=== PATIENT | female | born 1960 | race Caucasian/White ===

== ENCOUNTER → 2016-07-14 | Outpatient (CLI) | payer MEDICARE, MEDICAID ==
[~2016-07-14] MED LIST: ABILIFY20 MG PO; ACTOS30 MG PO; AEROCHAMBER1 DEV IH; ALBUTEROL-200 PUFFS/ IH; ANUSOL HC 25MG25 MG PR; ASPIRIN ADULT L81 MG PO; ASPIRIN CHILDRE81 MG PO; ASPIRIN325 MG PO; AUGMENTIN XR 101 TER PO; AZITHROMYCIN250 M1 PO; CIPRO 500MG TA500 MG PO; CLARITIN 10MG T10 MG PO; CRESTOR20 MG PO; CRESTOR40 MG PO; DIAZEPAM10 MG PO; DILAUDID2 MG PO; DOXYCYCLINE HY100 M4 PO; EFFIENT10 M1 PO; ESTRACE 2MG. TAB2 MG PO; ESTRADIOL1 MG PO; ESTRADIOL2 MG PO; Estrace 1MG Tabl1 MG PO; FENTANYL 225 MCG/EAC; FLOMAX 0.4MG C0.4 MG PO; GEMFIBROZIL600 M1 OR; HYDROCODONE 7.51 TAB PO; HYDROCODONE-APA1 TA1 PO; IMDUR30 MG PO; IPRATROPIUM BROM3 M1 IH; KEFLEX 500MG.500 MG PO; LASIX20 MG PO; LOVAZA1 GM PO; LYRICA50 MG PO; MEDROL 4MG. DOSE4 MG PO; METOPROLOL25 MG PO; MOMETASONE FUROA0.11 TP; MOTRIN800 MG PO; NAPROXEN SODIU500 MG PO; NASONEX0.05 MG/AC NS; NITROQUICK0.4 MG SL; NORCO 325 MG-51 TAB PO; OMEGA-31000 MG PO; OMEPRAZOLE20 MG PO; OMEPRAZOLE40 MG PO; PERCOCET1 TA1 PO; PLAVIX75 MG PO; POTASSIUM CHLO10 ME3 PO; PREDNISONE20 MG PO; PROMETHAZINE HC25 M1 PO; PROMETHAZINE25 M1 PO; PROSED D/S1 TAB PO; RANEXA1000 M2 PO; RANEXA500 M1 PO; SLEEP MED PO; SYNTHROID 0.0.125 MG PO; SYNTHROID 0.10.15 MG PO; SYNTHROID0.1 MG PO; TESSALON PERLE100 MG PO; TRAMADOL 50MG T50 MG PO; TRAZODONE HCL50 MG PO; TRAZODONE100 MG PO; TRILIPIX45 M1 PO; TUSSIGON 1.5 MG1 TAB PO; VALIUM10 MG PO; VALIUM5 MG PO; VITAMIN D1000 IU PO; ZITHROMAX Z PA250 MG PO; ZOFRAN ODT4 MG PO; ZOLOFT100 MG PO
--- NOTE | 2016-07-15 07:48 | RADIOLOGY REPORT PS360 ---
KUB (SINGLE VIEW) ORDERING PHYSICIAN : Rex Delgado MD PATIENT AGE: 56 years GENDER: Female INDICATION: LEFT KIDNEY STONE F/U left urinary tract obstruction follow-up TECHNIQUE: Supine abdomen radiograph-KUB COMPARISON: Previous KUB 07/04/[address] abdomen 06/29/2016 FINDINGS Left kidney 3 or 4 tiny faint calculi identified within the calyces of left kidney from upper to lower pole. These each appear to measure less than 2.5-3 mm mm size on plain film. Faintly seen but they do seem to match the calculi seen on recent CT June 29, 2016. The patient also had a calculus at the proximal left ureter on that image which I initially question may be projected over the tip of left transverse process of L3, but is similar appearance was seen on a previous plain film from October 2014 and thus this may be the patient's baseline appearance here as I would've expected the calculus didn't migrated further distally The small density projected over the left sacrum just medial to the inferior SI joint is also a stable finding since 2014 and related to either vascular or osseous calcification Right kidney. The small less than 2.5 mm calculi at right kidney on recent CT, at lower pole and mid right kidney is not as readily apparent on plain film. Only questionably evident at right kidney. No calcifications along right ureter. Th Right ureter. Bowel Anastomosis evident at the right pelvis numerous phleboliths otherwise at the pelvic basin are similar to 2015 KUB is well Normal bowel gas pattern IMPRESSION 1. Left kidney. Again note 3 or 4 small punctate less than 3 mm calculi throughout calyces left kidney. 2. The calculus seen at the proximal left ureter is only question is seen.- Possibly could reflect a faint density just off the tip of L3 transverse process (however I would note a similar appearance was seen on 2014 study and this may may reflect the patient's anatomy here) 3. The small punctate calculi at the right kidney are not readily apparent on plain film. Only question is seen
== END ==
LOC: RAD 17:11
DX: N20.1 Calculus of ureter (principal)

== ENCOUNTER → 2016-08-01 | Outpatient (CLI) | payer MEDICARE, MEDICAID ==
--- NOTE | 2016-08-03 09:20 | RADIOLOGY REPORT PS360 ---
CT ABD PELVIS W/O CONTRAST ORDERING PHYSICIAN : Rex Delgado MD PATIENT AGE: 56 years GENDER: Female INDICATION: NEPHROLITHIASIS HISTORY of kidney stones. TECHNIQUE: Helical CT scans abdomen pelvis with no oral nor IV contrast. COMPARISON: June 29, 2016 FINDINGS Lower thorax. Lung bases are clear with no acute findings. Heart upper normal in size with coronary calcification and stents. Abdomen./Pelvis. Lack of oral and IV contrast decreases sensitivity Liver: unremarkable. gallbladder surgically removed. No ductal dilatation Spleen: unremarkable. Normal size. Granulomatous calcifications. Pancreas. No significant findings. Stable minimal calcification mid pancreas possibly from old pancreatitis has been present since 2013. Adrenals unremarkable Previous subtotal colectomy with ileocolic anastomosis rectosigmoid region.. Anastomosis intact with Generous stool through this region.. Small bowel, areas of upper normal wall thickness but no dilatation nor obstruction. Pelvis. Hysterectomy. No adnexal masses. Urinary bladder partially decompressed. No free fluid at pelvis. Kidneys. No current urinary tract obstruction or hydronephrosis Scattered small punctate nonobstructive renal calculi in bilaterally. LEFT KIDNEY.: The largest calculus measuring less than 3.5 mm at the mid left kidney. A scattered few Other small less than 3 mm calculi elsewhere throughout left kidney. Recent left obstructive uropathy noted on June 2014 CT has resolved. No calculi or findings along left ureter. No left ureteral dilatation. No residual hydronephrosis on the left.. RIGHT KIDNEY: tiny less than 2.5 mm calculi lower pole and midportion right kidney Incidental note extensive atherosclerotic calcification of the aorta with what appears to be greater than 70% % cross section stenosis at the distal abdominal aorta. The lumen narrows to 4.4 mm. Warrants cardiovascular consult. Does patient have claudication? . IMPRESSION: 1. The recent left obstructive uropathy June 2016 CT study, has fully resolved. No hydronephrosis. No residual ureteral calculi on left. 2. Scattered small punctate nonobstructive calculi bilaterally noted both kidneys, as detailed in text 3. Incidentally note a fairly high-grade atherosclerotic stenosis distal abdominal aorta, just above bifurcation. Although fairly long-standing warrants vascular/cardiovascular consult.
== END ==
LOC: RAD 07-30 13:45
DX: N20.0 Calculus of kidney (principal)

== ENCOUNTER 2017-05-03 20:01 | Emergency (ER) | payer MEDICARE, MEDICAID ==
[~2017-05-03] VITALS: Ht 160 cm; Wt 79.4 kg
[2017-05-03 20:19] LABS: HEMOGLOBIN 14.7 g/dL (12.2-16.2); LYMPH # 3.5 K/mm3 (0.7-4.5); LYMPH % 33.9 % (10-50.0)
--- NOTE | 2017-05-03 20:24 | Emergency Room Report ---
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 N Clinical Suspician of Infection? N Mental Status: 1 - Regular (Normal Baseline) Sepsis Risk:Low Sepsis Risk Have you (or family members/close friends) recently traveled outside the [place]? N If Yes, where/when: Have you had exposure to infectious disease within the past month? N TB? Other? Specify: Source patient, RN notes reviewed, family, old records Exam Limitations no limitations Comment pt with chest pain which started tonight with rad to back - similiar to prev pain Cardiac Chest Pain Chest pain indicative of cardiac No Timing/Duration this evening Severity moderate ALLERGIES Coded Allergies: aspartame (From [employer] ASPARTAME) (05/01/16) fluconazole (05/01/16) lincomycin (05/01/16) Home Medications Active Scripts TAMSULOSIN HCL (Flomax 0.4MG) 0.4 MG PO QHS #14 CAP Prov: 06/29/16 Ondansetron (Zofran 4MG Odt) 4 MG PO Q8HP PRN NAUSEA AND VOMITING #10 ODT Prov: 06/29/16 Diazepam (Valium) 10 MG PO QID #60 TAB Prov: 05/15/16 Reported Medications Ranolazine (Ranexa) 1,000 MG PO BID Aspirin (Aspirin EC) 81 MG PO DAILY SERTRALINE HYDROCHLORIDE (Zoloft 100MG) 200 MG PO DAILY ALBUTEROL-IPRATROPIUM (Iprat-Albut 0.5-3(2.5) MG/3 Ml) 3 ML IH QIDP Nitroglycerin (Nitroquick) 0.4 MG SL PRN Omeprazole (Omeprazole 40MG) 40 MG PO DAILY #30 ECC Rosuvastatin Calcium (Crestor) 40 MG PO DAILY Levothyroxine Sodium (Synthroid 0.125MG) 0.125 MG PO DAILY Mometasone Furoate 15 GM TP QHS #60 History Medical History General CAD? Yes Angina: Yes GA: Yes Hypertension? Yes Hyperlipidemia? Yes CHF? Yes DVT? No PE? No COPD? Yes Asthma? No Anemia? No GERD? No Gastric ulcers? No GI Bleed? No Hernia? Yes Thyroid Problems? No Hypothyroidism? No CVA? No Seizures? No Diabetes? Yes Insulin Dependent: No Insulin Pump: No Home FSBS? Yes Renal Insuffiency? No End Stage Renal Disease? No UTI? Yes Stones? No BPH? No GB Disease: Yes Nephritic Syndrome? No Asplenia? No Hepatitis? No Sickle Cell Disease? No Arthritis? No Migraines? No Cataracts? No Glaucoma? No MRSA? No HIV? No TB? No Anxiety? Yes Depression? No Cancer? No More? No Immunization Hx DT/Tetanus Unknown Flu 2015-FSN Pneumonia Received In Past Surgical Hx Previous Surgery?Y Tubal Ligation T&A,BLADDER X 6 EXP SURGERY/TOENAILS HEMMORRHOID/HEART STENTX8 APPY/RT ELBOW HYSTERECTOMY ERCP COLON SURGERY GB,RIGHT SHOULDER UMBILICAL HERNIA X 5 THYROID LYMPH NODE IN LEFT NECK GOITER/OPEN HEART PART. RIGHT LYMPH NODE CABG X 2,LAST 08/03/07 DIGITAL [employer]OR Hx LMP N/A Family History Family Hx Diabetes Yes CAD Yes Hypertension No Hyperlipidemia Yes Cancer Yes TB No Social History Smoking Hx Smoker: Current Every Day Smoker Tobacco: Yes Type N/A Packs/day < 1 Pack Are you/the child exposed to second-hand smoke: Yes Alcohol Alcohol: No Drugs none Review of Systems All Other Systems Reviewed and Negative Constitutional denies fever Eyes denies drainage ENT denies: ear pain, epistaxis, throat pain. Respiratory denies cough, denies shortness of breath Cardiovascular chest pain, denies palpitations, denies syncope Gastrointestinal denies abdominal pain, denies vomiting Genitourinary denies: dysuria, frequency, hesitancy, hematuria. Musculoskeletal denies back pain, denies joint pain, denies joint swelling, denies neck pain Skin denies rash Psychiatric/Neurological denies headache, denies seizure Physical Exam Vital Signs Vital Signs Date Time Temp Pulse Resp B/P Pulse O2 O2 Flow FiO2 Ox Delivery Rate 05/032 61 18 132/73 93 05/03 2125 20 05/03 2125 67 18 125/64 93 05/03 2040 101 18 144/84 96 05/03 2004 98.2 66 18 139/71 100 - WBC >12,000 or <4,000 or 10% bands? 2 or more SIRS Criteria Met? B/P:132/73 MAP:93 Creatinine >2.0? UA output<0.5ml/kg/hr for 2 hrs? Platelet count >100,000? Lactate >2.0mmol/1? INR >1.2 or PTT > than 60 sec? Evidence of Organ Dysfunction? Provider documented clinical suspician of infection? N Sepsis Criteria Count: 0 Sepsis Risk: Low Sepsis Risk General Appearance no apparent distress Eye Exam - bilateral eye PERRL, bilateral eye EOMI Ear, Nose, Throat normal ENT inspection Neck supple Respiratory Status No: respiratory distress. Lung Sounds bilateral: lungs clear. Cardiovascular regular rate/rhythm Peripheral Pulses Pulses normal Yes Gastrointestinal soft Extremities normal inspection Strength 4 Upper Ext (L), 4 Upper Ext (R), 4 Lower Ext (L), 4 Lower Ext (R) Neurologic alert, cashier general II-XII nml as tested, no motor/sensory deficits Reflexes Reflexes normal No Mental status normal mood/affect Skin intact Medical Decision Making LABS/Meds/Orders Pt receiving controlled substance in ED? No Results/Orders Laboratory Tests 05/03/174: Troponin I < 0.02 05/03/172004: Sodium 143, Potassium 3.7, Chloride 105, Carbon Dioxide 25, BUN 14, Creatinine 0.9, Estimated Creat Clear 86, Estimated GFR (MDRD) 65, Glucose 178 H, Calcium 9.4, Total Bilirubin 0.3, AST 18, ALT 29, Alkaline Phosphatase 177 H, Creatine Kinase 48, CK-MB (CK-2) Rel Index 2.5, CK and CKMB Interp 1.2, Troponin I < 0.02 , Total Protein 8.2, Albumin 4.0, Globulin 4.2 H, Albumin/Globulin Ratio 1.0 L , WBC 10.3, RBC 4.99, Hgb 14.7, Hct 44.7, MCV 89.7, RDW 13.9, Plt Count 204, MPV 8.0, Gran % 60.2, Gran # 6.2, Lymphocytes % 33.9, Monocytes % 3.3, Eosinophils % 1.7, Basophils % 0.9, Lymphocytes # 3.5, Monocytes # 0.3, Eosinophils # 0.2, Basophils # 0.1, PUBS MCHC 32.8, MCH 29.4 Current Medication Orders Sig/Lesley Start time Last Medication Dose Route Stop Time Status Admin Diphenhydramine HCl 25 MG ONCE ONE 05/03 2130 DC 05/03 IV 05/03 Hydromorphone HCl 1 MG ONCE ONE 05/03 2130 DC 05/03 IV 05/03 Diphenhydramine HCl 0 .STK-MED ONE 05/03 2122 DC .ROUTE Hydromorphone HCl 0 .STK-MED ONE 05/03 2121 DC .ROUTE Famotidine 0 .STK-MED ONE 05/03 2036 DC IV Metoclopramide HCl 0 .STK-MED ONE 05/03 2035 DC .ROUTE Famotidine 20 MG ONCE ONE 05/03 2030 DC 05/03 IV 05/03 Metoclopramide HCl 10 MG ONCE ONE 05/03 2030 DC 05/03 IVP 05/03 Sodium Chloride 8 ML ONCE ONE 05/03 2030 DC 05/03 IV 05/03 Sodium Chloride 10 ML PRN PRN 05/03 2015 AC IV 05/04 2009 Orders Procedure Date/time Status TROPONIN I 05/03 2148 Complete ELECTROCARDIOGRAM REQUEST 05/03 2009 Active CHEST-PORTABLE 05/03 2009 Active IV SALINE LOCK 05/03 2009 Active CBC WITH AUTO DIFF 05/03 2009 Complete CARDIAC ENZYMES 05/03 2009 Complete CHEM 12 PROFILE 05/03 2009 Complete 12 LEAD EKG-ADRIEL (INITIAL) 05/03 UNK Active CM/EKG CM/coronary care unit nurse Rhythm Normal Sinus Rhythm EKG compared w/(date of old), non-spec. ST/Twave chgs XRAY/CT/US XRAY/CT/US XRAY chest XR interpretation by reviewed by me Xray Results normal/NAD Departure Departure Time of Disposition 2234 Disposition DC Home or Self Care(routine) Clinical Impression Primary Impression: Chest pain Qualifiers: Chest pain type: precordial pain Qualified Code: R07.2 - Precordial pain Condition STABLE Referrals Emani Kasper MD (Family) Patient Instructions DI for Chest Pain Additional Instructions call pcp and card in am for follow up Discharge Counseling Counseled pt/family regarding diagnosis, test results, medications/RX, follow up needs ED Critical Care Critical Care No at [id number]
[2017-05-03 20:40] LABS: BUN 14 mg/dL (7-18)
[2017-05-03 20:42] LABS: GFR (ESTIMATED) 65 ML/MIN (59-)
--- OUTSIDE RECORDS SUMMARY | 2017-05-03 20:48 | External Medical Summary Rpt | CCD ---
Author Author , MARY Organization MARY Address Unknown Phone Care Team Providers Care Moss Bleacher Name Role Phone WAYNE DE, WAYNE Unavailable Unavailable DE WAYNE, LUCIE D, Unavailable Unavailable WAYNE, LUCIE D [facility], Unavailable Unavailable [facility] Unavailable Unavailable [facility], [facility] Unavailable Unavailable ASSOCIATES, PSC, [facility], Unavailable Unavailable [facility] BESSON, MICHELLE A, Unavailable Unavailable BESSON, MICHELLE A JUNI GUADALUPE, JUNI GUADALUPE Unavailable Unavailable ALVIN ANT, ALVIN ANT Unavailable Unavailable [facility] Unavailable Unavailable SERVICE, [facility] Unavailable Unavailable SERVICE, [facility], Unavailable Unavailable [facility], Unavailable Unavailable [facility], Un[facility], Unavailable Unavailable [facility] Unavailable Unavailable HEALTH, [facility] LEOPOLDO Joaquin, LEOPOLDO Joaquin Unavailable Unavailable LEOPOLDO Benton, LEOPOLDO Joaquin Unavailable Unavailable G Emani MINA COOPER, Unavailable Unavailable Emani Benton CROSSFIELD, DANNITA, Unavailable Unavailable CROSSFIELD, DANNITA XOCH[facility]L CINDY, Unavailable Unavailable XOCHITL CINDY PHU LEUNG, Unavailable Unavailable [facility], PHU [facility], Unavailable Unavailable [facility] SHIREEN BLACK Unavailable Unavailable [facility], Unavailable Unavailable [facility] ESAU ARRIOLA T, Unavailable Unavailable ESAU ARRIOLA T [facility] Unavailable Unavailable [facility], [facility] Unavailable Unavailable [facility]OCIATES, [facility] STACY DOMINGUEZ Unavailable Unavailable CARLOS HICKMAN, Unavailable Unavailable CARLOS HICKMAN S [facility] [facility], [facility] Unavailable Unavailable PAIN CAPONE JAMI, CAPONE Unavailable Unavailable JAMI HARRIES LORETO HARRIES Unavailable Unavailable LORETO [facility] Unavailable Unavailable INC, [facility] Unavailable Unavailable HOSPITAL P, [facility] P RAY, JESUS A, Unavailable Unavailable RAY, JESUS A [facility], Unavailable Unavailable [facility] Cathy Mcelroy EQUIPMENT INSTALLATION PROFESSIONAL, Unavailable Unavailable Cathy Mcelroy EQUIPMENT INSTALLATION PROFESSIONAL KEEDY LORETO, KEEDY LORETO Unavailable Unavailable [facility] Unavailable [facility], [facility] & Unavailable Unavailable HAND [facility], [facility] Unavailable Unavailable [facility], [facility] RODRIGUEZ EHSAN, RODRIGUEZ Unavailable Unavailable EHSAN ADRIEL JR DWI, ADRIEL Unavailable Unavailable JR DWI ADRIEL, JOELLEN E, Unavailable Unavailable ADRIEL, JOELLEN E [facility] Unavailable Unavailable LABORATORY, [facility] Unavailable Unavailable [facility], [facility] Unavailable Unavailable SERVICES, [facility] ALEXANDREA DUNHAM IGGY, Unavailable Unavailable ALEXANDREA DUNHAM IGGY [facility]IC [facility], MUSIC SIL[facility]IA Unavailable [facility]available [facility] Unavailable Unavailable [facility], [facility] Unavailable Unavailable [facility], [facility] KASSY DOBBINS, Unavailable Unavailable KASSY DOBBINS, Unavailable Unavailable Viry BARRETT, Unavailable Unavailable Viry BERRY [facility] & Unavailable Unavailable HOME [facility], [facility], Unavailable Unavailable [facility] Unavailable Unavailable LAB, [facility] Unavailable Unavailable LAB, PATHOLOGY & CYTOLOGY LAB HER, LITO, HER, Unavailable Unavailable [facility] & Unavailable Unavailable ANKLE SPECI, [facility] Unavailable Unavailable [facility]OC [facility], [facility] STARLA, SAMSON, STARLA, Unavailable Unavailable SAMSON RECHTIN ASSOCIATE DRAFTER, RECHTIN Unavailable Unavailable ASSOCIATE DRAFTER PAULO, JIMENEZ S, PAULO, Unavailable Unavailable JIMENEZ S VIC PURVIS Unavailable Unavailable Emani HO, Unavailable Unavailable Emani HO JAMES L, Unavailable Unavailable SYED TAFOYA SCHUMER Unavailable Unavailable BAR BANDAR WARREN, BANDAR Unavailable Unavailable BRIANA SOKAN, ANAYELI O, Unavailable Unavailable SOKAN, ANAYELI O [facility] Unavailable Unavailable EQUIPME, [facility] Unavailable Unavailable PHYSICIANS EKG, [facility] EKG [facility], Unavailable Unavailable [facility], Unavailable Unavailable [facility] MARGARET STEVENS, Unavailable Unavailable MARGARET STEVENS [facility], Unavailable [facility] Unavailable Unavailable [id number], [id number] NAYE PARKINSON, Unavailable Unavailable ESAU BALDWIN III, CHINO, Unavailable Unavailable TACOS CURRIE Unavailable Unavailable MICHELL MUNIZ, Unavailable Unavailable MICHELL FONG Purpose Continuity of Care Document - 07-05-2007 through 2016 Problems Code Diagnosis DOS Provider Status J449 CHRONIC 03-04-2017 [facility]IVE [facility] HOME PULMONARY HEALTH DISEASE UNS R159 FULL 03-04-2017 [facility] INCONTINENC H HOME E OF FECES HEALTH R32 UNSPECIFIED 03-04-2017 [facility] URINARY H HOME INCONTINENC HEALTH E E119 TYPE 2 02-22-2017 [facility] DIABETES HOME MELLITUS MEDICAL WITHOUT EQUIPME COMPLICATIO NS [id number] OTH 02-22-2017 [facility] FRACTURE HOME UNS LOWER MEDICAL LEG INIT EQUIPME ENC CLOS FX R072 PRECORDIAL 12-25-2016 NEW PAIN [facility] PSC R5381 OTHER 12-25-2016 NEW MALAISE [facility] PSC I10 ESSENTIAL 12-09-2016 [facility] P N B48585 ATHEROSCLER 12-09-2016 [place] OSIS CABG [facility] P ANGINA PECTORIS R079 CHEST PAIN 12-09-2016 [facility]PEC[facility] N200 CALCULUS OF 08-01-2016 [facility] N201 CALCULUS OF 07-29-2016 [place] URETER [facility] P Z09 ENC F/U 07-29-2016 [place] [facility] CMPL TX [facility] P THAN MALIG NEOPLSM V86329 PERSONAL 07-29-2016 [place] [facility] P CALCULI I2510 ASHD [place] 06-29-2016 [place] CORONARY [facility] ARTERY W/O INC ANGINA PECTORIS N132 HYDRONEPHRO 06-29-2016 [place] SIS W/RENAL MEDICAL & URETRL IMAGING ASS CALCULOUS OBST R1032 LEFT LOWER 06-29-2016 [place] QUADRANT [facility]ICAL PAIN IMAGING ASS Z720 TOBACCO USE 06-29-2016 [facility] INC J309 ALLERGIC 06-05-2016 [facility] RHINITIS PHYSICIANS UNSPECIFIED GROUP R05 COUGH 06-05-2016 [facility] J189 PNEUMONIA 05-12-2016 [facility] P R0602 SHORTNESS 05-12-2016 [facility] IM[facility]ING ASS R0989 OTH SPEC SX 05-12-2016 [place] & SIGNS MEDICAL INVLV THE IMAGING ASS CIRC & RESP SYS I509 HEART 05-01-2016 [facility] FAILURE [facility] UNSPECIFIED INC I08592 UNSPECIFIED 05-01-2016 [place] ASTHMA [facility] WITH ACUTE INC EXACERBATIO N J80 ACUTE 05-01-2016 [facility] RESPIRATORY AMBULANCE DISTRESS SERVICE SYNDROME R000 TACHYCARDIA 05-01-2016 [facility] UNSPECIFIED SERVICE R7989 OTHER SPEC 05-01-2016 [facility] ABNORMAL MEDICAL FINDINGS IMAGING ASS BLOOD CHEMISTRY J441 CHRONIC 04-24-2016 [place] OBSTRUCTIVE [facility] HOS[facility] PULMONARY INC DZ W/EXACERBAT ION J42 UNSPECIFIED 02-27-2016 [place] CHRONIC [facility] BRONCHITIS INC R911 SOLITARY 02-27-2016 [place] PULMONARY MEDICAL NODULE IMAGING ASS E785 HYPERLIPIDE 01-31-2016 [facility] U[facility]PEC[facility]IED [facility]INIC PSC 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 01-17-2016 [facility] UNS BHV PHYSICIANS ENDOCRN GROUP GLAND & OTH PART NS E039 HYPOTHYROID 01-17-2016 [facility] ISM PHYSICIANS UNSPECIFIED GROUP H9110 PRESBYCUSIS 01-17-2016 [facility] PHYSICIANS UNSPECIFIED GROUP EAR H905 UNSPECIFIED 12-06-2015 [facility] PHYSICIANS SENSORINEUR GROUP AL HEARING LOSS N3020 OTHER 09-18-2015 [facility] CYSTITIS [facility] P WITHOUT HEMATURIA R350 FREQUENCY 09-18-2015 [facility] MICTURITION [facility] P R351 NOCTURIA 09-18-2015 [facility] P R102 PELVIC AND 08-14-2015 [place] PERINEAL [facility] P 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 R001 BRADYCARDIA 08-03-2015 NEW [facility] UNSPECIFIED CLINIC PSC R300 DYSURIA 08-03-2015 [facility] R9431 ABNORMAL 08-03-2015 NEW ELECTROCARD [facility] IOGRAM CLINIC PSC [id number] FOREIGN 08-03-2015 [facility] TRACT INITIAL ENC [id number] EROSION 08-03-2015 [facility] OTHER HOSPITAL IMPLANTED MESH ORGN/TISS INITIAL G4733 OBSTRUCTIVE 07-06-2015 [facility] SLEEP HOME APNEA ADULT MEDICAL PEDIATRIC EQUIPME N210 CALCULUS IN 04-20-2015 NEW BLADDER [facility]INIC PSC N211 CALCULUS IN 04-20-2015 [facility] PSC N9989 OTH 04-20-2015 [facility] POSTPROC HOSPITAL COMP DISORDERS GENITOURINA RY SYSTEM R319 HEMATURIA 04-20-2015 [facility] UNSPECIFIED HOSPITAL L029VFF FOREIGN 04-20-2015 NEW BODY IN [facility] BLADDER CLINIC PSC INITIAL ENCOUNTER [id number] OTH MECH 04-20-2015 [facility] COMP OTH ASSOCIATES URINARY PSC DEVICES IMPL INIT ENC N34061U EXPOSURE OF 04-20-2015 [facility] IMPL HOSPITAL MESH INTO ORGN/TISS INITIAL Z7982 CUSTODIAL 04-20-2015 [facility] CURRENT USE [facility] P31146 OTHER LONG 04-20-2015 [facility] CURRENT DRUG THERAPY G4736 SLEEP REL 04-07-2015 [facility] HYPOV[facility] NEUROSCIENC TION ES CENT CONDITIONS CLASS ELSW G4730 SLEEP APNEA 04-04-2015 [facility] UNSPECIFIED INC R1030 LOWER 04-04-2015 [facility] ABDOMINAL MEDICAL PAIN IMAGING ASS UNSPECIFIED 59174 OBSTRUCTIVE 03-06-2015 [facility] SLEEP HOME APNEA MEDICAL EQUIPME 14346 HYPOXEMIA 02-15-2015 [facility] NEUROSCIENC ES CENT 7802 SYNCOPE AND 02-05-2015 NURSES COLLAPSE REGISTRY & HOME HE 26731 UNSPECIFIED 02-05-2015 NURSES URINARY REGISTRY & [place] [address] DIAB W/O 01-01-2015 [facility] COMP TYPE MEDICAL II/UNS NOT STATED UNCNTRL 496 CHRONIC 12-20-2014 [facility] AIRWAY HOME OBSTRUCTION MEDICAL NEC EQUIPME 8248 UNSPECIFIED 12-20-2014 [facility] CLOSED HOME FRACTURE OF MEDICAL ANKLE EQUIPME 5920 CALCULUS OF 10-23-2014 [facility] 23240 ABDOMINAL 10-23-2014 [place] PAIN, MEDICAL UNSPECIFIED IMAGING ASS SITE 28540 CHEST PAIN 10-16-2014 UNSPECIFIED [facility] EKG 486 PNEUMONIA, 08-22-2014 [facility] INC 515 POSTINFLAMM 08-22-2014 [facility] ATORY MEDICAL PULMONARY IMAGING ASS FIBROSIS 15024 OTHER 08-22-2014 [place] DISEASES OF MEDICAL LUNG NOT IMAGING ASS ELSEWHERE CLASSIFIED 7821 RASH AND 08-22-2014 [facility] OTHER MEM [facility] NONSPECIFIC INC SKIN ERUPTION 7862 COUGH 08-22-2014 [facility] 7993 UNSPECIFIED 07-14-2014 NEW DEBILITY [facility] PSC 25555 ABDOMINAL 07-12-2014 [facility] PAIN, MEM HOSP EPIGASTRIC INC 4739 UNSPECIFIED 07-05-2014 [facility] SINUSITIS MEM HOS[facility] INC 8300 CLOSED 07-05-2014 [place] DISLOCATION MEDICAL OF JAW IMAGING ASS 2459 UNSPECIFIED 04-18-2014 [facility] THYROIDITIS INC 48538 DYSPHAGIA 04-18-2014 [facility] UNSPECIFIED MEM HOSP INC 4149 UNSPECIFIED 12-15-2013 [facility] CHRONIC ISCHEMIC HEART DISEASE 28746 SWELLING OF 12-15-2013 [facility] [place] [facility] 96534 OTHER CHEST 12-15-2013 [place] GIN PAIN 19064 GEN 05-30-2013 [facility] OSTEOARTHRO L REHAB SIS ASSOC PSC INVOLVING MULTIPLE SITES 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 03777 CORONARY 05-24-2013 SARTINI J ATHEROSCLER OSIS [place] CORONARY ARTERY 7242 LUMBAGO 04-20-2013 [place] [facility] INC 81851 REFLUX 03-30-2013 [facility] ANT ESOPHAGITIS 5952 OTHER 03-08-2013 WAYNE DE CHRONIC CYSTITIS 59885 OTHER 03-04-2013 X[facility] DISEASES OF CINDY SPLEEN 4400 ATHEROSCLER 03-04-2013 [facility] OSIS OF CINDY AORTA 5718 OTHER 03-04-2013 [facility] CHRONIC CINDY NONALCOHOLI C LIVER DISEASE 5929 UNSPECIFIED 03-04-2013 [facility] URINARY MEM HOSP CALCULUS INC 17255 ABDOMINAL 03-04-2013 [facility] PAIN, LEFT MEM HOSP UPPER INC QUADRANT 4439 UNSPECIFIED 01-06-2013 FINE ALEXEI PERIPHERAL VASCULAR DISEASE 27015 OTHER 01-04-2013 JUNI GUADALUPE SPECIFIED CARDIAC DYSRHYTHMIA S 48087 ATHEROSLERO 01-04-2013 JUNI GUADALUPE NATV ART EXTREM W/INTERMIT CLAUDICAT 5303 STRICTURE 01-04-2013 CAPONE JAMI AND STENOSIS OF ESOPHAGUS 2724 OTHER AND 01-03-2013 ADRIEL DUNHAM UNSPECIFIED DWI HYPERLIPIDE MARGARET 4019 UNSPECIFIED 01-03-2013 ADRIEL DUNHAM ESSENTIAL DWI HYPERTENSIO N 4111 INTERMEDIAT 01-03-2013 [facility] Lara CORONARY EMERGENCY SYNDROME SERVICES 412 OLD 01-03-2013 ADRIEL DUNHAM MYOCARDIAL DWI INFARCTION 4139 OTHER AND 01-03-2013 ADRIEL UNSPECIFIED DWI ANGINA PECTORIS 4293 CARDIOMEGAL 01-03-2013 X[facility]CH[facility] Y CINDY 00807 NONSPECIFIC 01-03-2013 JUNI GUADALUPE ABNORMAL ELECTROCARD IOGRAM V4581 POSTSURGICA 01-03-2013 XOCHITL L CINDY AORTOCORONA RY BYPASS STATUS 2449 UNSPECIFIED 11-29-2012 RODRIGUEZ EHSAN HYPOTHYROID ISM 05246 ACUT ID 09-21-2012 VIC Joaquin SUBENDOCARD IAL INFARCT EPIS CARE UNS 05627 ACUT ID 09-19-2012 MARITA DANGELO SUBENDOCARD IAL INFARCT INIT EPIS CARE 73400 OTHER 09-18-2012 ADRIEL DUNHAM CONVULSIONS DWI 6929 CONTACT 09-16-2012 MUSIC SILVIA DERMATITIS& OTHER ECZEMA DUE UNSPEC CAUSE 6953 ROSACEA 09-16-2012 MUSIC SILVIA 2448 OTHER 08-24-2012 [facility] SPECIFIED HOSPITAL ACQUIRED HYPOTHYROID ISM 21791 INCI HERNIA 08-24-2012 [facility] WITHOUT HOSPITAL MENTION OBSTRUCTION /GANGRENE V5866 LONG-TERM 08-24-2012 [facility] USE OF [facility]ITAL [facility] V5869 LONG-TERM 08-24-2012 [facility] (CURRENT) HOSPITAL USE OF OTHER MEDICATIONS 5989 UNSPECIFIED 07-13-2012 [facility] P 4659 ACUTE URIS 05-13-2012 ALEXANDREA DUNHAM OF [facility] UNSPECIFIED SITE 485 BRONCHOPNEU 04-07-2012 BANDAR DYSON ORGANISM UNSPECIFIED 77928 COR 03-19-2012 [facility] TYPE VESSEL [place]/LOVELY T 5969 UNSPECIFIED 03-19-2012 VIC Joaquin DISORDER OF BLADDER 68684 OSTEOARTHRO 03-19-2012 [facility] HOSPITAL WHETHER GEN/LOC UNSPEC SITE 08409 MIXED 03-19-2012 [facility] HOSPITAL E URGE AND STRESS 49749 URINARY 03-19-2012 [facility] HOSPITAL 6259 UNSPEC 03-16-2012 WAYNE DE SYMPTOM ASSOC W/FEMALE GENITAL ORGANS 06842 INCOMPLETE 03-16-2012 WAYNE DE BLADDER EMPTYING 13383 DISPLCMT 03-09-2012 [place] LUMBAR MEDICAL INTERVERT IMAGING ASS DISC W/O MYELOPATHY 96293 ABDOMINAL 03-09-2012 [facility] PAIN RIGHT [facility] LOWER INC QUADRANT 88521 MIGRAINE 03-08-2012 JAMAL R UNS H W/INTRACTAB L W/O STATUS MIGRAINOSUS 73320 URETHRAL 03-02-2012 WAYNE DE SYNDROME NOS 7231 CERVICALGIA 12-21-2011 [facility] 61595 OTHER 12-21-2011 WEHRMAN III MALAISE AND IGGY FATIGUE 7840 HEADACHE 12-21-2011 WEHRMAN III IGGY E8889 UNSPECIFIED 12-21-2011 [facility] 3384 CHRONIC 12-11-2011 LEOPOLDO Benton PAIN SYNDROME 4280 CONGESTIVE 12-11-2011 LEOPOLDO Benton HEART FAILURE UNSPECIFIED 84851 MICROSCOPIC 12-11-2011 LEOPOLDO Benton HEMATURIA 68942 ABDOMINAL 12-11-2011 LEOPOLDO Benton PAIN, GENERALIZED 2768 HYPOPOTASSE 11-12-2011 LEOPOLDO Benton MARGARET 4292 UNSPECIFIED 11-12-2011 LEOPOLDO Benton CARDIOVASCU LAR DISEASE 61419 NAUSEA 10-31-2011 [facility] [place] [facility] 18671 ABDOMINAL 10-31-2011 [facility] PAIN RIGHT EMERGENCY UPPER SERVICES QUADRANT 7934 NONSPECIFIC 10-31-2011 SHIREEN STEFAN ABN FINDING RAD & OTH EXAM GI TRACT 41554 OTHER 10-31-2011 [facility] ILL-DEFINED EMERGENCY CONDITIONS SERVICES 64270 UNSPECIFIED 10-30-2011 RECHTIN ASSOCIATE DRAFTER PYELONEPHRI TIS 5921 CALCULUS OF 09-25-2011 NEW URETER [facility] PSC 2689 UNSPECIFIED 09-23-2011 WAYNE DE VITAMIN D DEFICIENCY 7880 RENAL COLIC 09-21-2011 [facility] 591 HYDRONEPHRO 09-20-2011 [facility] MEDICAL IMAGING ASS 20585 OTHER 09-20-2011 [place] SPECIFIED MEDICAL DISORDER OF IMAGING ASS KIDNEY AND URETER 83404 ABDOMINAL 09-20-2011 LEOPOLDO Joaquin PAIN OTHER SPECIFIED SITE 7291 UNSPECIFIED 08-22-2011 [place] MYALGIA PAIN AND MYOSITIS 78901 UNSPECIFIED 08-15-2011 [place] TE[facility] FILM VISION INSUFFICIEN CY 5180 PULMONARY 08-09-2011 [place] COLLAPSE [facility]ICAL [facility]ING ASS 5183 PULMONARY 08-09-2011 [place] EOSINOPHILI MEDICAL A IMAGING ASS 45811 PAINFUL 08-09-2011 WEHRMAN III RESPIRATION IGGY 55660 PAIN IN 08-01-2011 [facility] DI[facility] PELVIC REGION AND THIGH 83005 MUSCLE 08-01-2011 [facility] WEAKNESS DIABETIC (GENERALIZE D) 26007 OTH COMPS 06-27-2011 NEW DUE OTH [facility]IN[facility] PSC ORTHOPED DEVICE IMPL&GFT 92076 OTH COMPS 06-27-2011 [facility] PSC PROSTH DEVICE IMPL&GFT 70979 OTHER 06-27-2011 ANESTHESIA SPECIFIED ASSOC PSC COMPLICATIO NS NEC V7281 PRE-OPERATI 06-27-2011 NEW VE [facility] CARDIOVASCU CLINIC PSC LAR EXAMINATION 86420 NONUNION OF 06-24-2011 PODIATRIC FRACTURE FOOT & ANKLE SPECI 460 ACUTE 06-11-2011 LEOPOLDO J NASOPHARYNG ITIS 4720 CHRONIC 03-27-2011 [place] RHINITIS [facility] ASS 4660 ACUTE 02-06-2011 [facility] BRONCHITIS ASSOCIATES 7904 NONSPEC 12-13-2010 [place] ELEVATION MEDICAL OF LEVELS IMAGING ASS OF TRANSAMINAS E/LDH 7871 HEARTBURN 10-21-2010 [facility] 6823 CELLULITIS 10-03-2010 [facility] AND ABSCESS EMERGENCY OF UPPER SERVICES ARM AND FOREARM 3569 UNSPEC 09-10-2010 [facility] OPATHIC PERIPHERAL NEUROPATHY 3560 HEREDITARY 09-03-2010 ELENITA LORETO PERIPHERAL NEUROPATHY 18576 PAIN IN 08-07-2010 [place] JOINT, ORTHOPEDIC SHOULDER & HAND S REGION 13395 UNSPEC 07-30-2010 [facility] DISORDERS L REHAB BURSAE&TEND ASSOC [facility] ONS SHOULDER REGION 7265 ENTHESOPATH 07-30-2010 PROFESSIONA Y OF HIP L REHAB REGION ASSOC PSC 8409 SPRAIN&STRA 07-30-2010 PROFESSIONA IN UNSPEC L REHAB SITE ASSOC PSC SHOULDER&UP PER ARM V0260 UNSPECIFIED 07-16-2010 [facility] VIRAL [facility] HEPATITIS INC CARRIER 4610 ACUTE 06-27-2010 RODRIGUEZ EHSAN MAXILLARY SINUSITIS 4779 ALLERGIC 06-27-2010 RODRIGUEZ EHSAN RHINITIS CAUSE UNSPECIFIED 2662 OTHER 03-13-2010 [facility] B-COMPLEX ASSOCIATES DEFICIENCIE S 6278 OTHER SPEC 02-20-2010 [place] MENOPAUSAL& MEDICAL POSTMENOPAU IMAGING ASS ALEC DISORDER V7612 OTHER 02-20-2010 [place] SCREENING MEDICAL MAMMOGRAM IMAGING ASS V762 SCREENING 02-13-2010 PATHOLOGY & FOR CYTOLOGY MALIGNANT LAB NEOPLASM OF THE CERVIX 50881 SHORTNESS 01-30-2010 [facility] P V4509 OTHER 01-30-2010 [facility] SPECIFIED MEM HOSP CARDIAC INC DEVICE IN SITU 7245 UNSPECIFIED 11-21-2009 [facility] BACKACHE [facility] 59797 ESOPHAGEAL 10-01-2009 [place] [facility] REFLUX SERV FOUNDAT[facility] 89772 ATROPHIC 10-01-2009 PATHOLOGY & GASTRITIS CYTOLOGY WITHOUT LAB MENTION OF HEMORRHAGE 50210 OTHER SPEC 10-01-2009 [place] [facility] GASTRITIS SERV WITHOUT FOUNDATIO MENTION HEMORRHAGE V5863 LONG-TERM 10-01-2009 [facility] USE OF MEM HOSP ANTIPLATELE INC T/ANTITHROM BOTIC 7873 FLATULENCE 09-17-2009 [place] ERUCTATION MEDICAL AND GAS IMAGING PAIN ASSOCIATES 5990 URINARY 08-07-2009 [facility] TRACT [facility] INFECTION SITE NOT SPECIFIED 19635 LATERAL 08-07-2009 [facility] EPICONDYLIT ASSOCIATES IS OF [place]BOW 4553 EXTERNAL 06-25-2009 [facility] HEMORRHOIDS EMERGENCY WITHOUT SERVICES MENTION ASSOCIATES COMP 4555 EXTERNAL 06-25-2009 [facility] HEMORRHOIDS MEM HOS[facility] WITH OTHER INC COMPLICATIO N 490 BRONCHITIS 06-11-2009 [facility] NOT ASSOCIATES SPECIFIED ACUTE OR CHRONIC 75295 UNSPECIFIED 05-03-2009 [facility] VIRAL ASSOCIATES INFECTION IN CCE & UNS SITE 57423 CONJUNCTIVA 03-01-2009 [facility] L ASSOCIATES HEMORRHAGE 55425 BLEPHARITIS 02-05-2009 [facility] , ASSOCIATES UNSPECIFIED 53586 [facility] 02-02-2009 NEW COMPLICATIO [facility] N DUE CLINIC PSC CORONARY BYPASS GRAFT 53801 OTHER 01-10-2009 [facility] SPECIFIED ASSOCIATES CIRCULATORY SYSTEM DISORDERS 21718 VOMITING 01-10-2009 [facility] 2440 POSTSURGICA 01-04-2009 [facility] HYPOTHYROID LABORATORY ISM 62731 GLUCOCORTIC 01-02-2009 [facility] DEFICIENCY SERVICE 37416 OTHER ACUTE 01-02-2009 [facility] 7804 DIZZINESS 12-23-2008 [facility] PROF SERV 7919 OTHER 12-23-2008 PSYCHIATRIC EXAMINATION PROF SERV OF URINE 91840 UNSPEC 11-13-2008 [facility] MENTION OBST/GANGRE N V4589 OTHER 10-27-2008 [facility] L STATUS PSC OTHER 60572 MIGRAINE 10-23-2008 [facility] UNSP W/O DENOMINATIONAL INTRACT W/O HOSP STATUS MIGRAINOSUS V443 COLOSTOMY 10-23-2008 [facility] STATUS DENOMINATIONAL HOSP 15220 OTH VENTRAL 10-16-2008 [facility] AIDA W/O [facility] MENTION INC OBSTRUCTION /GANGREN 5789 UNSPECIFIED 10-12-2008 [facility] GASTROINTES TINAL TRACT 51027 ENTHESOPATH 09-13-2008 [facility] UNSPECIFIED SITE 7295 PAIN IN 09-06-2008 [facility] TISSUES OF LIMB 7212 THORACIC 07-25-2008 [facility], SPONDYLOSIS PHU WITHOUT MYELOPATHY 05932 OTH 07-24-2008 [facility] SPECIFIED [facility]OS[facility] INFLAMMATOR INC Y POLYARTHROP ATHIES OTH 22066 SINOATRIAL 06-18-2008 [facility] AMBULANCE DYSFUNCTION SERVICE 97119 PRECORDIAL 06-17-2008 Digital Performance 5950 ACUTE 04-11-2008 [facility] CYSTITIS H UROLOGY PSC 6256 FEMALE 03-21-2008 [facility] STRESS H UROLOGY INCONTINENC PSC E 7262 OTHER 02-29-2008 [facility] NEC V4582 POSTSURG 02-11-2008 [facility] TRANSLUMINA L COR ANGPLSTY STS 09218 DIAB 01-31-2008 Rickey RAY/OPHTH JESUS A MANIFESTS TYPE II/UNS TYPE UNCNTRL 19762 BORDERLINE 01-31-2008 R[facility] RAY OPEN JESUS A ANGLE BL FINDINGS LOW RSK 4785 OTHER 01-27-2008 PATHOLOGY & DISEASES OF CYTOLOGY VOCAL LAB CORDS 71411 DIAB 01-24-2008 [facility] W/NEURO DENOMINATIONAL MANIFESTS HOSP TYPE II/UNS NOT UNCNTRL 3572 POLYNEUROPA 01-24-2008 [facility] THY IN DENOMINATIONAL DIABETES HOSP V4579 OTHER 01-24-2008 [facility] ACQUIRED DENOMINATIONAL ABSENCE OF HOSP ORGAN 2761 HYPOSMOLALI 12-14-2007 [facility] A PROF SERV 62103 OBST 12-14-2007 [facility] BRONCHITIS [facility] W/ACUTE PROF SERV BRONCHITIS 24587 OTHER ACUTE 12-03-2007 [facility] [place] ANESTHESIA POSTOPERATI VE PAIN 98027 NONTRAUMATI 12-03-2007 [place] [facility] C RUPTURE AND HAND OF TENDONS SURGEONS OF [place] PSC 413 ANGINA 11-22-2007 [place] [facility] 52275 UNSPECIFIED 11-02-2007 [facility] RETENTION H UROLOGY OF URINE PSC 7820 DISTURBANCE 10-29-2007 [facility], OF SKIN ESAU SENSATION 42332 THYROTOX 10-06-2007 [facility] W/O [facility]OS[facility] GOITER/OTH INC CAUSE W/O CRISIS 2859 UNSPECIFIED 08-26-2007 [facility] 4011 ESSENTIAL 08-23-2007 [facility] 4259 UNSPECIFIED 08-03-2007 [facility], CARDIOMYOPA PSC THY 4264 RIGHT 08-03-2007 NEW BUNDLE [facility] PSC BLOCK 5119 UNSPECIFIED 08-03-2007 [facility] [place] PLEURAL RADIOLOGY EFFUSION V148 PERSONAL 07-06-2007 [facility] ALLERGY OTH SPEC MEDICINAL AGTS V462 DEPENDENCE 07-06-2007 [facility] ON [facility] [id number] GEN CONVUL 07-05-2007 STARLA, EPILEPSY SAMSON W/O MENTION INTRACT EPILEPSY 780.57 Sleep apnea [facility] [id number] Chronic [facility] R07.9 CHEST PAIN, UNSPECIFIED Allergies, Adverse Reactions, Alerts Type Drug Allergy Propensity to adverse reactions to substance Adverse Reaction to Substance Substance Reaction Severity Lincomycin I-HIVES Intermediate Fluconazole I-RASH Intermediate 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;VOMITING Unknown Clinical Alert Notifications Alert Diabetes: no eye exam in the last 365 days Diabetes: no lipid panel in the last 365 days Diabetes: no urine protein screening in the last 365 days Medications Na ND Rx Da Fi Fi Am Da Di Ph RX Ph St me C No te ll ll ou ys ag ar # ys at rm s nt no ma ic us Or Da si cy ia de te s n re d 00 10 11 30 30 00 CL Ac PI 90 -1 -0 .0 00 IN ti RI 42 0- 3- 00 00 IC ve N 01 20 20 44 EC 36 17 17 51 PH 0 25 AR 32 MA 5 CY MG TA BL ET 00 09 10 30 30 00 CL Ac PI 90 -1 -0 .0 00 IN ti RI 42 3- 6- 00 00 IC ve N 01 20 20 41 EC 36 17 17 83 PH 0 49 AR 32 MA 5 CY MG TA BL ET 00 08 09 30 30 00 CL Ac PI 90 -1 -1 .0 00 IN ti RI 42 7- 5- 00 00 IC ve N 01 20 20 41 EC 36 17 17 83 PH 0 49 AR 32 MA 5 CY MG TA BL ET 00 07 08 30 30 00 CL Ac PI 90 -2 -1 .0 00 IN ti RI 42 0- 8- 00 00 IC ve N 01 20 20 41 EC 36 17 17 83 PH 0 49 AR 32 MA 5 CY MG TA BL ET 00 06 07 30 30 00 CL Ac PI 90 -2 -2 .0 00 IN ti RI 42 2- 1- 00 00 IC ve N 01 20 20 41 EC 36 17 17 83 PH 0 49 AR 32 MA 5 CY MG TA BL ET HY 43 06 06 [address] 38 -0 -3 .0 00 IN ti OC 60 1- 0- 00 00 IC ve OD 11 20 20 43 -H 80 17 17 26 PH OM 1 19 AR AT MA RO CY P 5- 1. 5 MG TA B 00 03 06 30 30 00 CL Ac PI 90 -2 -3 .0 00 IN ti RI 42 8- 0- 00 00 IC ve N 01 20 20 41 EC 36 17 17 83 PH 0 49 AR 32 MA 5 CY MG TA BL ET 00 01 03 30 30 00 CL Ac PI 90 -2 -0 .0 00 IN ti RI 42 6- 3- 00 00 IC ve N 01 20 20 41 EC 36 17 17 83 PH 0 49 AR 32 MA 5 CY MG TA BL ET 00 12 02 30 30 00 CL Ac PI 90 -2 -0 .0 00 IN ti RI 42 9- 3- 00 00 IC ve N 01 20 20 39 EC 36 16 17 01 PH 0 45 AR 32 MA 5 CY MG TA BL ET 00 12 01 30 30 00 CL Ac PI 90 -0 -0 .0 00 IN ti RI 42 1- 9- 00 00 IC ve N 01 20 20 39 EC 36 16 17 01 PH 0 45 AR 32 MA 5 CY MG TA BL ET IP 00 12 0 No RA 48 -2 T- 70 2- Lo AL 20 20 ng BU 10 13 er T 1 0. Ac 5- ti 3( ve 2. 5) MG /3 ML SO 00 12 0 No WOJCIECH 00 -2 -M 90 2- Lo ED 04 20 ng RO 72 13 er L 2 12 Ac 5 ti MG ve AL CE 00 12 0 No FT 78 -2 RI 19 2- Lo AX 32 20 ng ON 89 13 er E 5 1 Ac GM ti ve AL Sa 63 07 0 No li 80 -2 ne 70 2- Lo 10 20 ng Fl 07 13 er us 5 h Ac 10 ti ML ve Sy ri ng e NI 59 07 0 No TR 63 -2 OG 00 2- Lo LY 30 20 ng CE 06 13 er RI 5 N Ac 0. ti 4M ve G/ DO SE SP RA Y GI 12 07 0 No 32 -2 CO 22 2- Lo CK 22 20 ng TA 22 13 er IL 2 Ac 60 ti ML ve UD C Mo 00 07 0 No rp 40 -2 hi 91 2- Lo ne 25 20 ng 83 13 er 4M 0 G/ Ac Ml ti ve Sy ri ng e Mo 00 07 0 No rp 40 -2 hi 91 2- Lo ne 25 20 ng 83 13 er 4M 0 G/ Ac Ml ti ve Sy ri ng e NT 00 07 0 No G 40 -2 0. 91 2- Lo 2 48 20 ng MG 20 13 er /M 2 L Ac IN ti ve D5 W Mo 00 04 0 No rp 40 -0 hi 91 7- Lo ne 76 20 ng 23 13 er 2M 0 G/ Ac Ml ti ve Sy ri ng e IN 00 04 1 No TE 08 -0 GR 51 6- Lo IL 17 20 ng IN 70 13 er 2 20 Ac 0 ti MG ve /1 00 ML AL NT 00 04 1 No G 40 -0 0. 91 6- Lo 2 48 20 ng MG 20 13 er /M 2 L Ac IN ti ve D5 W As 51 04 0 No pi 07 -0 ri 90 6- Lo n 00 20 ng 32 52 13 er 5M 0 G Ac Ta ti bl ve et Sa 63 04 1 No li 80 -0 ne 70 6- Lo 10 20 ng Fl 07 13 er us 5 h Ac 10 ti ML ve Sy ri ng e GI 12 04 0 No 32 -0 CO 22 6- Lo CK 22 20 ng TA 22 13 er IL 2 Ac 60 ti ML ve UD C Mo 00 04 0 No rp 40 -0 hi 91 6- Lo ne 25 20 ng 83 13 er 4M 0 G/ Ac Ml ti ve Sy ri ng e ON 00 04 0 No DA 64 -0 NS 16 6- Lo ET 08 20 ng RO 02 13 er N 5 HC Ac L ti 4 ve MG /[address] 63 04 0 No AV 65 -0 IX 31 6- Lo 33 20 ng 30 20 13 er 0 2 MG Ac ti TA ve BL ET Ep 00 04 0 No ti 08 -0 fi 51 6- Lo ba 17 20 ng ti 70 13 er de 2A Ac 2M ti G/ ve ML BJORN WOJCIECH S DO SE DI 00 08 10 2 90 30 CL 24 ID Ac AZ 59 -0 -0 .0 IN 30 LL ti EP 15 1- 7- 00 IC 35 ER ve AM 62 20 20 01 11 11 PH CA 10 0 AR RO MA L MG CY J TA LL BL C ET DI 00 08 09 2 90 30 CL 24 ID Ac AZ 59 -0 -0 .0 IN 30 LL ti EP 15 1- 6- 00 IC 35 ER ve AM 62 20 20 01 11 11 PH CA 10 0 AR RO MA L MG CY J TA LL BL C ET AL 51 08 08 0 10 10 CL 24 NO Ac LE 66 -2 -2 .0 IN 45 RF ti RG 00 5- 6- 00 IC 04 LE ve Y 72 20 20 ET RE 46 11 11 PH R LI 9 AR EF MA HE -N CY NR Y AL LL C DE CO NG TB 43 08 08 0 15 4 CL 24 NO Ac 38 -2 -2 .0 IN 44 RF ti 60 5- 5- 00 IC 82 LE ve 35 20 20 ET 00 11 11 PH R 1 AR MA HE CY NR Y LL C 43 08 08 0 15 5 CL 24 NO Ac 38 -0 -0 .0 IN 34 RF ti 60 9- 9- 00 IC 88 LE ve 35 20 20 ET 00 11 11 PH R 1 AR MA HE CY NR Y LL C 50 02 08 3 9. 28 CL 23 NELSON Ac T 11 -2 -0 00 IN 35 RR ti D2 10 5- 1- 0 IC 40 IE ve 99 20 20 S 1. 00 11 11 PH DA 25 1 AR MA D MG CY P (5 LL 0, C 00 0 UN IT ) DI 00 03 08 2 90 30 CL 23 ID Ac AZ 59 -1 -0 .0 IN 46 LL ti EP 15 4- 1- 00 IC 35 ER ve AM 62 20 20 01 11 11 PH CA 10 0 AR RO MA L MG CY J TA LL BL C ET 50 02 05 3 9. 28 CL 23 NELSON Ac T 11 -2 -0 00 IN 35 RR ti D2 10 5- 9- 0 IC 40 IE ve 99 20 20 S 1. 00 11 11 PH DA 25 1 AR MA D MG CY P (5 LL 0, C 00 0 UN IT ) DI 00 03 05 2 90 30 CL 23 ID Ac AZ 59 -1 -0 .0 IN 46 LL ti EP 15 4- 9- 00 IC 35 ER ve AM 62 20 20 01 11 11 PH CA 10 0 AR RO MA L MG CY J TA LL BL C ET 50 02 04 3 9. 28 CL 23 NELSON Ac T 11 -2 -1 00 IN 35 RR ti D2 10 5- 2- 0 IC 40 IE ve 99 20 20 S 1. 00 11 11 PH DA 25 1 AR MA D MG CY P (5 LL 0, C 00 0 UN IT ) DI 00 03 04 2 90 30 CL 23 ID Ac AZ 59 -1 -1 .0 IN 46 LL ti EP 15 4- 2- 00 IC 35 ER ve AM 62 20 20 01 11 11 PH CA 10 0 AR RO MA L MG CY J TA LL BL C ET DI 00 01 03 2 90 30 CL 22 ID Ac AZ 59 -0 -0 .0 IN 98 LL ti EP 15 4- 3- 00 IC 90 ER ve AM 62 20 20 01 11 11 PH CA 10 0 AR RO MA L MG CY J TA LL BL C ET 50 02 02 3 9. 28 CL 23 NELSON Ac T 11 -2 -2 00 IN 35 RR ti D2 10 5- 5- 0 IC 40 IE ve 99 20 20 S 1. 00 11 11 PH DA 25 1 AR MA D MG CY P (5 LL 0, C 00 0 UN IT ) DI 00 01 02 2 90 30 CL 22 ID Ac AZ 59 -0 -0 .0 IN 98 LL ti EP 15 4- 3- 00 IC 90 ER ve AM 62 20 20 01 11 11 PH CA 10 0 AR RO MA L MG CY J TA LL BL C ET DI 00 01 01 2 90 30 CL 22 ID Ac AZ 59 -0 -0 .0 IN 98 LL ti EP 15 4- 4- 00 IC 90 ER ve AM 62 20 20 01 11 11 PH CA 10 0 AR RO MA L MG CY J TA LL BL C ET MU 63 07 07 0 40 10 CL 21 CO Ac CI 82 -0 -0 .0 IN 94 OP ti NE 40 8- 8- 00 IC 09 ER ve X 05 20 20 DM 63 10 10 PH ISABELLA 2 AR HN ER MA G CY 60 0- LL 30 C MG TA BL ET MU 63 04 04 0 40 10 CL 21 CO Ac CI 82 -1 -1 .0 IN 45 OP ti NE 40 4- 4- 00 IC 60 ER ve X 05 20 20 DM 63 10 10 PH ISABELLA 2 AR HN ER MA G CY 60 0- LL 30 C MG TA BL ET MU 63 01 02 01 40 10 CL 20 CO Ac CI 82 -0 -2 .0 IN 81 OP ti NE 40 6- 6- 00 IC 76 ER ve X 05 20 20 DM 63 10 10 PH ISABELLA 2 AR HN ER MA G CY 60 0- 30 MG TA BL ET MU 63 01 01 00 40 10 CL 20 CO Ac CI 82 -0 -1 .0 IN 81 OP ti NE 40 6- 4- 00 IC 76 ER ve X 05 20 20 DM 63 10 10 PH ISABELLA 2 AR HN ER MA G CY 60 0- 30 MG TA BL ET 63 12 12 00 40 10 WA 88 CO Ac 82 -2 -3 .0 L- 15 OP ti 40 1- 1- 00 MA 21 ER ve 05 20 20 RT 7 64 09 09 ISABELLA 0 PH HN AR G MA CY #5 91 50 12 12 00 20 6 WA 70 WE Ac 11 -2 -3 .0 L- 51 HR ti 10 4- 1- 00 MA 69 MA ve 85 20 20 RT 6 N 10 09 09 II 1 PH I AR WI MA LL CY IA M #5 E 91 63 11 12 00 40 10 WA 88 CO Ac 82 -3 -1 .0 L- 15 OP ti 40 0- 7- 00 MA 10 ER ve 05 20 20 RT 3 64 09 09 ISABELLA 0 PH HN AR G MA CY #5 91 63 11 12 00 40 10 MT 88 CO Ac 82 -1 -0 .0 L- 15 OP ti 40 7- 3- 00 MA 04 ER ve 05 20 20 RT 2 64 09 09 ISABELLA 0 PH HN AR G MA CY #5 91 63 10 11 00 40 10 MT 88 CO Ac 82 -1 -0 .0 L- 14 OP ti 40 9- 5- 00 MA 87 ER ve 05 20 20 RT 7 64 09 09 ISABELLA 0 PH HN AR G MA CY #5 91 CE 00 08 10 01 30 30 WA 88 CO Ac TI 37 -1 -0 .0 L- 14 OP ti RI 83 7- 8- 00 MA 50 ER ve ZI 63 20 20 RT 6 NE 70 09 09 ISABELLA 1 PH HN HC AR G L MA 10 CY MG #5 91 TA BL ET 63 09 10 01 40 10 WA 88 CO Ac 82 -1 -0 .0 L- 14 OP ti 40 8- 8- 00 MA 70 ER ve 05 20 20 RT 6 64 09 09 ISABELLA 0 PH HN AR G MA CY #5 91 63 09 09 00 40 10 MT 88 CO Ac 82 -1 -2 .0 L- 14 OP ti 40 8- 4- 00 MA 70 ER ve 05 20 20 RT 6 64 09 09 ISABELLA 0 PH HN AR G MA CY #5 91 AL 37 09 09 00 28 28 WA 88 CO Ac IG 00 -0 -1 .0 L- 14 OP ti N 00 3- 0- 00 MA 60 ER ve 4 14 20 20 RT 1 MG 34 09 09 ISABELLA 3 PH HN CA AR G PS MA UL CY E #5 91 CE 00 08 08 00 30 30 WA 88 CO Ac TI 37 -1 -2 .0 L- 14 OP ti RI 83 7- 7- 00 MA 50 ER ve ZI 63 20 20 RT 6 NE 70 09 09 ISABELLA 1 PH HN HC AR G L MA 10 CY MG #5 91 TA BL ET 63 03 04 00 10 5 WA 88 CO Ac 82 -2 -0 .0 L- 13 OP ti 40 6- 9- 00 MA 77 ER ve 05 20 20 RT 2 64 09 09 ISABELLA 0 PH HN AR G MA CY #5 91 63 09 09 00 40 10 WA 88 CO Ac 82 -1 -2 .0 L- 12 OP ti 40 8- 6- 00 MA 83 ER ve 00 20 20 RT 0 84 08 08 ISABELLA 0 PH HN AR G MA CY #5 91 Vital Signs 06-05-2013 11:46 Name Value Interpretat Reference Comment ion Range Body 97.7 [degF] Temperature BP 65 mm[Hg] Diastolic BP Systolic 124 mm[Hg] Heart 66 /min Rate/Pulse O2% 97 % Respiratory 20 /min Rate 06-05-2013 11:29 Name Value Interpretat Reference Comment ion Range BP 76 mm[Hg] Diastolic BP Systolic 123 mm[Hg] Heart 69 /min Rate/Pulse Respiratory 20 /min Rate 06-05-2013 10:46 Name Value Interpretat Reference Comment ion Range O2% 98 % 01-03-2013 20:28 Name Value Interpretat Reference Comment ion Range Body 97.9 [degF] Temperature BP 73 mm[Hg] Diastolic BP Systolic 143 mm[Hg] Heart 64 /min Rate/Pulse O2% 98 % Respiratory 17 /min Rate 01-03-2013 20:26 Name Value Interpretat Reference Comment ion Range Body 97.9 [degF] Temperature 01-03-2013 16:49 Name Value Interpretat Reference Comment ion Range BP 61 mm[Hg] Diastolic BP Systolic 138 mm[Hg] Heart 73 /min Rate/Pulse O2% 98 % Respiratory 18 /min Rate 09-19-2012 00:11 Name Value Interpretat Reference Comment ion Range BP 79 mm[Hg] Diastolic BP Systolic 154 mm[Hg] Heart 56 /min Rate/Pulse O2% 97 % Respiratory 20 /min Rate 09-18-2012 22:19 Name Value Interpretat Reference Comment ion Range BP 82 mm[Hg] Diastolic BP Systolic 153 mm[Hg] Heart 61 /min Rate/Pulse Respiratory 20 /min Rate 09-18-2012 21:54 Name Value Interpretat Reference Comment ion Range O2% 97 % Results Labs Lab Lab Date Result Refere Interp Status Commen Order Detail nces retati t Range on COMPREHENSIVE METABOLIC PANEL (01-03-2013 16:45) Glucose 01-03- 124 74-106 complet 013 mg/dL ed Bld-mCn 16:45 c BUN 01-03-2 15 7-18 complet Bld-mCn 013 mg/dL ed c 16:45 Creat 01-03-2 0.8 0.6-1.0 complet SerPl-m 013 mg/dL ed Cnc 16:45 GFR 75 59- complet (ESTIMA 013 ML/MIN ed RAYA) 16:45 Sodium 2 142 136-145 complet SerPl-s 013 mmoL/L ed Cnc 16:45 Potassi 2 3.7 3.5-5.1 complet um 013 mmoL/L ed SerPl-s 16:45 Cnc Chlorid 107 98-107 complet e 013 mmoL/L ed SerPl-s 16:45 Cnc CO2 01-03-2 24 21.0-32 complet SerPl-s 013 mmoL/L .0 ed Cnc 16:45 Calcium 01-03-2 8.8 8.5-10. complet 013 mg/dL 1 ed SerPl-m 16:45 Cnc Prot 01-03-2 7.4 6.4-8.2 complet SerPl-m 013 gm/dL ed Cnc 16:45 Albumin 01-03-2 3.7 3.4-5.0 complet 013 gm/dL ed SerPl-m 16:45 Cnc Globuli 01-03-2 3.7 1.3-3.2 complet n 013 gm/dL ed Ser-mCn 16:45 c Albumin 01-03-2 1.0 UNK 1.1-1.8 complet /Glob 013 ed SerPl-m 16:45 Rto Bilirub 07-22-2 0.3 0.2-1.0 complet 013 mg/dL ed SerPl-m 16:45 Cnc AST 22-2 13 U/L 15-37 complet SerPl-c 013 ed Cnc 16:45 ALT 22-2 40 U/L 30-65 complet SerPl-c 013 ed Cnc 16:45 ALP 22-2 127 U/L 50-136 complet SerPl-c 013 ed Cnc 16:45 CBC with AUTO DIFF (01-03-2013 16:45) WBC # 07-22-2 7.5 4.8-10. complet Bld 013 K/MM3 8 ed Auto 16:45 RBC # 22-2 4.50 4.2-5.4 complet Bld 013 M/mm3 ed Auto 16:45 Hgb -22-2 13.1 12.2-16 complet Bld-mCn 013 g/dL .2 ed c 16:45 Hct Fr 01-03-2 39.6 % 37.0-47 complet Bld 013 .0 ed 16:45 MCV RBC 01-03-2 87.9 fl 82.2-97 complet 013 .8 ed 16:45 MCH RBC 22-2 29.2 pg 27-31.2 complet Qn 013 ed Auto 16:45 MEAN 22-2 33.2 31.8-35 complet CORPUSC 013 g/dl .4 ed ULAR 16:45 HGB CONC RDW RBC 22-2 14.0 % 11.5-17 complet Auto 013 .5 ed 16:45 Platele -22-2 220 142-424 complet t Bld 013 K/mm3 ed Ql 16:45 Manual MEAN 22-2 7.9 fl 7.4-10. complet PLATELE 013 4 ed T 16:45 VOLUME Granulo -22-2 58.9 % 37.0-80 complet cytes 013 .0 ed Fr Bld 16:45 Auto LYMPH % -22-2 33.9 % 10-50.0 complet 013 ed 16:45 Monocyt 07-22-2 4.4 % 1.7-9.3 complet es Fr 013 ed Bld 16:45 Auto Eosinop -22-2 2.2 % 0.1-12. complet hil Fr 013 0 ed Bld 16:45 Auto Basophi 07-22-2 0.6 % 0.1-2.0 complet ls Fr 013 ed Bld 16:45 Auto Granulo 22-2 4.4 1.8-7.8 complet cytes # 013 K/mm3 ed Bld 16:45 Auto Lymphoc 22-2 2.6 0.7-4.5 complet ytes Fr 013 K/mm3 ed Bld 16:45 Auto Monocyt -22-2 0.3 0.1-1.0 complet es # 013 K/mm3 ed Bld 16:45 Auto Eosinop -22-2 0.2 0.0-0.4 complet hil # 013 K/mm3 ed Bld 16:45 Auto Basophi 22-2 0.1 0-0.2 complet ls # 013 K/MM3 ed Bld 16:45 Auto COMPREHENSIVE METABOLIC PANEL (09-18-2012 21:50) Glucose 09-18- 104 74-106 complet 013 mg/dL ed Bld-mCn 21:50 c BUN 09-18-2 14 7-18 complet Bld-mCn 013 mg/dL ed c 21:50 Creat 09-18-2 0.7 0.6-1.0 complet SerPl-m 013 mg/dL ed Cnc 21:50 GFR 09-18-2 88 59- complet (ESTIMA 013 ML/MIN ed RAYA) 21:50 Sodium 09-18-2 140 136-145 complet SerPl-s 013 mmoL/L ed Cnc 21:50 Potassi 09-18-2 4.0 3.5-5.1 complet um 013 mmoL/L ed SerPl-s 21:50 Cnc Chlorid 09-18-2 102 98-107 complet e 013 mmoL/L ed SerPl-s 21:50 Cnc CO2 09-18-2 24 21.0-32 complet SerPl-s 013 mmoL/L .0 ed Cnc 21:50 Calcium 06-2 9.2 8.5-10. complet 013 mg/dL 1 ed SerPl-m 21:50 Cnc Prot 06-2 8.1 6.4-8.2 complet SerPl-m 013 gm/dL ed Cnc 21:50 Albumin 09-18-2 4.0 3.4-5.0 complet 013 gm/dL ed SerPl-m 21:50 Cnc Globuli 04-06-2 4.1 1.3-3.2 complet n 013 gm/dL ed Ser-mCn 21:50 c Albumin -06-2 1.0 UNK 1.1-1.8 complet /Glob 013 ed SerPl-m 21:50 Rto Bilirub 06-2 0.4 0.2-1.0 complet 013 mg/dL ed SerPl-m 21:50 Cnc AST 06-2 33 U/L 15-37 complet SerPl-c 013 ed Cnc 21:50 ALT -06-2 45 U/L 30-65 complet SerPl-c 013 ed Cnc 21:50 ALP -06-2 172 U/L 50-136 complet SerPl-c 013 ed Cnc 21:50 CBC with AUTO DIFF (09-18-2012 21:50) WBC # 04-06-2 9.2 4.8-10. complet Bld 013 K/MM3 8 ed Auto 21:50 RBC # 04-06-2 5.13 4.2-5.4 complet Bld 013 M/mm3 ed Auto 21:50 Hgb 04-06-2 15.3 12.2-16 complet Bld-mCn 013 g/dL .2 ed c 21:50 Hct Fr -06-2 45.6 % 37.0-47 complet Bld 013 .0 ed 21:50 MCV RBC 04-06-2 89.0 fl 82.2-97 complet 013 .8 ed 21:50 MCH RBC 04-06-2 29.8 pg 27-31.2 complet Qn 013 ed Auto 21:50 MEAN 04-06-2 33.5 31.8-35 complet CORPUSC 013 g/dl .4 ed ULAR 21:50 HGB CONC RDW RBC 04-06-2 14.5 % 11.5-17 complet Auto 013 .5 ed 21:50 Platele 04-06-2 227 142-424 complet t Bld 013 K/mm3 ed Ql 21:50 Manual MEAN 04-06-2 7.9 fl 7.4-10. complet PLATELE 013 4 ed T 21:50 VOLUME Granulo 04-06-2 43.5 % 37.0-80 complet cytes 013 .0 ed Fr Bld 21:50 Auto LYMPH % 04-06-2 47.4 % 10-50.0 complet 013 ed 21:50 Monocyt 04-06-2 5.4 % 1.7-9.3 complet es Fr 013 ed Bld 21:50 Auto Eosinop 04-06-2 2.9 % 0.1-12. complet hil Fr 013 0 ed Bld 21:50 Auto Basophi 04-06-2 0.8 % 0.1-2.0 complet ls Fr 013 ed Bld 21:50 Auto Granulo 04-06-2 4.0 1.8-7.8 complet cytes # 013 K/mm3 ed Bld 21:50 Auto Lymphoc 04-06-2 4.4 0.7-4.5 complet ytes Fr 013 K/mm3 ed Bld 21:50 Auto Monocyt 04-06-2 0.5 0.1-1.0 complet es # 013 K/mm3 ed Bld 21:50 Auto Eosinop 04-06-2 0.3 0.0-0.4 complet hil # 013 K/mm3 ed Bld 21:50 Auto Basophi 04-06-2 0.1 0-0.2 complet ls # 013 K/MM3 ed Bld 21:50 Auto Encounters Encounter Start End Date Code Location Performer Type Date [facility]PATIENT [facility]ALTH [facility] 7 7 [facility], 7 7 [facility]ALTH [facility], 7 7 [facility] HOME INPATIENT HEALTH HOME [facility] 7 7 [facility]ALTH [facility] INPATIENT [facility]ALTH [facility] 7 [facility] HOME INPATIENT HEALTH HOME [facility] 7 7 [facility] INPATIENT [facility] - [address] [facility] [address] [facility] 7 7 [facility], 7 7 [facility] - 7 7 [facility] 6 6 [facility] HOME INPATIENT [facility] - 6 6 [facility]IENT [facility] - 6 6 [facility] 6 6 [facility]EN [facility], 6 6 [facility], 6 6 [facility] HOME INPATIENT [facility] - 6 6 [facility], 6 6 [facility] INPATIENT [facility]ALTH HOME [facility], 6 6 [facility], 6 6 [facility]PATIENT [facility] HOME [facility], 6 6 [facility] INPATIENT [facility] HOME [facility], 6 6 [facility]PATIENT [facility] HOME [facility], 6 6 [facility]PATIENT [facility] HOME [facility], 6 6 [facility] - 6 6 [facility] 5 5 [facility] - 5 5 [facility] NURSES HEALTH, 5 5 REGISTRY INPATIENT & HOME HOME NURSES HEALTH, 5 5 REGISTRY INPATIENT & HOME HOME NURSES HEALTH, 5 5 REGISTRY INPATIENT & HOME [facility] - 5 5 [facility] HOME NURSES HEALTH, 5 5 REGISTRY INPATIENT & HOME HE HOME NURSES HEALTH, 5 5 REGISTRY INPATIENT & HOME [facility] - 5 5 [facility] - 5 5 [facility] - 5 5 [facility] HOME NURSES HEALTH, 5 5 [facility]IENT [facility], 4 4 REGISTRY INPATIENT & HOME HOSPITAL [facility] - 4 4 [facility] HOME NURSES HEALTH, 4 4 REGISTRY INPATIENT HOME [facility] NURSES HEALTH, 4 4 REGISTRY INPATIENT HOME [facility]URSES HE[facility], 4 4 REGISTRY INPATIENT HOME [facility]SES [facility], 4 4 REGISTRY INPATIENT HOME [facility]SES HEALTH, 4 4 REGISTRY INPATIENT HOME [facility] NURSES HEALTH, 4 4 REGISTRY INPATIENT & HOME HE HOME NURSES HEALTH, 4 4 REGISTRY INPATIENT & HOME HE HOME NURSES HEALTH, 4 4 REGISTRY INPATIENT & HOME HE Emergency AMMY Avilez MD (ER) 3 10:49 3 11:51 [facility] HOME NURSES HEALTH, 3 3 REGISTRY INPATIENT & HOME HE HOME NURSES HEALTH, 3 3 REGISTRY INPATIENT & HOME [facility]PITAL [facility] - 3 3 [facility] HOME NURSES HEALTH, 3 3 REGISTRY INPATIENT & HOME [facility]OSPITAL [facility] - 3 3 [facility] HOME NURSES HEALTH, 3 3 REGISTRY OUTPATIEN & HOME HE T HOME NURSES HEALTH, 3 3 REGISTRY OUTPATIEN & HOME HE T Emergency AMMY Hickman MD (ER) 3 16:40 3 21:04 [facility] NURSES HEALTH, 3 3 REGISTRY OUTPATIEN & HOME HE T HOME NURSES HEALTH, 3 3 REGISTRY OUTPATIEN & HOME HE T Emergency AMMY Hickman MD (ER) 3 21:47 3 00:32 [facility] - 3 3 [facility] - 3 [facility] N[facility], 2 2 REGISTRY OUTPATIEN & HOME [facility] - 2 2 [facility] NURSES HEALTH, 2 2 REGISTRY OUTPATIEN & HOME HE [facility] NURSES HEALTH, 2 2 REGISTRY OUTPATIEN & HOME HE [facility] A[facility]N - 2 2 [facility]PAT[facility]EN INC [facility] - 2 2 [facility] OUTPATIEN INC [facility] - 2 2 [facility] INC HOME NURSES HEALTH, 2 2 REGISTRY OUTPATIEN & HOME HE T [facility]SES [facility], 2 2 REGISTRY OUTPATIEN & HOME HE [facility] - 1 1 [facility] OUTPATIEN INC T [facility] NURSES HEALTH, 1 1 REGISTRY OUTPATIEN & HOME HE T HOME NURSES HE[facility], 1 1 REGISTRY OUTPATIEN & HOME HE T [facility] - 1 1 [facility] OUTPATIEN INC T [facility] NURSES HEALTH, 1 1 REGISTRY OUTPATIEN & HOME HE T [facility] - 1 1 [facility] OUTPATIEN INC [facility] - 1 1 [facility]PATIEN INC T [facility] NURSES HEALTH, 1 1 REGISTRY OUTPATIEN & HOME HE T [facility] - 1 1 [facility] OUTPATIEN INC T HOME NURSES HEALTH, 0 0 REGISTRY OUTPATIEN & HOME HE T [place] NURSES [facility], 0 0 REGISTRY OUTPATIEN & HOME HE T [facility] - 0 0 [facility] OUTPATIEN INC T HOME NURSES HEALTH, 0 0 REGISTRY OUTPATIEN & HOME HE T HOME NURSES HEALTH, 0 0 REGISTRY OUTPATIEN & HOME HE T [facility] - 0 0 [facility] OUTPATIEN INC [facility] - 0 0 [facility] OUTPATIEN INC T HOME NURSES HEALTH, 0 0 REGISTRY OUTPATIEN & HOME HE T HOME NURSES HEALTH, 0 0 REGISTRY OUTPATIEN & HOME HE T HOME NURSES HEALTH, 0 0 REGISTRY OUTPATIEN & HOME HE T HOME NURSES HEALTH, 0 0 REGISTRY OUTPATIEN & HOME T [facility] - 0 0 MEM [facility] OUTPATIEN INC T HOME NURSES HEALTH, 0 0 REGISTRY OUTPATIEN & HOME T [facility] - 0 0 [facility] OUTPATIEN INC [facility] - 0 0 [facility] OUTPATIEN INC [facility] NURSES HEALTH[facility] 0 0 REGISTRY OUTPATIEN & HOME T [facility] NURSES HEALTH, 0 0 REGISTRY OUTPATIEN & HOME T [facility] - 0 0 MEM [facility] OUTPATIEN INC [facility] - 0 0 [facility] OUTPATIEN INC [facility] NURSES HEALTH, 0 0 REGISTRY OUTPATIEN & HOME [facility] - 9 9 MEM [facility] OUTPATIEN INC [facility] - 9 9 [facility] OUTPATIEN INC [facility] - 9 9 [facility] OUTPATIEN INC [facility] NURSES HEALTH[facility] 9 9 REGISTRY OUTPATIEN & HOME T [facility] NURSES HEALTH[facility] 9 9 REGISTRY OUTPATIEN & HOME T [facility] NURSES HEALTH, 9 9 REGISTRY OUTPATIEN & HOME T [facility] NURSES HEALTH, 9 9 REGISTRY OUTPATIEN & HOME [facility] - 9 9 [facility] OUTPATIEN INC [facility] - 9 9 [facility] OUTPATIEN INC [facility] - 9 9 [facility] OUTPATIEN INC HOME NURSES HEALTH, 9 9 REGISTRY OUTPATIEN & HOME T [facility] - 9 9 [facility] OUTPATIEN INC [facility] - 9 9 [facility] OUTPATIEN INC HOME NURSES HEALTH, 9 9 REGISTRY OUTPATIEN & HOME T [facility] NURSES HEALTH, 9 9 REGISTRY OUTPATIEN & HOME T [facility] ACCESS 9 9 [facility] - 9 9 DENOMINATIONAL OUTPATIEN [facility] - 9 9 [facility] OUTPATIEN INC HOME NURSES HEALTH, 9 9 REGISTRY OUTPATIEN & HOME T [facility] NURSES HEALTH, 9 9 REGISTRY OUTPATIEN & HOME T [facility] - 9 9 [facility] OUTPATIEN INC [facility] - [facility] 9 [facility] - 9 9 [facility] INC [facility] NURSES HEALTH[facility] 9 9 REGISTRY OUTPATIEN & HOME T [facility] - 9 9 [facility] INC [facility] - 9 9 [facility] INC [facility] - 8 8 [facility] OUTPAT[facility]EN INC [facility] NURSES HEALTH[facility] 8 8 REGISTRY OUTPATIEN & HOME T [facility] - 8 8 [facility] OUTPATIEN INC [facility] NURSES HEALTH[facility] 8 8 REGISTRY OUTPATIEN & HOME T [facility] NURSES HEALTH[facility] 8 8 REGISTRY OUTPATIEN & HOME T [facility] OUT[facility]EN INC [facility] NURSES HEALTH[facility] 8 8 REGISTRY OUTPATIEN & HOME T [facility] - 8 8 DENOMINATIONAL OUTPATIEN [facility] - 8 8 [facility] OUTPATIEN INC [facility] NURSES HEALTH[facility] 8 8 REGISTRY OUTPATIEN & HOME [facility] - 8 8 [facility]EN [facility] - 8 8 [facility] INPATIENT INC HOME NURSES HEALTH[facility] 8 8 REGISTRY OUTPATIEN & HOME [facility] - 8 8 [facility] OUTPATIEN INC [facility] NURSES HEALTH[facility] 8 8 REGISTRY OUTPATIEN & HOME [facility] NURSES HEALTH[facility] 8 8 REGISTRY OUTPATIEN & [facility] - 8 8 [facility]EN [facility] - 8 8 [facility] - 8 8 [facility] - 8 8 [facility]EN [facility] NURSES HEALTH[facility] 8 8 REGISTRY OUTPATIEN & [facility] 8 [facility]
--- OUTSIDE RECORDS SUMMARY | 2017-05-03 20:48 | External Medical Summary Rpt | CCD ---
Author Author , MARY Organization MARY Address Unknown Phone Care Team Providers Care Development Professional Name Role Phone WAYNE DE, WAYNE Unavailable [...] Unavailable ALVIN ANT, ALVIN ANT Unavailable Unavailable [facility] Unavailable Unavailable SERVICE, [facility] Unavailable Unavailable SERVICE, [facility], Unavailable Unavailable [facility], Unavailable Unavailable [facility], Unavailable [facility]available [facility] [place] [facility], Unavailable Unavailable [facility] [place] [facility] Unavailable Unavailable HEALTH, [facility] LEOPOLDO Joaquin, LEOPOLDO Joaquin Unavailable Unavailable [...] JAMI HARRIES LORETO HARRIES Unavailable Unavailable LORETO [facility] Unavailable Unavailable INC, [facility] Unavailable Unavailable HOSPITAL P, [facility] P RAY, JESUS A, Unavailable Unavailable RAY, JESUS A [facility], Unavailable Unavailable [facility] Cathy Mcelroy 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, Unavailable Unavailable Cathy Mcelroy 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 KEEDY LORETO, KEEDY LORETO Unavailable Unavailable [facility] Un[facility], [facility] Unavailable Unavailable HAND [facility], [facility] Unavailable Unavailable [facility], [facility] RODRIGUEZ EHSAN, RODRIGUEZ Unavailable Unavailable EHSAN ADRIEL JR DWI, ADRIEL Unavailable Unavailable JR DWI ADRIEL, JOELLEN E, Unavailable Unavailable ADRIEL, JOELLEN E [facility] Unavailable Unavailable LABORATORY, [facility] [place] Un[facility] Un[facility] CENT, [facility] Unavailable Unavailable SERVICES, [facility] ALEXANDREA DUNHAM IGGY, Unavailable Unavailable ALEXANDREA DUNHAM IGGY MUSIC SIL[facility], MUSIC SILVIA Unavailable Unavailable [facility] Unavailable Unavailable [facility] Unavailable Unavailable [facility], [facility] KASSY DOBBINS, Unavailable Unavailable KASSY DOBBINS, Unavailable [...] STARLA, SAMSON, STARLA, Unavailable Unavailable SAMSON RECHTIN CLIENT ACCOUNT SPECIALIST, RECHTIN Unavailable Unavailable CLIENT ACCOUNT SPECIALIST PAULO, JIMENEZ S, PAULO, Unavailable Unavailable JIMENEZ S VIC PURVIS Unavailable Unavailable Emani HO, Unavailable Unavailable Emani HO JAMES L, Unavailable Unavailable SYED TAFOYA SCHUMER Unavailable Unavailable BAR BANDAR WARREN, BANDAR Unavailable Unavailable BRIANA SOKAN, ANAYELI O, Unavailable Unavailable SOKAN, ANAYELI O [facility] Un[facility] Unavailable EQUIPME, [facility] Unavailable Unavailable PHYSICIANS EKG, [facility], Unavailable Unavailable [facility], Unavailable Unavailable [facility] MARGARET STEVENS, Unavailable Unavailable MARGARET STEVENS [facility], Unavailable [facility]available [facility] Unavailable Unavailable [id number], [facility] NAYE PARKINSON, Unavailable Unavailable SEAU BALDWIN III, CHINO, Unavailable Unavailable TACOS CURRIE [...] INCONTINENC HEALTH E E119 TYPE 2 02-22-2017 [facility] DIABETES HOME MELLITUS MEDICAL WITHOUT EQUIPME COMPLICATIO NS [id number] OTH 02-22-2017 [facility] FRACTURE HOME UNS LOWER MEDICAL LEG INIT EQUIPME ENC CLOS FX R072 PRECORDIAL 12-25-2016 NEW PAIN [facility] PSC R5381 OTHER 12-25-2016 NEW MALAISE [facility] PSC I10 ESSENTIAL 12-09-[address] [facility] P N [id number] ATHEROSCLER 12-09-2016 [facility] OSIS [facility] P ANGINA PECTORIS R079 CHEST PAIN 12-09-2016 [facility] N200 CALCULUS OF 08-01-2016 [facility] N201 CALCULUS OF 07-29-2016 [facility] URETER [facility] P Z09 ENC F/U 07-29-2016 [facility] EXAM AFTR [facility] CMPL [facility] P THAN MALIG NEOPLSM [id number] PERSONAL 07-29-2016 [facility] P CALCULI I2510 ASHD [place] 06-29-2016 [facility] CORONARY [facility] ARTERY W/O INC ANGINA PECTORIS N132 HYDRONEPHRO 06-29-2016 [facility] SIS W/RENAL MEDICAL & URETRL IMAGING ASS CALCULOUS OBST R1032 LEFT LOWER 06-29-2016 [facility] QUADRANT [facility] PAIN IMAGING ASS Z720 TOBACCO USE 06-29-2016 [facility] J309 ALLERGIC 06-05-2016 [facility] RHINITIS PHYSICIANS UNSPECIFIED GROUP R05 COUGH 06-05-2016 [facility] J189 PNEUMONIA 05-12-2016 [facility] P R0602 SHORTNESS 05-12-2016 [facility] OF BREATH MEDICAL IMAGING ASS R0989 OTH SPEC SX 05-12-2016 [facility] & SIGNS MEDICAL INVLV THE IMAGING ASS CIRC & RESP SYS I509 HEART 05-01-2016 [facility] FAILURE [facility] HOS[facility] UNSPECIFIED INC H60073 UNSPECIFIED 05-01-2016 [facility] ASTHMA [facility] WITH ACUTE INC EXACERBATIO N J80 ACUTE 05-01-2016 [facility] RESPIRATORY AMBULANCE DISTRESS SERVICE SYNDROME R000 TACHYCARDIA 05-01-2016 [facility] UNSPECIFIED SERVICE R7989 OTHER SPEC 05-01-2016 [facility] ABNORMAL MEDICAL FINDINGS IMAGING ASS BLOOD CHEMISTRY J441 CHRONIC 04-24-2016 [facility] OBSTRUCTIVE MEM HOSP PULMONARY INC DZ W/EXACERBAT ION J42 UNSPECIFIED 02-27-2016 [facility] CHRONIC [facility] BRONCHITIS INC R911 SOLITARY 02-27-2016 [facility] PULMONARY MEDICAL NODULE IMAGING ASS E785 HYPERLIPIDE 01-31-2016 [facility] UNSPECIFIED CLINIC PSC 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 01-17-2016 [facility] BHV PHYSICIANS ENDOCRN GROUP GLAND & OTH PART NS E039 HYPOTHYROID 01-17-2016 [facility] ISM PHYSICIANS UNSPECIFIED GROUP H9110 PRESBYCUSIS 01-17-2016 [facility] UNSPECIFIED GROUP EAR H905 UNSPECIFIED 12-06-2015 [facility] SENSORINEUR GROUP AL HEARING LOSS N3020 OTHER 09-18-2015 [facility] CYSTITIS [facility] P WITHOUT HEMATURIA R350 FREQUENCY 09-18-2015 [facility] MICTURITION [facility] P R351 NOCTURIA 09-18-2015 [facility] P R102 PELVIC AND 08-14-2015 [facility] PERINEAL [facility] P 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 R001 BRADYCARDIA 08-03-2015 NEW [place] UNSPECIFIED CLINIC PSC R300 DYSURIA 08-03-2015 [facility] R9431 ABNORMAL 08-03-2015 NEW ELECTROCARD [place] IOGRAM CLINIC PSC W511ITK FOREIGN 08-03-2015 NEW BODY IN [facility] PARTS CLINIC PSC TRACT INITIAL ENC [id number] EROSION 08-03-2015 [facility] OTHER HOSPITAL IMPLANTED MESH ORGN/TISS INITIAL G4733 OBSTRUCTIVE 07-06-2015 [facility] SLEEP [facility] APNEA ADULT MEDICAL PEDIATRIC EQUIPME N210 CALCULUS IN 04-20-2015 NEW BLADDER [facility]IC PSC N211 CALCULUS IN 04-20-2015 [facility] PSC N9989 OTH 04-20-2015 [facility] POSTPROC HOSPITAL COMP DISORDERS GENITOURINA RY SYSTEM R319 HEMATURIA 04-20-2015 [facility] UNSPECIFIED HOSPITAL B999VTI FOREIGN 04-20-2015 NEW BODY IN [place] BLADDER CLINIC PSC INITIAL ENCOUNTER [id number] OTH MECH 04-20-2015 [facility] COMP OTH ASSOCIATES URINARY PSC DEVICES IMPL INIT ENC [id number] EXPOSURE OF 04-20-2015 [facility] IMPL HOSPITAL MESH INTO ORGN/TISS INITIAL Z7982 JAIL 04-20-2015 [facility] CURRENT USE [facility] Z83264 OTHER LONG 04-20-2015 [facility] CURRENT DRUG THERAPY G4736 SLEEP REL 04-07-2015 [facility] HYPOVENTIL[facility] NEUROSCIENC TION ES CENT CONDITIONS CLASS ELSW G4730 SLEEP APNEA 04-04-2015 [facility] UNSPECIFIED INC R1030 LOWER 04-04-2015 [facility] ABDOMINAL MEDICAL PAIN IMAGING ASS UNSPECIFIED 99301 OBSTRUCTIVE 03-06-2015 [facility] SLEEP HOME APNEA MEDICAL EQUIPME 91344 HYPOXEMIA 02-15-2015 [facility] NEUROSCIENC ES CENT 7802 SYNCOPE AND 02-05-2015 N[place]SES [place]SE [place] & [place] 33047 UNSPECIFIED 02-05-2015 NURSES URINARY REGISTRY & [place] E 85[address] DIAB W/O 01-01-2015 [facility] COMP TYPE MEDICAL II/UNS NOT STATED UNCNTRL 496 CHRONIC 12-20-2014 [facility] AIRWAY HOME OBSTRUCTION MEDICAL NEC EQUIPME 8248 UNSPECIFIED 12-20-2014 [facility] CLOSED HOME FRACTURE OF MEDICAL ANKLE EQUIPME 5920 CALCULUS OF 10-23-2014 [facility] 45976 ABDOMINAL 10-23-2014 [facility] PAIN, MEDICAL UNSPECIFIED IMAGING ASS SITE 46942 CHEST PAIN 10-16-2014 UNSPECIFIED [facility] EKG 486 PNEUMONIA, 08-22-2014 [facility] UNSPECIFIED INC 515 POSTINFLAMM 08-22-2014 [facility] ATORY MEDICAL PULMONARY IMAGING ASS FIBROSIS 77383 OTHER 08-22-2014 [facility] DISEASES OF MEDICAL LUNG NOT IMAGING ASS ELSEWHERE CLASSIFIED 7821 RASH AND 08-22-2014 [facility] OTHER MEM HOS[facility] NONSPECIFIC INC SKIN ERUPTION 7862 COUGH 08-22-2014 [facility] 7993 UNSPECIFIED 07-14-2014 NEW DEBILITY [facility] PSC 78874 ABDOMINAL 07-12-2014 [facility] PAIN, MEM HOSP EPIGASTRIC INC 4739 UNSPECIFIED 07-05-2014 [facility] SINUSITIS MEM HOS[facility] INC 8300 CLOSED 07-05-2014 [facility] DISLOCATION MEDICAL OF JAW IMAGING ASS 2459 UNSPECIFIED 04-18-2014 [facility] THYROIDITIS INC 95674 DYSPHAGIA 04-18-2014 [facility] UNSPECIFIED MEM HOSP INC 4149 UNSPECIFIED 12-15-2013 [facility] CHRONIC ISCHEMIC HEART DISEASE 93657 SWELLING OF 12-15-2013 [facility] [place] [facility] 31311 OTHER CHEST 12-15-2013 [facility] GIN PAIN 50757 GEN 05-30-2013 [facility] OSTEOARTHRO L REHAB SIS ASSOC PSC INVOLVING MULTIPLE SITES 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 11440 CORONARY 05-24-2013 SARTINI J ATHEROSCLER OSIS [place] CORONARY ARTERY 7242 LUMBAGO 04-20-2013 [facility] INC 13241 REFLUX 03-30-2013 ALVIN ANT ESOPHAGITIS 5952 OTHER 03-08-2013 WAYNE DE CHRONIC CYSTITIS 78938 OTHER 03-04-2013 [facility] DISEASES OF CINDY SPLEEN 4400 ATHEROSCLER 03-04-2013 [facility] OSIS OF CINDY AORTA 5718 OTHER 03-04-2013 [facility] CHRONIC CINDY NONALCOHOLI C LIVER DISEASE 5929 UNSPECIFIED 03-04-2013 [facility] URINARY MEM HOSP CALCULUS INC 04286 ABDOMINAL 03-04-2013 [facility] PAIN, LEFT MEM HOSP UPPER INC QUADRANT 4439 UNSPECIFIED 01-06-2013 FINE ALEXEI PERIPHERAL VASCULAR DISEASE 55701 OTHER 01-04-2013 JUNI GUADALUPE SPECIFIED CARDIAC DYSRHYTHMIA S 49449 ATHEROSLERO 01-04-2013 JUNI GUADALUPE NATV ART EXTREM [...] PECTORIS 4293 CARDIOMEGAL 01-03-2013 [facility] Y CINDY 03890 NONSPECIFIC 01-03-2013 JUNI GUADALUPE ABNORMAL ELECTROCARD IOGRAM V4581 POSTSURGICA 01-03-2013 [facility] L CINDY AORTOCORONA RY BYPASS STATUS 2449 UNSPECIFIED 11-29-2012 RODRIGUEZ EHSAN HYPOTHYROID ISM 57872 ACUT UT 09-21-2012 VIC Joaquin SUBENDOCARD IAL INFARCT EPIS CARE UNS 03523 ACUT UT 09-19-2012 MARITA DANGELO SUBENDOCARD IAL INFARCT INIT EPIS CARE 11922 OTHER 09-18-2012 ADRIEL DUNHAM CONVULSIONS DWI 6929 CONTACT 09-16-2012 MUSIC S[facility] DERMATITIS& OTHER ECZEMA DUE UNSPEC CAUSE 6953 ROSACEA 09-16-2012 MUSIC SILVIA 2448 OTHER 08-24-2012 [facility] SPECIFIED HOSPITAL ACQUIRED HYPOTHYROID ISM 78328 INCI HERNIA 08-24-2012 [facility] WITHOUT HOSPITAL MENTION OBSTRUCTION /GANGRENE V5866 LONG-TERM 08-24-2012 [facility] USE OF HOSPITAL [facility]IRIN V5869 LONG-TERM 08-24-2012 [facility] (CURRENT) HOSPITAL USE OF OTHER MEDICATIONS 5989 UNSPECIFIED 07-13-2012 [facility] P 4659 ACUTE URIS 05-13-2012 ALEXANDREA DUNHAM OF [facility] UNSPECIFIED SITE 485 BRONCHOPNEU 04-07-2012 BANDAR DYSON ORGANISM UNSPECIFIED 54183 COR 03-19-2012 [facility] UNSPEC TYPE VESSEL [place]/LOVELY T 5969 UNSPECIFIED 03-19-2012 VIC Joaquin DISORDER OF BLADDER 33552 OSTEOARTHRO 03-19-2012 [facility] WHETHER GEN/LOC UNSPEC SITE 74508 MIXED 03-19-2012 [facility] E URGE AND STRESS 81020 URINARY 03-19-2012 [facility]OSPITAL 6259 UNSPEC 03-16-2012 WAYNE DE SYMPTOM ASSOC W/FEMALE GENITAL ORGANS 27189 INCOMPLETE 03-16-2012 WAYNE ED BLADDER EMPTYING 82555 DISPLCMT 03-09-2012 [facility] LUMBAR [facility]ICAL INTERVERT IMAGING ASS DISC W/O MYELOPATHY 49693 ABDOMINAL 03-09-2012 [facility] PAIN RIGHT [facility] LOWER INC QUADRANT 15115 MIGRAINE 03-08-2012 JAMAL R UNS H W/INTRACTAB L W/O STATUS MIGRAINOSUS 25093 URETHRAL 03-02-2012 WAYNE DE SYNDROME NOS 7231 CERVICALGIA 12-21-2011 [facility] 68129 OTHER 12-21-2011 WEHRMAN III MALAISE AND IGGY FATIGUE 7840 HEADACHE 12-21-2011 WEHRMAN III IGGY E8889 UNSPECIFIED 12-21-2011 [facility] 3384 CHRONIC 12-11-2011 LEOPOLDO Benton PAIN SYNDROME 4280 CONGESTIVE 12-11-2011 LEOPOLDO Benton HEART FAILURE UNSPECIFIED 20303 MICROSCOPIC 12-11-2011 LEOPOLDO Benton HEMATURIA 99499 ABDOMINAL 12-11-2011 LEOPOLDO Benton PAIN, GENERALIZED 2768 HYPOPOTASSE 11-12-2011 LEOPOLDO Benton MARGARET 4292 UNSPECIFIED 11-12-2011 LEOPOLDO Benton CARDIOVASCU LAR DISEASE 73217 NAUSEA 10-31-2011 [facility] [place] [facility] 49711 ABDOMINAL 10-31-2011 [facility] PA[facility] RIGHT EMERGENCY UPPER SERVICES QUADRANT 7934 NONSPECIFIC 10-31-2011 SHIREEN STEFAN ABN FINDING RAD & OTH EXAM GI TRACT 92879 OTHER 10-31-2011 [facility] ILL-DEFINED EMERGENCY CONDITIONS SERVICES 20232 UNSPECIFIED 10-30-2011 RECHTIN CLIENT ACCOUNT SPECIALIST PYELONEPHRI TIS 5921 CALCULUS OF 09-25-2011 NEW URETER [facility] PSC 2689 UNSPECIFIED 09-23-2011 WAYNE DE VITAMIN D DEFICIENCY 7880 RENAL COLIC 09-21-2011 [facility] 591 HYDRONEPHRO 09-20-2011 [facility] MEDICAL IMAGING ASS 06400 OTHER 09-20-2011 [place] SPECIFIED MEDICAL DISORDER OF IMAGING ASS KIDNEY AND URETER 84946 ABDOMINAL 09-20-2011 LEOPOLDO Joaquin PAIN OTHER SPECIFIED SITE 7291 UNSPECIFIED 08-22-2011 [place] MYALGIA PAIN AND MYOSITIS 51278 UNSPECIFIED 08-15-2011 [place] TEAR FILM VISION INSUFFICIEN CY 5180 PULMONARY 08-09-2011 [facility] COLLAPSE [facility]ING ASS 5183 PULMONARY 08-09-2011 [facility] EOSINOPHILI MEDICAL A IMAGING ASS 36628 PAINFUL 08-09-2011 WEHRMAN III RESPIRATION IGGY 45260 PAIN IN 08-01-2011 [facility]INT DIABETIC PELVIC REGION AND THIGH 32365 MUSCLE 08-01-2011 [facility] WEAKNESS DIABETIC (GENERALIZE D) 66721 OTH COMPS 06-27-2011 NEW DUE OTH [facility] PSC ORTHOPED DEVICE IMPL&GFT 36666 OTH COMPS 06-27-2011 NEW [facility]UE [facility] PSC PROSTH DEVICE IMPL&GFT 44127 OTHER 06-27-2011 ANESTHESIA SPECIFIED ASSOC PSC COMPLICATIO NS NEC V7281 PRE-OPERATI 06-27-2011 NEW VE [facility] CARDIOVASCU CLINIC PSC LAR EXAMINATION 39782 NONUNION OF 06-24-2011 PODIATRIC FRACTURE FOOT & ANKLE SPECI 460 ACUTE 06-11-2011 LEOPOLDO J NASOPHARYNG ITIS 4720 CHRONIC 03-27-2011 [facility] RHINITIS [facility] ASS 4660 ACUTE 02-06-2011 [facility] BRONCHITIS ASSOCIATES 7904 NONSPEC 12-13-2010 [facility] ELEVATION MEDICAL OF LEVELS IMAGING ASS OF TRANSAMINAS E/LDH 7871 HEARTBURN 10-21-2010 [place] [facility] 6823 CELLULITIS 10-03-2010 [facility] AND ABSCESS EMERGENCY OF UPPER SERVICES ARM AND FOREARM 3569 UNSPEC 09-10-2010 [facility] OPATHIC PERIPHERAL NEUROPATHY 3560 HEREDITARY 09-03-2010 ELENITA LORETO PERIPHERAL NEUROPATHY 28419 PAIN IN 08-07-2010 [facility] JOINT, ORTHOPEDIC SHOULDER & HAND S REGION 72895 UNSPEC 07-30-2010 [facility] DISORDERS L REHAB BURSAE&TEND ASSOC [facility] ONS SHOULDER REGION 7265 ENTHESOPATH 07-30-2010 PROFESSIONA Y OF HIP L REHAB REGION ASSOC PSC 8409 SPRAIN&STRA 07-30-2010 PROFESSIONA IN UNSPEC L REHAB SITE ASSOC PSC SHOULDER&UP PER ARM V0260 UNSPECIFIED 07-16-2010 [facility] VIRAL MEM HOS[facility] HEPATITIS INC CARRIER 4610 ACUTE 06-27-2010 RODRIGUEZ EHSAN MAXILLARY SINUSITIS 4779 ALLERGIC 06-27-2010 RODRIGUEZ EHSAN RHINITIS CAUSE UNSPECIFIED 2662 OTHER 03-13-2010 [facility] B-COMPLEX ASSOCIATES DEFICIENCIE S 6278 OTHER SPEC 02-20-2010 [facility] MENOPAUSAL& MEDICAL POSTMENOPAU IMAGING ASS ALEC DISORDER V7612 OTHER 02-20-2010 [facility] SCREENING MEDICAL MAMMOGRAM IMAGING ASS V762 SCREENING 02-13-2010 PATHOLOGY & FOR CYTOLOGY MALIG[facility]NT LAB NEOPLASM OF THE CERVIX 68137 SHORTNESS 01-30-2010 [facility] P V4509 OTHER 01-30-2010 [facility] SPECIFIED MEM HOSP CARDIAC INC DEVICE IN SITU 7245 UNSPECIFIED 11-21-2009 [facility] BACKACHE [facility]OC[facility] 62791 ESOPHAGEAL 10-01-2009 [place] [facility] REFLUX SERV [facility] 08332 ATROPHIC 10-01-2009 PATHOLOGY & GASTRITIS CYTOLOGY WITHOUT LAB MENTION OF HEMORRHAGE 17707 OTHER SPEC 10-01-2009 [place] [facility] GASTRITIS SERV WITHOUT FOUNDATIO MENTION HEMORRHAGE V5863 LONG-TERM 10-01-2009 [facility] USE OF MEM HOSP ANTIPLATELE INC T/ANTITHROM BOTIC 7873 FLATULENCE 09-17-2009 [facility] ERUCTATION MEDICAL AND GAS IMAGING PAIN ASSOCIATES 5990 URINARY 08-07-2009 [facility] TRACT [facility] INFECTION SITE NOT SPECIFIED 03102 LATERAL 08-07-2009 [facility] EPICONDYLIT ASSOCIATES IS OF ELBOW 4553 EXTERNAL 06-25-2009 [facility] HEMORRHOIDS EMERGENCY WITHOUT SERVICES MENTION ASSOCIATES COMP 4555 EXTERNAL 06-25-2009 [facility] HEMORRHOIDS MEM HOSP WITH OTHER INC COMPLICATIO N 490 BRONCHITIS 06-11-2009 [facility] NOT ASSOCIATES SPECIFIED ACUTE OR CHRONIC 43294 UNSPECIFIED 05-03-2009 [facility] VIRAL ASSOCIATES INFECTION IN CCE & UNS SITE 03959 CONJUNCTIVA 03-01-2009 [facility] L ASSOCIATES HEMORRHAGE 29867 BLEPHARITIS 02-05-2009 [facility] , ASSOCIATES UNSPECIFIED 27710 [facility] 02-02-2009 NEW COMPLICATIO [facility] N DUE CLINIC PSC CORONARY BYPASS GRAFT 34592 OTHER 01-10-2009 [facility] SPECIFIED ASSOCIATES CIRCULATORY SYSTEM DISORDERS 63676 VOMITING 01-10-2009 [facility] ALONE ASSOCIATES 2440 POSTSURGICA 01-04-2009 [facility] CLINIC HYPOTHYROID LABORATORY ISM 99407 GLUCOCORTIC 01-02-2009 [facility] DEFICIENCY SERVICE 93214 OTHER ACUTE 01-02-2009 [facility] PAIN EMERGENCY SERVICES ASSOCIATES 7804 DIZZINESS 12-23-2008 [facility] PROF SERV 7919 OTHER 12-23-2008 [facility] EXAMINATION PROF SERV OF URINE 10530 UNSPEC 11-13-2008 [facility] AIDA W/O ASSOCIATES MENTION OBST/GANGRE N V4589 OTHER 10-27-2008 RADIOLOGY POSTSURGICA ASSOCIATES L STATUS PSC OTHER 37495 MIGRAINE 10-23-2008 [facility] UNSP W/O MUSLIM INTRACT W/O HOSP STATUS MIGRAINOSUS V443 COLOSTOMY 10-23-2008 [facility] STATUS MUSLIM HOSP 90924 OTH VENTRAL 10-16-2008 [facility] AIAD W/O MEM HOSP MENTION INC OBSTRUCTION /GANGREN 5789 UNSPECIFIED 10-12-2008 [facility] HEMORRHAGE SURGIAL OF ASSOCIATES GASTROINTES TINAL TRACT 99130 ENTHESOPATH 09-13-2008 [facility] Y OF ASSOCIATES UNSPECIFIED SITE 7295 PAIN IN 09-06-2008 [facility] SOFT [facility]OCIATES TISSUES OF LIMB 7212 THORACIC 07-25-2008 [facility], SPONDYLOSIS PHU WITHOUT MYELOPATHY 35383 OTH 07-24-2008 [facility] SPECIFIED MEM HOSP INFLAMMATOR INC Y POLYARTHROP ATHIES OTH 22335 SINOATRIAL 06-18-2008 [facility] AMBULANCE DYSFUNCTION SERVICE 90925 PRECORDIAL 06-17-2008 [employer] 5950 ACUTE 04-11-2008 [facility] CYSTITIS H UROLOGY PSC 6256 FEMALE 03-21-2008 [facility] STRESS H UROLOGY INCONTINENC PSC E 7262 OTHER 02-29-2008 PROF[facility] AFFECTIONS L REHAB OF SHOULDER ASSOC [facility] REGION NEC V4582 POSTSURG 02-11-2008 [facility] TRANSLUMINA L COR ANGPLSTY STS 56483 DIAB 01-31-2008 Rickey RAY/OPHTH JESUS A MANIFESTS TYPE II/UNS TYPE UNCNTRL 68263 BORDERLINE 01-31-2008 RODRIGO RAY OPEN JESUS A ANGLE BL FINDINGS LOW RSK 4785 OTHER 01-27-2008 PATHOLOGY & DISEASES OF CYTOLOGY VOCAL LAB CORDS 01704 DIAB 01-24-2008 [facility] W/NEURO MUSLIM MANIFESTS HOSP TYPE II/UNS NOT UNCNTRL 3572 POLYNEUROPA 01-24-2008 [facility] 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 V4579 OTHER 01-24-2008 [facility] ACQUIRED MUSLIM ABSENCE OF HOSP ORGAN 2761 HYPOSMOLALI 12-14-2007 [facility] A PROF SERV 46904 OBST 12-14-2007 [facility] CHRONIC [facility] BRONCHITIS [facility] W/ACUTE PROF SERV BRONCHITIS 10717 OTHER ACUTE 12-03-2007 [facility] [place] ANESTHESIA POSTOPERATI VE PAIN 02837 NONTRAUMATI 12-03-2007 [place] ORTHO C RUPTURE AND HAND OF TENDONS SURGEONS OF BICEPS PSC 413 ANGINA 11-22-2007 [place] [facility] [address]15 UNSPECIFIED 11-02-2007 [facility] UROLOGY OF URINE PSC 7820 DISTURBANCE 10-29-2007 [facility], OF SKIN ESAU SENSATION 58336 THYROTOX 10-06-2007 [facility] W/O [facility] GOITER/OTH INC CAUSE W/O CRISIS 2859 UNSPECIFIED 08-26-2007 [facility] 4011 ESSENTIAL 08-23-2007 [facility] PSC 4259 UNSPECIFIED 08-03-2007 [facility], CARDIOMYOPA PSC THY 4264 RIGHT 08-03-2007 [facility] PSC BLOCK 5119 UNSPECIFIED 08-03-2007 [facility] [place] PLEURAL RADIOLOGY EFFUSION V148 PERSONAL 07-06-2007 [facility] ALLERGY OTH SPEC MEDICINAL AGTS V462 DEPENDENCE 07-06-2007 [facility] OXYGEN 40156 GEN CONVUL 07-05-2007 STARLA, EPILEPSY SAMSON W/O MENTION INTRACT EPILEPSY 780.57 Sleep apnea [facility] [id number] Chronic [facility] R07.9 CHEST PAIN, UNSPECIFIED Allergies, Adverse Reactions, [...] 08 10 2 90 30 CL 24 UT Ac AZ 59 -0 -0 .0 IN 30 LL ti EP 15 1- 7- 00 IC 35 ER ve AM 62 20 20 01 11 11 PH CA 10 0 AR RO MA L MG CY J TA LL BL C ET DI 00 08 09 2 90 30 CL 24 UT Ac AZ 59 -0 -0 .0 IN [...] 03 08 2 90 30 CL 23 UT Ac AZ 59 -1 -0 .0 IN [...] 03 05 2 90 30 CL 23 UT Ac AZ 59 -1 -0 .0 IN [...] 03 04 2 90 30 CL 23 UT Ac AZ 59 -1 -1 .0 IN 46 LL ti EP 15 4- 2- 00 IC 35 ER ve AM 62 20 20 01 11 11 PH CA 10 0 AR RO MA L MG CY J TA LL BL C ET DI 00 01 03 2 90 30 CL 22 UT Ac AZ 59 -0 -0 .0 IN [...] 01 02 2 90 30 CL 22 UT Ac AZ 59 -0 -0 .0 IN 98 LL ti EP 15 4- 3- 00 IC 90 ER ve AM 62 20 20 01 11 11 PH CA 10 0 AR RO MA L MG CY J TA LL BL C ET DI 00 01 01 2 90 30 CL 22 UT Ac AZ 59 -0 -0 .0 IN [...] 91 63 11 12 00 40 10 SD 88 CO Ac 82 -1 -0 .0 L- 15 OP ti 40 7- 3- 00 MA 04 ER ve 05 20 20 RT 2 64 09 09 ISABELLA 0 PH HN AR G MA CY #5 91 63 10 11 00 40 10 SD 88 CO Ac 82 -1 -0 .0 [...] 91 63 09 09 00 40 10 SD 88 CO Ac 82 -1 -2 .0 [...] Date Code Location Per[facility] Type Date [email or web address] 7 [facility] 7 7 [facility]PATIENT [facility] HOME [facility], 7 7 [facility] 7 7 [email or web address] 7 [email or web address] 7 [facility] INPAT[facility] HOME [facility], 7 7 [facility]PAT[facility] - 7 7 [facility] - 7 7 [facility] - 7 7 [facility] 7 7 [facility] INPATIENT [facility]ALTH [facility] - 7 7 [facility] [address] [facility] AILYN - 6 6 [facility]IENT [facility] AILYN [facility] 6 6 [facility]EN [facility] AILYN - 6 6 [facility] HEALTH, 6 6 L[facility] HOME INPATIENT HEALTH HOME [facility], [address] [facility] - 6 6 [facility]EN [facility], 6 6 LTH HOME INPATIENT HEALTH HOME [facility] 6 6 [facility] HOME INPATIENT HEALTH HOME [facility], 6 6 L[facility] HOME INPATIENT HEALTH HOME [facility], 6 6 L[facility] HOME INPATIENT HEALTH HOME [facility], 6 6 L[facility] HOME INPATIENT HEALTH HOME [facility], 6 6 L[facility] HOME INPATIENT HEALTH HOME [facility], 6 6 LTH HOME INPATIENT [facility] - [address] [facility] - 5 5 [facility] AILYN - 5 5 [facility]IEN [facility] NURSES HEALTH, 5 5 REGISTRY INPATIENT [...] Avilez MD (ER) 3 10:49 3 11:51 [facility] HOME NURSES HEALTH, 3 3 REGISTRY INPATIENT [...] Hickman MD (ER) 3 16:40 3 21:04 [facility] NURSES HEALTH, 3 3 REGISTRY OUTPATIEN & HOME HE T HOME NURSES HEALTH, 3 3 REGISTRY OUTPATIEN & HOME HE T Emergency AMMY Hickman MD (ER) 3 21:47 3 00:32 [facility] AILYN - 3 3 [facility]EN [facility] - 3 [facility] N[facility], 2 2 REGISTRY OUTPATIEN & HOME [facility] AILYN - 2 2 [facility] OUTPATIEN INC [facility] NURSES HEALTH, 2 2 REGISTRY OUTPATIEN & HOME HE [facility] NURSES HEALTH, 2 2 REGISTRY OUTPATIEN & HOME HE [facility] AILYN - 2 2 [facility] OUTPATIEN INC [facility] AILYN - 2 2 [facility] OUTPATIEN INC [facility] AILYN - 2 2 [facility] OUTPATIEN INC HOME NURSES HEALTH, 2 2 REGISTRY OUTPATIEN & HOME HE T HOME NURSES HEALTH, 2 2 REGISTRY OUTPATIEN & HOME HE [facility] AILYN - 1 1 [facility] OUTPATIEN INC T HOME NURSES HEALTH, 1 1 REGISTRY OUTPATIEN & HOME HE T HOME NURSES HEALTH, 1 1 REGISTRY OUTPATIEN & HOME HE T [facility] AILYN - 1 1 [facility] OUTPATIEN INC T HOME NURSES HEALTH, 1 1 REGISTRY OUTPATIEN & HOME HE T [facility] AILYN - 1 1 [facility] OUTPATIEN INC [facility] AILYN - 1 1 [facility] OUTPATIEN INC T HOME NURSES HEALTH, 1 1 REGISTRY OUTPATIEN & HOME HE T [facility] AILYN - 1 1 [facility] OUTPATIEN INC T HOME NURSES HEALTH, 0 0 REGISTRY OUTPATIEN & HOME HE T [facility] NURSES HEALTH, 0 0 REGISTRY OUTPATIEN & HOME HE T [facility] AILYN - 0 0 [facility] OUTPATIEN INC T HOME NURSES HEALTH, 0 0 REGISTRY OUTPATIEN & HOME HE T HOME NURSES HEALTH, 0 0 REGISTRY OUTPATIEN & HOME HE T [facility] AILYN - 0 0 [facility] OUTPATIEN INC [facility] AILYN - 0 0 [facility] OUTPATIEN INC T HOME NURSES HEALTH, 0 0 REGISTRY OUTPATIEN & HOME HE T HOME NURSES HEALTH, 0 0 REGISTRY OUTPATIEN & HOME HE T HOME NURSES HEALTH, 0 0 REGISTRY OUTPATIEN & HOME HE T HOME NURSES HEALTH, 0 0 REGISTRY OUTPATIEN & HOME T [facility] - 0 0 [facility] OUTPATIEN INC T HOME NURSES HEALTH, 0 0 REGISTRY OUTPATIEN & HOME T [facility]N - 0 0 [facility] OUTPATIEN INC [facility] AILNY - 0 0 [facility] OUTPATIEN INC [facility] NURSES HEALTH, 0 0 REGISTRY OUTPATIEN & HOME T [facility] NURSES HEALTH, 0 0 REGISTRY OUTPATIEN & HOME T [facility]ILYN - 0 0 [facility] OUTPATIEN INC [facility] AILYN - 0 0 [facility] OUTPATIEN INC [facility] NURSES HEALTH, 0 0 REGISTRY OUTPATIEN & HOME [facility] AILYN - 9 9 [facility] OUTPATIEN INC [facility] AILYN - 9 9 [facility] OUTPATIEN INC [facility] AILYN - 9 9 [facility] OUTPATIEN INC [facility] NURSES HEALTH, 9 9 REGISTRY OUTPATIEN & HOME T [facility] NURSES HEALTH, 9 9 REGISTRY OUTPATIEN & HOME T [facility] NURSES HEALTH, 9 9 REGISTRY OUTPATIEN & HOME T [facility] NURSES HEALTH, 9 9 REGISTRY OUTPATIEN & HOME [facility] AILYN - 9 9 [facility] OUTPATIEN INC [facility] AILYN - 9 9 [facility] OUTPATIEN INC [facility] AILYN - 9 9 [facility] OUTPATIEN INC HOME NURSES HEALTH, 9 9 REGISTRY OUTPATIEN & HOME T [facility]ILYN - 9 9 [facility] OUTPATIEN INC [facility] AILYN - 9 9 [facility] OUTPATIEN INC HOME NURSES HEALTH, 9 9 REGISTRY OUTPATIEN & HOME T [facility] NURSES HEALTH, 9 9 REGISTRY OUTPATIEN & HOME T [facility] CRITICAL ST ACCESS 9 9 [facility] - 9 9 [place] OUT[facility]IEN [facility] AILYN - 9 9 [facility] OUTPATIEN INC HOME NURSES HEALTH, 9 9 REGISTRY OUTPATIEN & HOME T [facility] NURSES HEALTH, 9 9 REGISTRY OUTPATIEN & HOME T [facility] - 9 9 [facility] OUTPATIEN INC [facility] AILYN - 9 9 [facility] OUTPATIEN INC [facility] AILYN - 9 9 [facility] OUTPATIEN INC [facility] NURSES HEALTH, 9 9 REGISTRY OUTPATIEN & HOME T [facility]N - 9 9 [facility] OUTPATIEN INC [facility] AILYN - 9 9 [facility] OUTPATIEN INC [facility] AILYN - 8 8 [facility] OUTPATIEN INC [facility] NURSES HEALTH, 8 8 REGISTRY OUTPATIEN & HOME T [facility] - 8 8 [facility] OUTPATIEN INC [facility] NURSES HEALTH, 8 8 REGISTRY OUTPATIEN & HOME T [facility] NURSES HEALTH, 8 8 REGISTRY OUTPATIEN & HOME T [facility] - [facility] INC [facility] NURSES HEALTH, 8 8 REGISTRY OUTPATIEN & HOME T [facility] - 8 8 [place] OUT[facility]IEN [facility] AILYN - 8 8 [facility] OUTPATIEN INC [facility] NURSES HEALTH, 8 8 REGISTRY OUTPATIEN & HOME [facility] AILYN - 8 8 [facility] OUTPATIEN [facility] AILYN - 8 8 [facility] INPATIENT INC HOME NURSES HEALTH, 8 8 REGISTRY OUTPATIEN & HOME [facility] AILYN - 8 8 [facility] OUTPATIEN INC [facility] NURSES HEALTH, 8 8 REGISTRY OUTPATIEN & HOME [facility] NURSES HEALTH[facility] 8 8 REGISTRY [facility]PATIEN & [facility] - 8 8 [facility]PATIEN [facility] A[facility] - 8 8 [facility] A[facility] 8 8 [facility] A[facility] - 8 8 [facility]EN [facility] NURSES HEALTH[facility] 8 8 REGIST[facility] & [facility] - 8 [facility] 8 [facility]
--- OUTSIDE RECORDS SUMMARY | 2017-05-03 20:54 | External Medical Summary Rpt | CCD ---
Author Author , MARY Grant MARY Address Unknown Phone [email or web address] Care Team Providers Care Pharmacy Specialist Name Role Phone WAYNE DE, WAYNE Unavailable [...] Unavailable ALVIN ANT, ALVIN ANT Unavailable Unavailable [facility] Unavailable Unavailable SERVICE, [facility] Unavailable Unavailable SERVICE[facility] Un[facility], [facility], Unavailable Unavailable [facility] Unavailable Unavailable HEALTH, [facility] LEOPOLDO J, LEOPOLDO J Unavailable Unavailable LEOPOLDO Joaquin G, LEOPOLDO J Unavailable Unavailable G Emani MINA, LEOPOLDO, Unavailable Unavailable J G CROSSFIELD, DANNITA, Unavailable Unavailable CROSSFIELD, DANNITA XOCHITL CINDY, Unavailable Unavailable XOCHITL CINDY XOCHITL, PHU, Unavailable Unavailable [facility], PHU [facility], Unavailable Unavailable [facility] SHIREEN BLACK Unavailable Unavailable [facility], Unavailable Unavailable [facility] ESAU ARRIOLA T, Unavailable Unavailable ESAU ARRIOLA T [facility] Unavailable Unavailable [facility], [facility] STACY ALEXEI, STACY ALEXEI Unavailable Unavailable CARLOS VERA S, Unavailable Unavailable CHUYCARLOS HOLGUIN S [facility] Unavailable Unavailable [facility] CAPONE JAMI, CAPONE Unavailable Unavailable JAMI HARRIES LORETO, HARRIES Unavailable Unavailable LORETO [facility] Un[facility] Unavailable [facility], [facility] Un[facility] Un[facility] P, [facility] JESUS RAY A, Unavailable Unavailable JESUS RAY A [facility], Unavailable Unavailable [facility] KEEDY LORETO, KEEDY LORETO Unavailable Unavailable [facility] Unavailable Unavailable [facility], [facility] & Unavailable Unavailable HAND [facility], [facility] Unavailable Unavailable [facility], [facility] RODRIGUEZ EHSAN, RODRIGUEZ Unavailable Unavailable EHSAN ADRIEL JR DWI, ADRIEL Unavailable Unavailable JR DWI ADRIEL, JOELLEN E, Unavailable Unavailable ADRIEL, JOELLEN E [facility] Unavailable Unavailable LABORATORY, [facility] Unavailable Unavailable [facility] Unavailable Unavailable SERVICES, [facility] MCKEMIE JR IGGY, Unavailable Unavailable MCKEMIE JR IGGY MUSIC SILV[facility], MUSIC SILVIA Unavailable Unavailable [facility] Unavailable Unavailable [facility], [facility] Unavailable Unavailable [facility], [facility] KASSY DOBBINS, Unavailable Unavailable KASSY DOBBINS, Unavailable [...] STARLA, SAMSON, STARLA, Unavailable Unavailable SAMSON RECHTIN BARN BOSS, RECHTIN Unavailable Unavailable BARN BOSS PAULO, JIMENEZ S, PAULO, Unavailable Unavailable JIMENEZ S VIC PURVIS Unavailable Unavailable Emani HO, Unavailable Unavailable Emani HO JAMES L, Unavailable Unavailable SYED TAFOYA SCHUMER Unavailable Unavailable REYNALDO WARREN, BANDAR Unavailable Unavailable BRIANA SOKAN, ANAYELI O, Unavailable Unavailable SOKAN, ANAYELI O [facility] Unavailable Unavailable EQUIPME, [facility] Unavailable Unavailable PHYSICIANS EKG, [facility] EKG [facility], Unavailable Unavailable [facility], Unavailable Unavailable [facility] MARGARET STEVENS, Unavailable Unavailable MARGARET STEVENS [facility], Unavailable [facility] Unavailable Unavailable [id number], [facility] WECRISTOPHER III IGGY, Unavailable Unavailable ESAU BALDWIN III, CHINO, Unavailable [...] INCONTINENC HEALTH E E119 TYPE 2 02-22-2017 [facility] WITHOUT EQUIPME COMPLICATIO NS [id number] OTH 02-22-2017 [facility] FRACTURE HOME UNS LOWER MEDICAL LEG INIT EQUIPME ENC CLOS FX R072 PRECORDIAL 12-25-2016 NEW PAIN [facility] PSC R5381 OTHER 12-25-2016 NEW MALAISE [facility] PSC I10 ESSENTIAL 12-09-2016 [facility] P N [id number] ATHEROSCLER 12-09-2016 [facility] OSIS CABG [facility] P ANGINA PECTORIS R079 CHEST PAIN 12-09-2016 [facility] N200 CALCULUS OF 08-01-2016 [facility] N201 CALCULUS OF 07-29-2016 [facility] P Z09 ENC F/U 07-29-2016 [facility] EXAM AFTR [facility] CMPL TX [facility] P THAN MALIG NEOPLSM [id number] PERSONAL 07-29-2016 [facility] P CALCULI I2510 ASHD GULKANA 06-29-2016 [facility] CORONARY [facility] ARTERY W/O INC ANGINA PECTORIS N132 HYDRONEPHRO 06-29-2016 [facility] SIS W/RENAL MEDICAL & URETRL IMAGING ASS CALCULOUS OBST R1032 LEFT LOWER 06-29-2016 [facility] QU[facility]ANT [facility] PAIN IM[facility] ASS Z720 TOBACCO USE 06-29-2016 [facility] INC J309 ALLERGIC 06-05-2016 [facility] UNSPECIFIED GROUP R05 COUGH 06-05-2016 [facility] J189 PNEUMONIA 05-12-2016 [facility] P R0602 SHORTNESS 05-12-2016 [facility] R0989 OTH SPEC SX 05-12-2016 [place] [facility]NS [facility]ICAL INVLV THE IMAGING ASS CIRC & RESP SYS I509 HEART 05-01-2016 [facility] FAILURE [facility] UNSPECIFIED INC N51555 UNSPECIFIED 05-01-2016 [facility] ASTHMA [facility] WITH ACUTE INC EXACERBATIO N J80 ACUTE 05-01-2016 [facility] DISTRESS SERVICE SYNDROME R000 TACHYCARDIA 05-01-2016 [facility] UNSPECIFIED SERVICE R7989 OTHER SPEC 05-01-2016 [facility] ABNORMAL [facility]ICAL FINDINGS IMAGING ASS BLOOD CHEMISTRY J441 CHRONIC 04-24-2016 [facility] OBSTRUCTIVE [facility] PULMONARY INC DZ W/EXACERBAT ION J42 UNSPECIFIED 02-27-2016 [facility] CHRONIC [facility] BRONCHITIS INC R911 SOLITARY 02-27-2016 [facility] PULMONARY MEDICAL NODULE IMAGING ASS E785 HYPERLIPIDE 01-31-2016 [facility] UNSPECIFIED CLINIC PSC 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 01-17-2016 [facility] ENDOCRN GROUP GLAND & OTH PART NS E039 HYPOTHYROID 01-17-2016 [facility] ISM [facility]YS[facility] UNSPECIFIED GROUP H9110 PRESBYCUSIS 01-17-2016 [facility] UNSPECIFIED GROUP EAR H905 UNSPECIFIED 12-06-2015 [facility] SENSORINEUR GROUP AL HEARING LOSS N3020 OTHER 09-18-2015 [facility] CYSTITIS [facility] P WITHOUT HEMATURIA R350 FREQUENCY 09-18-2015 [facility] MICTURITION [facility] P R351 NOCTURIA 09-18-2015 [facility] P R102 PELVIC AND 08-14-2015 [facility] P I252 OLD 08-03-2015 [facility] INFARCTION R001 BRADYCARDIA 08-03-2015 [facility] [place] UNSPECIFIED CLINIC PSC R300 DYSURIA 08-03-2015 [facility] R9431 ABNORMAL 08-03-2015 NEW ELECTROCARD [facility] IOGRAM CLINIC PSC B473EXA FOREIGN 08-03-2015 [facility] TRACT INITIAL ENC [id number] EROSION 08-03-2015 [facility] IMPLANTED MESH ORGN/TISS INITIAL G4733 OBSTRUCTIVE 07-06-2015 [facility] APNEA ADULT MEDICAL PEDIATRIC EQUIPME N210 CALCULUS IN 04-20-2015 [facility] PSC N211 CALCULUS IN 04-20-2015 [facility] PSC N9989 OTH 04-20-2015 [facility] POSTPROC HOSPITAL COMP DISORDERS GENITOURINA RY SYSTEM R319 HEMATURIA 04-20-2015 [facility] UNSPECIFIED HOSPITAL T198WMP FOREIGN 04-20-2015 [facility] IN [facility]IN[facility] PSC INITIAL ENCOUNTER [id number] [facility] 04-20-2015 [facility] COMP OTH ASSOCIATES URINARY PSC DEVICES IMPL INIT ENC [id number] EXPOSURE OF 04-20-2015 [facility] IMPL HOSPITAL MESH INTO ORGN/TISS INITIAL Z7982 CARE HOME 04-20-2015 [facility] CURRENT USE [facility] V60074 OTHER LONG 04-20-2015 [facility] CURRENT DRUG THERAPY G4736 SLEEP REL 04-07-2015 [facility] HYPOVENTILA NEUROSCIENC TION ES CENT CONDITIONS CLASS ELSW G4730 SLEEP APNEA 04-04-2015 [facility] UNSPECIFIED INC R1030 LOWER 04-04-2015 [facility] ABDOMINAL [facility]ICAL PAIN IMAGING ASS UNSPECIFIED 40249 OBSTRUCTIVE 03-06-2015 [facility] APNEA MEDICAL EQUIPME 28039 HYPOXEMIA 02-15-2015 [facility] NEUROSCIENC ES CENT 7802 SYNCOPE AND 02-05-2015 NURSES COLLAPSE REGISTRY & HOME HE 62429 UNSPECIFIED 02-05-2015 NURSES URINARY REGISTRY & INCONTINENC [place] E 0[address] DIAB W/O 01-01-2015 [facility] COMP TYPE MEDICAL II/UNS NOT STATED UNCNTRL 496 CHRONIC 12-20-2014 [facility] HOME OBSTRUCTION MEDICAL NEC EQUIPME 8248 UNSPECIFIED 12-20-2014 [facility] CLOSED HOME FRACTURE OF MEDICAL ANKLE EQUIPME 5920 CALCULUS OF 10-23-2014 [facility] 34029 ABDOMINAL 10-23-2014 [facility], MEDICAL UNSPECIFIED IMAGING ASS SITE 24060 CHEST PAIN 10-16-2014 UNSPECIFIED [facility] EKG 486 PNEUMONIA, 08-22-2014 [facility] ORGANISM [facility] UNSPECIFIED INC 515 POSTINFLAMM 08-22-2014 [facility] ATORY [facility]ICAL PULMONARY IMAGING ASS FIBROSIS 25909 OTHER 08-22-2014 [place] DISEASES OF MEDICAL LUNG NOT IMAGING ASS ELSEWHERE CLASSIFIED 7821 RASH AND 08-22-2014 [facility] OTHER MEM [facility] NONSPECIFIC INC SKIN ERUPTION 7862 COUGH 08-22-2014 [facility] 7993 UNSPECIFIED 07-14-2014 NEW DEBILITY [facility] PSC 51289 ABDOMINAL 07-12-2014 [facility] PAIN, MEM HOS[facility] EPIGASTRIC INC 4739 UNSPECIFIED 07-05-2014 [facility] SINUSITIS [facility] INC 8300 CLOSED 07-05-2014 [place] [facility]AW [facility] 2459 UNSPECIFIED 04-18-2014 [facility] THYROIDITIS INC 32067 DYSPHAGIA 04-18-2014 [facility] UNSPECIFIED [facility] INC 4149 UNSPECIFIED 12-15-2013 ZACHARY JACOBS CHRONIC ISCHEMIC HEART DISEASE 66544 SWELLING OF 12-15-2013 [facility] 32915 OTHER CHEST 12-15-2013 [facility] GIN PAIN 91826 GEN 05-30-2013 [facility] OSTEOARTHRO L REHAB SIS ASSOC PSC INVOLVING MULTIPLE SITES 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 95368 CORONARY 05-24-2013 VIC J ATHEROSCLER OSIS GULKANA CORONARY ARTERY 7242 LUMBAGO 04-20-2013 [facility] INC 82362 REFLUX 03-30-2013 ALVIN ANT ESOPHAGITIS 5952 OTHER 03-08-2013 WAYNE DE CHRONIC CYSTITIS 17200 OTHER 03-04-2013 [facility] DISEASES OF CINDY SPLEEN 4400 ATHEROSCLER 03-04-2013 [facility] OSIS OF CINDY AORTA 5718 OTHER 03-04-2013 [facility] CHRONIC CINDY NONALCOHOLI C LIVER DISEASE 5929 UNSPECIFIED 03-04-2013 [facility] URINARY [facility] CALCULUS INC 38949 ABDOMINAL 03-04-2013 [facility] PAIN, LEFT [facility] UPPER INC QUADRANT 4439 UNSPECIFIED 01-06-2013 FINE ALEXEI PERIPHERAL VASCULAR DISEASE 27547 OTHER 01-04-2013 JUNI GUADALUPE SPECIFIED CARDIAC DYSRHYTHMIA S 94275 ATHEROSLERO 01-04-2013 JUNI GUADALUPE NATV ART EXTREM W/INTERMIT CLAUDICAT 5303 STRICTURE 01-04-2013 CAPONE JAMI AND STENOSIS OF ESOPHAGUS 2724 OTHER AND 01-03-2013 ADRIEL DUNHAM UNSPECIFIED DWI HYPERLIPIDE MARGARET 4019 UNSPECIFIED 01-03-2013 ADRIEL DUNHAM ESSENTIAL DWI HYPERTENSIO N 4111 INTERMEDIAT 01-03-2013 MARCE Lara CORONARY EMERGENCY SYNDROME SERVICES 412 OLD 01-03-2013 ADRIEL DUNHAM MYOCARDIAL DWI INFARCTION 4139 OTHER AND 01-03-2013 ADRIEL DUNHAM UNSPECIFIED DWI ANGINA PECTORIS 4293 CARDIOMEGAL 01-03-2013 X[facility] Y CINDY 21680 NONSPECIFIC 01-03-2013 JUNI GUADALUPE ABNORMAL ELECTROCARD IOGRAM V4581 POSTSURGICA 01-03-2013 XOCHITL L CINDY AORTOCORONA RY BYPASS STATUS 2449 UNSPECIFIED 11-29-2012 MICHAEL MOSER HYPOTHYROID ISM 37111 ACUT CA 09-21-2012 VIC Joaquin SUBENDOCARD IAL INFARCT EPIS CARE UNS 63384 ACUT CA 09-19-2012 MARITA DANGELO SUBENDOCARD IAL INFARCT INIT EPIS CARE 22122 OTHER 09-18-2012 ADRIEL JR CONVULSIONS DWI 6929 CONTACT 09-16-2012 MUSIC SILVIA DERMATITIS& OTHER ECZEMA DUE UNSPEC CAUSE 6953 ROSACEA 09-16-2012 [facility] SILVIA 2448 OTHER 08-24-2012 [facility] SPECIFIED HOSPITAL ACQUIRED HYPOTHYROID ISM 35123 INCI HERNIA 08-24-2012 [facility] WITHOUT HOSPITAL MENTION OBSTRUCTION /GANGRENE V5866 LONG-TERM 08-24-2012 [facility] USE OF [facility] V5869 LONG-TERM 08-24-2012 [facility] (CURRENT) HOSPITAL USE OF OTHER MEDICATIONS 5989 UNSPECIFIED 07-13-2012 [facility] P 4659 ACUTE URIS 05-13-2012 [facility]LEXANDREA DUNHAM [facility] UNSPECIFIED SITE 485 BRONCHOPNEU 04-07-2012 BANDAR DYSON ORGANISM UNSPECIFIED 79563 COR 03-19-2012 [facility] UNSPEC TYPE VESSEL GULKANA/LOVELY T 5969 UNSPECIFIED 03-19-2012 VIC Joaquin DISORDER OF BLADDER 12310 OSTEOARTHRO 03-19-2012 [facility] WHETHER GEN/LOC UNSPEC SITE 50180 MIXED 03-19-2012 [facility] E URGE AND STRESS 79426 URINARY 03-19-2012 [facility] 6259 UNSPEC 03-16-2012 WAYNE DE SYMPTOM ASSOC W/FEMALE GENITAL ORGANS 40221 INCOMPLETE 03-16-2012 WAYNE DE BLADDER EMPTYING 89432 DISPLCMT 03-09-2012 [facility] L[facility]BAR [facility] INTERVERT IMAGING ASS DISC W/O MYELOPATHY 71048 ABDOMINAL 03-09-2012 [facility] PAIN RIGHT [facility] LOWER INC QUADRANT 38833 MIGRAINE 03-08-2012 JAMAL R UNS H W/INTRACTAB L W/O STATUS MIGRAINOSUS 83121 URETHRAL 03-02-2012 WAYNE DE SYNDROME NOS 7231 CERVICALGIA 12-21-2011 [facility] 99378 OTHER 12-21-2011 WEHRMAN III MALAISE AND IGGY FATIGUE 7840 HEADACHE 12-21-2011 WEHRMAN III IGGY E8889 UNSPECIFIED 12-21-2011 [facility] 3384 CHRONIC 12-11-2011 LEOPOLDO Joaquin [facility] PAIN SYNDROME 4280 CONGESTIVE 12-11-2011 LEOPOLDO Joaquin [facility] HEART FAILURE UNSPECIFIED 39579 MICROSCOPIC 12-11-2011 LEOPOLDO Emani Benton HEMATURIA 01201 ABDOMINAL 12-11-2011 LEOPOLDO Joaquin [facility] PAIN, GENERALIZED 2768 HYPOPOTASSE 11-12-2011 LEOPOLDO Joaquin Se[facility]ity MARGARET 4292 UNSPECIFIED 11-12-2011 LEOPOLDO Benton CARDIOVASCU LAR DISEASE 67055 NAUSEA 10-31-2011 [facility] [place] [facility] 82890 ABDOMINAL 10-31-2011 [facility] RIGHT EMERGENCY UPPER SERVICES QUADRANT 7934 NONSPECIFIC 10-31-2011 SHIREEN STEFAN ABN FINDING RAD & OTH EXAM GI TRACT 72444 OTHER 10-31-2011 [facility] ILL-DEFINED EMERGENCY CONDITIONS SERVICES 96364 UNSPECIFIED 10-30-2011 RECHTIN BARN BOSS PYELONEPHRI TIS 5921 CALCULUS OF 09-25-2011 NEW URETER [facility] PSC 2689 UNSPECIFIED 09-23-2011 WAYNE DE VITAMIN D DEFICIENCY 7880 RENAL COLIC 09-21-2011 [facility] 591 HYDRONEPHRO 09-20-2011 [place] SIS [facility] 25090 OTHER 09-20-2011 [place] SPECIFIED MEDICAL DISORDER OF IMAGING ASS KIDNEY AND URETER 90075 ABDOMINAL 09-20-2011 LEOPOLDO Joaquin PAIN OTHER SPECIFIED SITE 7291 UNSPECIFIED 08-22-2011 [place] MYALGIA PAIN AND MYOSITIS 27958 UNSPECIFIED 08-15-2011 [place] [facility] FILM VISION INSUFFICIEN CY 5180 PULMONARY 08-09-2011 [facility] COLLAPSE [facility]ING ASS 5183 PULMONARY 08-09-2011 [place] EOSINOPHILI MEDICAL A IMAGING ASS 21609 PAINFUL 08-09-2011 WEHRMAN III RESPIRATION IGGY 24105 PAIN IN 08-01-2011 [facility] DIABETIC PELVIC REGION AND THIGH 48532 MUSCLE 08-01-2011 [facility] WEAKNESS DIABETIC (GENERALIZE D) 83679 OTH COMPS 06-27-2011 [facility] ORTHOPED DEVICE IMPL&GFT 81639 OTH COMPS 06-27-2011 [facility] PROSTH DEVICE IMPL&GFT 36483 OTHER 06-27-2011 AN[facility] SPECIFIED ASSOC PSC COMPLICATIO NS NEC V7281 PRE-OPERATI 06-27-2011 [facility] CARDIOVASCU CLINIC PSC LAR EXAMINATION 81032 NONUNION OF 06-24-2011 PODIATRIC FRACTURE FOOT & ANKLE SPECI 460 ACUTE 06-11-2011 LEOPOLDO Joaquin NASOPHARYNG ITIS 4720 CHRONIC 03-27-2011 [place] [facility] 4660 ACUTE 02-06-2011 [facility] BRONCHITIS ASSOCIATES 7904 NONSPEC 12-13-2010 [place] ELEVATION MEDICAL OF [place]HOT[place] IMAGING ASS OF TRANSAMINAS E/LDH 7871 HEARTBURN 10-21-2010 [place] [facility] 6823 CELLULITIS 10-03-2010 [facility] AND ABSCESS EMERGENCY OF UPPER SERVICES ARM AND FOREARM 3569 UNSPEC 09-10-2010 [facility] OPATHIC PERIPHERAL NEUROPATHY 3560 HEREDITARY 09-03-2010 ELENITA LORETO PERIPHERAL NEUROPATHY 93106 PAIN IN 08-07-2010 [place] JOINT, ORTHOPEDIC SHOULDER & HAND S REGION 90199 UNSPEC 07-30-2010 [facility] DISORDERS L REHAB BURSAE&TEND ASSOC PSC ONS SHOULDER REGION 7265 ENTHESOPATH 07-30-2010 [facility] Y OF HIP L REHAB REGION ASSOC PSC 8409 SPRAIN&STRA 07-30-2010 PROFESSIONA IN UNSPEC L REHAB SITE ASSOC PSC SHOULDER&UP PER ARM V0260 UNSPECIFIED 07-16-2010 [facility] VIRAL [facility] HEPATITIS INC CARRIER 4610 ACUTE 06-27-2010 RODRIGUEZ EHSAN MAXILLARY SINUSITIS 4779 ALLERGIC 06-27-2010 RODRIGUEZ EHSAN RHINITIS CAUSE UNSPECIFIED 2662 OTHER 03-13-2010 [facility] B-COMPLEX ASSOCIATES DEFICIENCIE S 6278 OTHER SPEC 02-20-2010 [place] MENOPAUSAL& MEDICAL POSTMENOPAU IMAGING ASS ALEC DISORDER V7612 OTHER 02-20-2010 [place] SCREENING MEDICAL MAMMOGRAM IMAGING ASS V762 SCREENING 02-13-2010 PATHOLOGY & FOR CYTOLOGY MALIGNANT LAB NEOPLASM OF THE CERVIX 39130 SHORTNESS 01-30-2010 [facility] P V4509 OTHER 01-30-2010 [facility] SPECIFIED MEM HOSP CARDIAC INC DEVICE IN SITU 7245 UNSPECIFIED 11-21-2009 [facility] BACKACHE ASSOCIATES 36574 ESOPHAGEAL 10-01-2009 [place] [facility] REFLUX SERV F[facility] 22449 ATROPHIC 10-01-2009 PATHOLOGY & GASTRITIS CYTOLOGY WITHOUT LAB MENTION OF HEMORRHAGE 00643 OTHER SPEC 10-01-2009 [place] [facility] GASTRITIS SERV WITHOUT FOUNDATIO MENTION HEMORRHAGE V5863 LONG-TERM 10-01-2009 [facility] USE OF MEM HOSP ANTIPLATELE INC T/ANTITHROM BOTIC 7873 FLATULENCE 09-17-2009 [place] ERUCTATION MEDICAL AND GAS IMAGING PAIN ASSOCIATES 5990 URINARY 08-07-2009 [facility] TRACT [facility] INFECTION SITE NOT SPECIFIED 96550 LATERAL 08-07-2009 [facility] EPICONDYLIT ASSOCIATES IS OF ELBOW 4553 EXTERNAL 06-25-2009 [place] HEMORRHOIDS EMERGENCY WITHOUT SERVICES MENTION ASSOCIATES COMP 4555 EXTERNAL 06-25-2009 [facility] HEMORRHOIDS MEM HOS[facility] WITH OTHER INC COMPLICATIO N 490 BRONCHITIS 06-11-2009 [facility] NOT ASSOCIATES SPECIFIED ACUTE OR CHRONIC 28355 UNSPECIFIED 05-03-2009 [facility] VIRAL [facility]OCIATES INFECTION IN CCE & UNS SITE 25877 CONJUNCTIVA 03-01-2009 [facility] L [facility] HEMORRHAGE 93428 BLEPHARITIS 02-05-2009 [facility] , ASSOCIATES UNSPECIFIED 86612 [facility] 02-02-2009 NEW COMPLICATIO [facility] N DUE CLINIC [facility] CORONARY BYPASS GRAFT 73755 OTHER 01-10-2009 [facility] SPECIFIED ASSOCIATES CIRCULATORY SYSTEM DISORDERS 57162 VOMITING 01-10-2009 [facility] ALONE [facility]IATES 2440 POSTSURGICA 01-04-2009 [facility] HYPOTHYROID LABORATORY ISM 35062 GLUCOCORTIC 01-02-2009 [facility] DEFICIENC[facility]ICE 96989 OTHER ACUTE 01-02-2009 [place] PAIN EMERGENCY SERVICES ASSOCIATES 7804 DIZZINESS 12-23-[address] [facility] PROF SERV 7919 OTHER 12-23-2008 [facility] EXAMINATION PROF SERV OF URINE 41647 UNSPEC 11-13-2008 [facility]IAL AIDA W/O ASSOCIATES MENTION OBST/GANGRE N V4589 OTHER 10-27-2008 RADIOLOGY POSTSURGICA ASSOCIATES L STATUS PSC OTHER 11932 MIGRAINE 10-23-2008 [facility] UNSP W/O [facility] INTRACT W/O HOSP STATUS MIGRAINOSUS V443 COLOSTOMY 10-23-2008 [facility] STATUS [facility] HOSP 08241 OTH VENTRAL 10-16-2008 [facility] AIDA W/O MEM HOSP MENTION INC OBSTRUCTION /GANGREN 5789 UNSPECIFIED 10-12-2008 [facility] HEMORRHAGE SURGIAL OF ASSOCIATES GASTROINTES TINAL TRACT 79684 ENTHESOPATH 09-13-2008 [facility] Y OF ASSOCIATES UNSPECIFIED SITE 7295 PAIN IN 09-06-2008 [facility] SOFT [facility]OCIATES TISSUES OF LIMB 7212 THORACIC 07-25-2008 [facility], SPONDYLOSIS PHU WITHOUT MYELOPATHY 10172 OTH 07-24-2008 [facility] SPECIFIED MEM HOSP INFLAMMATOR INC Y POLYARTHROP ATHIES OTH 60035 SINOATRIAL 06-18-2008 [facility] AMBULANCE DYSFUNCTION SERVICE 45156 PRECORDIAL 06-17-2008 V[facility] 5950 ACUTE 04-11-2008 [facility] CYSTITIS H UROLOGY PSC 6256 FEMALE 03-21-2008 [facility] STRESS H UROLOGY INCONTINENC PSC E 7262 OTHER 02-29-2008 [facility] AFFECTIONS L REHAB OF SHOULDER ASSOC PSC REGION NEC V4582 POSTSURG 02-11-2008 [facility] TRANSLUMINA L COR ANGPLSTY STS 23785 DIAB 01-31-2008 [facility], W/OPHTH JESUS A MANIFESTS TYPE II/UNS TYPE UNCNTRL 92774 BORDERLINE 01-31-2008 [facility] GLAUC OPEN JESUS A ANGLE BL FINDINGS LOW RSK 4785 OTHER 01-27-2008 PATHOLOGY & DISEASES OF CYTOLOGY VOCAL LAB CORDS 37783 DIAB 01-24-2008 [facility] W/NEURO [facility]IF[facility]OSP TYPE II/UNS NOT UNCNTRL 3572 POLYNEUROPA 01-24-2008 [facility] THY IN [facility] DIABETES HOSP V4579 OTHER 01-24-2008 [facility] ACQUIRED [facility] ABSENCE OF HOSP ORGAN 2761 HYPOSMOLALI 12-14-2007 [facility]OR [facility] A PROF SERV 03705 OBST 12-14-2007 [facility] W/ACUTE PROF SERV BRONCHITIS 18338 OTHER ACUTE 12-03-2007 [facility] [place] ANESTHESIA POSTOPERATI VE PAIN 23061 NONTRAUMATI 12-03-2007 [place] [facility]TH[facility] C RUPTURE AND HAND OF TENDONS [facility] PSC 413 ANGINA 11-22-[address] [facility] [address] UNSPECIFIED 11-02-2007 [facility] UROLOGY OF URINE PSC 7820 DISTURBANCE 10-29-2007 [facility], OF SKIN ESAU SENSATION 54310 THYROTOX 10-06-2007 [facility] W/O MEM HOSP GOITER/OTH INC CAUSE W/O CRISIS 2859 UNSPECIFIED 08-26-2007 [facility] 4011 ESSENTIAL 08-23-2007 [facility]ENSIO [facility], [facility] PSC 4259 UNSPECIFIED 08-03-2007 [facility], CARDIOMYOPA PSC THY 4264 RIGHT 08-03-2007 [facility] PSC BLOCK 5119 UNSPECIFIED 08-03-2007 [facility] [place] PLEURAL RADIOLOGY EFFUSION V148 PERSONAL 07-06-2007 [facility] ALLERGY OTH SPEC MEDICINAL AGTS V462 DEPENDENCE 07-06-2007 [facility] ON MACHINE [facility] 53385 GEN CONVUL 07-05-2007 STARLA, EPILEPSY SAMSON W/O MENTION INTRACT EPILEPSY Medications Na ND Rx Da Fi Fi [...] 5- 1. 5 MG TA B 00 05 06 30 30 00 CL Ac PI 90 -2 -3 .0 00 IN ti RI 42 5- 0- 00 00 IC ve N 01 [...] CY MG TA BL ET 00 12 30 30 00 CL Ac PI 90 -0 -0 .0 00 IN ti RI 42 1- 9- 00 00 IC ve N 01 20 20 39 EC 36 16 17 01 PH 0 45 AR 32 MA 5 CY MG TA BL ET DI 00 08 10 2 90 30 CL 24 CA Ac AZ 59 -0 -0 .0 IN 30 LL ti EP 15 1- 7- 00 IC 35 ER ve AM 62 20 20 01 11 11 PH CA 10 0 AR RO MA L MG CY J TA LL BL C ET DI 00 08 09 2 90 30 CL 24 CA Ac AZ 59 -0 -0 .0 IN [...] 03 08 2 90 30 CL 23 CA Ac AZ 59 -1 -0 .0 IN 46 LL ti EP 15 4- 1- 00 IC 35 ER ve AM 62 20 20 01 11 11 PH CA 10 0 AR RO MA L MG CY J TA BL C ET 50 02 05 3 [...] 03 05 2 90 30 CL 23 CA Ac AZ 59 -1 -0 .0 IN 46 LL ti EP 15 4- 9- 00 IC 35 ER ve AM 62 20 20 01 11 11 PH CA 10 0 AR RO MA L MG CY J TA BL C ET 50 02 04 3 [...] 03 04 2 90 30 CL 23 CA Ac AZ 59 -1 -1 .0 IN 46 LL ti EP 15 4- 2- 00 IC 35 ER ve AM 62 20 20 01 11 11 PH CA 10 0 AR RO MA L MG CY J TA BL C ET DI 00 01 03 2 90 30 CL 22 CA Ac AZ 59 -0 -0 .0 IN 98 LL ti EP 15 4- 3- 00 IC 90 ER ve AM 62 20 20 01 11 11 PH CA 10 0 AR RO MA L MG CY J TA BL C ET 50 02 02 3 [...] 01 02 2 90 30 CL 22 CA Ac AZ 59 -0 -0 .0 IN 98 LL ti EP 15 4- 3- 00 IC 90 ER ve AM 62 20 20 01 11 11 PH CA 10 0 AR RO MA L MG CY J TA BL C ET DI 00 01 01 2 90 30 CL 22 CA Ac AZ 59 -0 -0 .0 IN [...] 60 0- 30 MG TA BL ET 50 12 12 00 20 6 WA 70 WE Ac 11 -2 -3 .0 L- 51 HR ti 10 4- 1- 00 MA 69 MA ve 85 20 20 RT 6 N 10 09 09 II 1 PH I AR [place] MA LL CY IA M #5 E 91 63 12 12 00 40 10 WA [...] 91 63 10 11 00 40 10 [place] 88 CO Ac 82 -1 -0 .0 L- 14 OP ti 40 9- 5- 00 MA 87 ER ve 05 20 20 RT 7 64 09 09 ISABELLA 0 PH HN AR G MA CY #5 91 63 09 10 01 40 10 WA [...] #5 91 TA BL ET 63 09 09 00 40 10 [place] 88 CO Ac 82 -1 -2 .0 L- 14 OP ti 40 8- 4- 00 MA 70 ER ve 05 20 20 RT 6 64 09 09 ISABELLA 0 PH HN AR G MA CY #5 91 AL 37 09 09 00 28 28 SD 88 CO Ac IG 00 -0 -1 [...] ET 63 03 04 00 10 5 SD 88 CO Ac 82 -2 -0 .0 [...] HN AR G MA CY #5 91 Encounters Encounter Start End Date Code Location Performer Type Date [facility], 7 7 LT [facility] 7 7 LT HOME [facility], 7 7 LT HOME [facility]PAT[facility], 7 7 LT HOME [facility]PAT[facility]ALTH [facility], 7 7 LT HOME [facility]PATIENT HEALTH [facility] 7 7 LT HOME [facility], 7 7 LT [facility] - 7 7 [facility] - 7 7 [facility] 7 7 [facility] HOME INPATIENT HEALTH [facility] - 7 7 [facility] 6 6 [facility] HOME INPATIENT [facility] - 6 6 [facility] - 6 6 [facility] - 6 6 [facility], 6 6 LT HOME INPATIENT HEALTH [facility], 6 6 LT [facility] 6 6 [facility], 6 6 LT HOME INPATIENT HEALTH [facility], 6 6 LT HOME INPATIENT HEALTH [facility] 6 6 LT HOME INPATIENT HEALTH HOME [facility] 6 6 LT HOME INPATIENT HEALTH [facility], 6 6 [facility], 6 6 [facility] 6 6 [facility] HOME INPATIENT [facility] - 6 6 [facility] - 5 5 [facility] - 5 5 [facility], 5 5 REGISTRY INPATIENT & HOME HE [facility], 5 5 REGISTRY INPATIENT & HOME HE [facility], 5 5 [facility] - 5 5 [facility] NURSES HEALTH, 5 5 REGISTRY INPATIENT & HOME HE HOME NURSES HEALTH, 5 5 [facility] - 5 5 [facility] INC [facility] - 5 5 [facility] - 5 5 [facility] NURSES HEALTH, 5 5 REGISTRY INPATIENT HOME [facility] N[facility]SES [facility], 4 4 [facility]ISTRY [facility] - 4 4 [facility]SES HE[facility], 4 4 REGISTRY INPATIENT [...] 3 3 REGISTRY INPATIENT & HOME [facility] - 3 3 [facility] T [facility] NURSES HEALTH, 3 3 REGISTRY INPATIENT & HOME [facility] - 3 3 [facility] INC T HOME NURSES HEALTH, 3 3 REGISTRY OUTPATIEN & HOME HE T HOME NURSES HEALTH, 3 3 REGISTRY OUTPATIEN & HOME HE T [facility] HE[facility], 3 3 REGISTRY OUTPATIEN & HOME HE T HOME [facility]SES HEALTH, 3 3 REGISTRY OUTPATIEN & HOME HE T [facility] - 3 3 [facility] INC [facility] - 3 3 HOSPITAL OUTPATIEN T HOME NURSES HEALTH, 2 2 REGISTRY OUTPATIEN & HOME HE T [facility] - 2 2 [facility] INC T HOME NURSES HEALTH, 2 2 REGISTRY OUTPATIEN & HOME HE T [facility] T HOME NURSES HEALTH, 2 2 REGISTRY OUTPATIEN & HOME HE T [facility] - 2 2 [facility] INC [facility] - 2 2 [facility] - 2 2 [facility]IEN INC T HOME NURSES HEALTH, 2 2 REGISTRY OUTPATIEN & HOME HE T HOME NURSES HEALTH, 2 2 REGISTRY OUTPATIEN & HOME HE T [facility] - 1 1 [facility] T HOME NURSES HEALTH, 1 1 REGISTRY OUTPATIEN & HOME HE T HOME NURSES HEALTH, 1 1 REGISTRY OUTPATIEN & HOME HE T [facility] - 1 1 [facility] T HOME NURSES HEALTH, 1 1 REGISTRY OUTPATIEN & HOME HE T [facility] - 1 1 [facility] T [facility] - 1 1 [facility] INC T HOME NURSES HEALTH, 1 1 REGISTRY OUTPATIEN & HOME HE T [facility] - 1 1 [facility] INC T HOME NURSES HEALTH, 0 0 REGISTRY OUTPATIEN & HOME HE T HOME NURSES HEALTH, 0 0 REGISTRY OUTPATIEN & HOME HE T [facility] - 0 0 [facility] INC T HOME NURSES HEALTH, 0 0 REGISTRY OUTPATIEN & HOME HE T HOME NURSES HEALTH, 0 0 REGISTRY OUTPATIEN & HOME HE T [facility] - 0 0 [facility] T [facility] - 0 0 [facility] INC T HOME NURSES HEALTH, 0 0 REGISTRY OUTPATIEN & HOME HE T HOME NURSES HEALTH, 0 0 REGISTRY OUTPATIEN & HOME HE T HOME NURSES HEALTH, 0 0 REGISTRY OUTPATIEN & HOME [facility] HOME NURSES HEALTH, 0 0 REGISTRY OUTPATIEN & HOME T [facility] - 0 0 [facility] INC HOME NURSES HEALTH, 0 0 REGISTRY OUTPATIEN & HOME T [facility] - 0 0 [facility] INC [facility] - 0 0 [facility] INC HOME NURSES HEALTH, 0 0 REGISTRY OUTPATIEN & HOME T [facility] NURSES HEALTH, 0 0 REGISTRY OUTPATIEN & HOME [facility] - 0 0 [facility] - 0 0 [facility] INC [facility] NURSES HEALTH, 0 0 REGISTRY OUTPATIEN & HOME T [facility] - 9 9 [facility]PATIEN INC [facility] - 9 9 [facility] - 9 9 [facility] INC [facility] NURSES HEALTH[facility] 9 9 REGISTRY OUTPATIEN & HOME T [facility] NURSES HEALTH, 9 9 REGISTRY OUTPATIEN & HOME T [facility] NURSES HEALTH, 9 9 REGISTRY OUTPATIEN & HOME T [facility] NURSES HEALTH, 9 9 REGISTRY OUTPATIEN & HOME T [facility] - 9 9 [facility]EN INC [facility] - 9 9 [facility] INC [facility] - 9 9 [facility] INC [facility] NURSES HEALTH, 9 9 REGISTRY OUTPATIEN & HOME T [facility] - 9 9 [facility]PAT[facility]EN INC [facility] - 9 9 [facility] INC [facility] NURSES HEALTH[facility] 9 9 REGISTRY OUTPATIEN & HOME T [facility] NURSES HEALTH, 9 9 REGISTRY OUTPATIEN & HOME T [facility] 9 9 [facility] - 9 9 [facility] OUTPATIEN [facility] - 9 9 [facility] INC [facility] NURSES HEALTH[facility] 9 9 REGISTRY OUTPATIEN & HOME T [facility] NURSES HEALTH, 9 9 REGISTRY OUTPATIEN & HOME [facility] - 9 9 [facility]EN INC [facility] - 9 9 [facility] INC [facility] - 9 9 [facility] INC [facility] NURSES HEALTH, 9 9 REGISTRY OUTPATIEN & HOME [facility] - 9 9 [facility] - 9 9 [facility]PAT[facility] INC [facility] - 8 8 [facility] INC [facility] NURSES HEALTH, 8 8 REGISTRY OUTPATIEN & HOME [facility] - 8 8 [facility] INC [facility] NURSES HEALTH, 8 8 REGISTRY OUTPATIEN & HOME T [facility] NURSES HEALTH, 8 8 REGISTRY OUTPATIEN & HOME [facility] INC [facility] NURSES HEALTH, 8 8 REGISTRY OUTPATIEN & HOME [facility] - 8 8 Y[facility] OUTPATIEN [facility] [place] - 8 8 [facility] INC [facility] NURSES HEALTH, 8 8 REGISTRY OUTPATIEN & HOME [facility] - 8 8 [facility] - 8 8 [facility]PATIENT [facility] NURSES HEALTH, 8 8 REGISTRY OUTPATIEN & HOME [facility] - 8 8 [facility] INC [facility] NURSES HEALTH, 8 8 REGISTRY OUTPATIEN & HOME T [facility] NURSES HEALTH, 8 8 REGISTRY OUTPATIEN & HOME [facility] - 8 8 [facility] - 8 8 [facility] - 8 8 [facility] OUTPATIEN INC [facility] - 8 8 [facility]PAT[facility]EN INC [facility] NURSES HEALTH, 8 8 REGISTRY OUTPATIEN & HOME [facility] - 8 8 [facility] - [address] [facility]
--- OUTSIDE RECORDS SUMMARY | 2017-05-03 20:54 | External Medical Summary Rpt | CCD ---
Author Author , MARY Grant MARY Address Unknown Phone Care Team Providers Care Forming Operator Name Role Phone WAYNE DE, WAYNE Unavailable [...] Unavailable Unavailable [facility] Unavailable Unavailable SERVICE, [facility] Unavailable Unavailable SERVICE, [facility], Unavailable Unavailable [facility], Un[facility]available [facility], [facility], Unavailable Unavailable [facility] Unavailable Unavailable HEALTH, [facility] LEOPOLDO J, LEOPOLDO J Unavailable Unavailable [...] CAPONE JAMI, CAPONE Unavailable Unavailable JAMI HARRIES LOERTO, HARRIES Unavailable Unavailable LORETO [facility] Unavailable Unavailable INC, [facility] Unavailable Unavailable HOSPITAL P, [facility] JESUS RAY A, Unavailable Unavailable JESUS RAY A [facility], Unavailable Unavailable [facility] KEEDY LORETO, KEEDY LORETO Unavailable Unavailable [facility] Unavailable Unavailable [facility]ING [facility], [facility] & Unavailable Unavailable HAND S, [facility] Unavailable Un[facility], [facility] RODRIGUEZ EHSAN, RODRIGUEZ Unavailable Unavailable EHSAN ADRIEL JR DWI, ADRIEL Unavailable Unavailable JR DWI ADRIEL, JOELLEN E, Unavailable Unavailable ADRIEL, JOELLEN E [facility] Unavailable Unavailable LABORATORY, [facility] [place] Unavailable Unavailable NEUROSCIENCES [facility] [place] [facility] Unavailable Unavailable SERVICES, [facility] MCKEMIE JR IGGY, Unavailable Unavailable MCKEMIE JR IGGY MUSIC SLIVIA, MUSIC SILVIA Unavailable Unavailable [facility] Unavailable Unavailable [facility], [facility] Unavailable Unavailable [facility], [facility] KASSY DOBBINS, Unavailable Unavailable KASSY DOBBINS, Unavailable [...] [facility], [facility] STARLA, SAMSON, SATRLA, Unavailable Unavailable SAMSON RECHTIN MAINTENANCE ASSISTANT, RECHTIN Unavailable Unavailable MAINTENANCE ASSISTANT PAULO, JIMENEZ S, PAULO, Unavailable Unavailable JIMENEZ S VIC PURVIS Unavailable Unavailable Emani HO, Unavailable Unavailable Emani HO JAMES L, Unavailable Unavailable SYED TAFOYA SCHUMER Unavailable Unavailable REYNALDO WARREN, BANDAR Unavailable Unavailable BRIANA SOKAN, ANAYELI O, Unavailable Unavailable SOKAN, ANAYELI O [facility] Unavailable Unavailable EQUIPME, [facility] Unavailable Unavailable PHYSICIANS EKG, [facility] PHYSICIANS EKG [facility], Unavailable Unavailable [facility], Unavailable Unavailable [facility] MARGARET STEVENS, Unavailable Unavailable MARGARET STEVENS [...] HOME MELL[facility]US [facility]ICAL WITHOUT EQUIPME COMPLICATIO NS [id number] OTH 02-22-2017 [facility] FRACTURE HOME UNS LOWER MEDICAL LEG INIT EQUIPME ENC CLOS FX R072 PRECORDIAL 12-25-2016 NEW PAIN [facility] PSC R5381 OTHER 12-25-2016 NEW MALAISE [facility] PSC I10 ESSENTIAL 12-09-[address] [facility] P N [id number] ATHEROSCLER 12-09-2016 [facility] OSIS CABG [facility] P ANGINA PECTORIS R079 CHEST PAIN 12-09-2016 [facility] [place] [facility]PEC[facility] N200 CALCULUS OF 08-01-2016 [facility] [place] [facility] N201 CALCULUS OF 07-29-2016 [facility] P Z09 ENC F/U 07-29-2016 [facility] EXAM AFTR [facility] CMPL [facility] P THAN MALIG NEOPLSM [id number] PERSONAL 07-29-2016 [facility] P CALCULI I2510 ASHD [place] 06-29-2016 [facility] CORONARY [facility] ARTERY W/O INC ANGINA PECTORIS N132 HYDRONEPHRO 06-29-2016 [place] SIS W/RENAL MEDICAL & URETRL IMAGING ASS CALCULOUS OBST R1032 LEFT LOWER 06-29-2016 [place] QUADRANT MEDICAL PAIN IMAGING ASS Z720 TOBACCO USE 06-29-2016 [facility] INC J309 ALLERGIC 06-05-2016 [facility] RHINITIS PHYSICIANS UNSPECIFIED GROUP R05 COUGH 06-05-2016 [facility] J189 PNEUMONIA 05-12-2016 [facility] P R0602 SHORTNESS 05-12-2016 [facility] R0989 OTH SPEC SX 05-12-2016 [place] & SIGNS [facility]ICAL INVLV THE IMAGING ASS CIRC & RESP SYS I509 HEART 05-01-2016 [facility] FAILURE [facility] UNSPECIFIED INC E76589 UNSPECIFIED 05-01-2016 [facility] ASTHMA [facility] WITH ACUTE INC EXACERBATIO N J80 ACUTE 05-01-2016 [facility] AMBULANCE DISTRESS SERVICE SYNDROME R000 TACHYCARDIA 05-01-2016 [facility] UNSPECIFIED SERVICE R7989 OTHER SPEC 05-01-2016 [place] ABNORMAL MEDICAL FINDINGS IMAGING ASS BLOOD CHEMISTRY J441 CHRONIC 04-24-2016 [facility] OBSTRUCTIVE [facility] PULMONARY INC DZ W/EXACERBAT ION J42 UNSPECIFIED 02-27-2016 [facility] CHRONIC [facility] BRONCHITIS INC R911 SOLITARY 02-27-2016 [place] PULMONARY MEDICAL NODULE IMAGING ASS E785 HYPERLIPIDE 01-31-2016 [facility] UNSPECIFIED CLINIC PSC 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 01-17-2016 [facility] UNS BHV PHYSICIANS ENDOCRN GROUP GLAND & OTH PART NS E039 HYPOTHYROID 01-17-2016 [facility] ISM PHYSICIANS UNSPECIFIED GROUP H9110 PRESBYCUSIS 01-17-2016 [facility] PHYSICIANS UNSPECIFIED GROUP EAR H905 UNSPECIFIED 12-06-2015 [facility] PHYSICIANS SENSORINEUR GROUP AL HEARING LOSS N3020 OTHER 09-18-2015 [facility] CYSTITIS [facility] P WITHOUT HEMATURIA R350 FREQUENCY 09-18-2015 [facility] MICTURITION [facility] P R351 NOCTURIA 09-18-2015 [facility] P R102 PELVIC AND 08-14-2015 [facility] P I252 OLD 08-03-2015 [facility] INFARCTION R001 BRADYCARDIA 08-03-2015 [place] UNSPECIFIED CLINIC PSC R300 DYSURIA 08-03-2015 [facility] R9431 ABNORMAL 08-03-2015 NEW ELECTROCARD [place] IOGRAM CLINIC PSC L652JDS FOREIGN 08-03-2015 [facility] PARTS CLINIC PSC TRACT INITIAL ENC [id number] EROSION 08-03-2015 [facility] IMPLANTED MESH ORGN/TISS INITIAL G4733 OBSTRUCTIVE 07-06-2015 [facility]EP [facility] APNEA ADULT MEDICAL PEDIATRIC EQUIPME N210 CALCULUS IN 04-20-2015 NEW BL[facility] [place] [facility] PSC N211 CALCULUS IN 04-20-2015 [facility]IA URETHRA [facility]OCIATES PSC N9989 OTH 04-20-2015 [facility] POSTPROC HOSPITAL COMP DISORDERS GENITOURINA RY SYSTEM R319 HEMATURIA 04-20-2015 [facility] UNSPECIFIED HOSPITAL M939MEI FOREIGN 04-20-2015 [place] BLADDER CLINIC PSC INITIAL ENCOUNTER [id number] [facility] 04-20-2015 [facility] COMP OTH ASSOCIATES URINARY PSC DEVICES IMPL INIT ENC [id number] EXPOSURE OF 04-20-2015 [facility] IMPL HOSPITAL MESH INTO ORGN/TISS INITIAL Z7982 SENIOR LIVING 04-20-2015 [facility] CURRENT USE [facility] C31130 OTHER LONG 04-20-2015 [facility] CURRENT DRUG THERAPY G4736 SLEEP REL 04-07-2015 [place] HYPOVENTILA NEUROSCIENC TION ES CENT CONDITIONS CLASS ELSW G4730 SLEEP APNEA 04-04-2015 [facility] UNSPECIFIED INC R1030 LOWER 04-04-2015 [place] ABDOMINAL MEDICAL PAIN IMAGING ASS UNSPECIFIED 88055 OBSTRUCTIVE 03-06-2015 [facility] SLEEP HOME APNEA MEDICAL EQUIPME 44983 HYPOXEMIA 02-15-2015 [place] NEUROSCIENC ES CENT 7802 SYNCOPE AND 02-05-2015 NURSES COLL[place]SE REGISTRY & [place] 40093 UNSPECIFIED 02-05-2015 NURSES URINARY REGISTRY & [place]IN[place] E [address] DIAB W/O 01-01-2015 [facility] COMP TYPE MEDICAL II/UNS NOT STATED UNCNTRL 496 CHRONIC 12-20-2014 [facility] AIRWAY HOME OBSTRUCTION MEDICAL NEC EQUIPME 8248 UNSPECIFIED 12-20-2014 [facility] CLOSED HOME FRACTURE OF MEDICAL ANKLE EQUIPME 5920 CALCULUS OF 10-23-2014 [facility] [place] [facility] 90809 ABDOMINAL 10-23-2014 [place] PAIN, MEDICAL UNSPECIFIED IMAGING ASS SITE 74361 CHEST PAIN 10-16-2014 UNSPECIFIED [facility] EKG 486 PNEUMONIA, 08-22-2014 [facility] ORGANISM [facility] UNSPECIFIED INC 515 POSTINFLAMM 08-22-2014 [place] ATORY MEDICAL PULMONARY IMAGING ASS FIBROSIS 92958 OTHER 08-22-2014 [place] DISEASES OF MEDICAL LUNG NOT IMAGING ASS ELSEWHERE CLASSIFIED 7821 RASH AND 08-22-2014 [facility] OTHER [facility] NONSPECIFIC INC SKIN ERUPTION 7862 COUGH 08-22-2014 [facility] 7993 UNSPECIFIED 07-14-2014 NEW DEBILITY [facility] PSC 17112 ABDOMINAL 07-12-2014 [facility] PAIN, MEM HOSP EPIGASTRIC INC 4739 UNSPECIFIED 07-05-2014 [facility] SINUSITIS [facility] HOSP INC 8300 CLOSED 07-05-2014 [place] DISLOCATION MEDICAL OF JAW IMAGING ASS 2459 UNSPECIFIED 04-18-2014 [facility] THYROIDITIS INC 39989 DYSPHAGIA 04-18-2014 [facility] UNSPECIFIED [facility] HOS[facility] INC 4149 UNSPECIFIED 12-15-2013 ZACHARY JACOBS CHRONIC ISCHEMIC HEART DISEASE 54757 SWELLING OF 12-15-2013 [facility] [place] [facility] 66806 OTHER CHEST 12-15-2013 [facility] GIN PAIN 38113 GEN 05-30-2013 [facility] OSTEOARTHRO L REHAB SIS ASSOC PSC INVOLVING MULTIPLE SITES 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 56905 CORONARY 05-24-2013 VIC J ATHEROSCLER [facility] [place] CORONARY ARTERY 7242 LUMBAGO 04-20-2013 [facility] INC 15939 REFLUX 03-30-2013 ALVIN ANT ESOPHAGITIS 5952 OTHER 03-08-2013 WAYNE DE CHRONIC CYSTITIS 91997 OTHER 03-04-2013 [facility] DISEASES OF CINDY SPLEEN 4400 ATHEROSCLER 03-04-2013 [facility] OSIS OF CINDY AORTA 5718 OTHER 03-04-2013 [facility] CHRONIC CINDY NONALCOHOLI C LIVER DISEASE 5929 UNSPECIFIED 03-04-2013 EL[facility]ETH URINARY [facility] CALCULUS INC 51386 ABDOMINAL 03-04-2013 [facility] PAIN, LEFT [facility] HOSP UPPER INC QUADRANT 4439 UNSPECIFIED 01-06-2013 FINE ALEXEI PERIPHERAL VASCULAR DISEASE 95305 OTHER 01-04-2013 JUNI GUADALUPE SPECIFIED CARDIAC DYSRHYTHMIA S 03906 ATHEROSLERO 01-04-2013 JUNI GUADALUPE NATV ART EXTREM [...] PECTORIS 4293 CARDIOMEGAL 01-03-2013 [facility] Y CINDY 92558 NONSPECIFIC 01-03-2013 JUNI GUADALUPE ABNORMAL ELECTROCARD IOGRAM V4581 POSTSURGICA 01-03-2013 X[facility]CHITL L CINDY AORTOCORONA RY BYPASS STATUS 2449 UNSPECIFIED 11-29-2012 MICHAEL MOSER HYPOTHYROID ISM 14963 ACUT MN 09-21-2012 VIC Joaquin SUBENDOCARD IAL INFARCT EPIS CARE UNS 75470 ACUT MN 09-19-2012 MARITA DANGELO SUBENDOCARD IAL INFARCT INIT EPIS CARE 26410 OTHER 09-18-2012 ADRIEL JR CONVULSIONS DWI 6929 CONTACT 09-16-2012 MUSIC SILVIA DERMATITIS& OTHER ECZEMA DUE UNSPEC CAUSE 6953 ROSACEA 09-16-2012 MUSIC SILVIA 2448 OTHER 08-24-2012 [facility] SPECIFIED HOSPITAL ACQUIRED HYPOTHYROID ISM 63257 INCI HERNIA 08-24-2012 [facility] WITHOUT HOSPITAL MENTION OBSTRUCTION /GANGRENE V5866 LONG-TERM 08-24-2012 [facility] USE OF HOSPITAL ASPIRIN V5869 LONG-TERM 08-24-2012 [facility] (CURRENT) HOSPITAL USE OF OTHER MEDICATIONS 5989 UNSPECIFIED 07-13-2012 [facility] P 4659 ACUTE URIS 05-13-2012 ALEXANDREA DUNHAM OF [facility] UNSPECIFIED SITE 485 BRONCHOPNEU 04-07-2012 BANDAR DYSON ORGANISM UNSPECIFIED 97031 COR 03-19-2012 [facility] TYPE VESSEL [place]/LOVELY T 5969 UNSPECIFIED 03-19-2012 VIC Joaquin DISORDER OF BLADDER 39580 OSTEOARTHRO 03-19-2012 [facility] WHETHER GEN/LOC UNSPEC SITE 08165 MIXED 03-19-2012 [facility] E URGE AND STRESS 95553 URINARY 03-19-2012 [facility] 6259 UNSPEC 03-16-2012 WAYNE DE SYMPTOM ASSOC W/FEMALE GENITAL ORGANS 28194 INCOMPLETE 03-16-2012 WAYNE DE BLADDER EMPTYING 91353 DISPLCMT 03-09-2012 [place] LUMBAR MEDICAL INTERVERT IMAGING ASS DISC W/O MYELOPATHY 01985 ABDOMINAL 03-09-2012 [facility] PAIN RIGHT MEM HOS[facility] LOWER INC QUADRANT 71089 MIGRAINE 03-08-2012 JAMAL R UNS H W/INTRACTAB L W/O STATUS MIGRAINOSUS 48757 URETHRAL 03-02-2012 WAYNE DE SYNDROME NOS 7231 CERVICALGIA 12-21-2011 [facility] 99926 OTHER 12-21-2011 WEHRMAN III MALAISE AND IGGY FATIGUE 7840 HEADACHE 12-21-2011 WEHRMAN III IGGY E8889 UNSPECIFIED 12-21-2011 [place] FALL [facility] 3384 CHRONIC 12-11-2011 LEOPOLDO Joaquin Se[facility] PAIN SYNDROME 4280 CONGESTIVE 12-11-2011 LEOPOLDO Joaquin [facility] HEART FAILURE UNSPECIFIED 12534 MICROSCOPIC 12-11-2011 LEOPOLDO Emani Benton HEMATURIA 26036 ABDOMINAL 12-11-2011 LEOPOLDO Joaquin Serenity PAIN, GENERALIZED 2768 HYPOPOTASSE 11-12-2011 LEOPOLDO Joaquin Serenity MARGARET 4292 UNSPECIFIED 11-12-2011 LEOPOLDO Benton CARDIOVASCU LAR DISEASE 07162 NAUSEA 10-31-2011 [facility] [place] [facility] 93987 ABDOMINAL 10-31-2011 [place] PAIN RIGHT EMERGENCY UPPER SERVICES QUADRANT 7934 NONSPECIFIC 10-31-2011 SHIREEN STEFAN ABN FINDING RAD & OTH EXAM GI TRACT 81733 OTHER 10-31-2011 [place] ILL-DEFINED EMERGENCY CONDITIONS SERVICES 11113 UNSPECIFIED 10-30-2011 RECHTIN MAINTENANCE ASSISTANT PYELONEPHRI TIS 5921 CALCULUS OF 09-25-2011 NEW URETER [facility] PSC 2689 UNSPECIFIED 09-23-2011 WAYNE DE VITAMIN D DEFICIENCY 7880 RENAL COLIC 09-21-2011 [facility] 591 HYDRONEPHRO 09-20-2011 [place] SIS [facility] ASS 62325 OTHER 09-20-2011 [place] SPECIFIED MEDICAL DISORDER OF IMAGING ASS KIDNEY AND URETER 90153 ABDOMINAL 09-20-2011 LEOPOLDO Joaquin PAIN OTHER SPECIFIED SITE 7291 UNSPECIFIED 08-22-2011 [place] MYALGIA PAIN AND MYOSITIS 62359 UNSPECIFIED 08-15-2011 [place] TEAR FILM VISION INSUFFICIEN CY 5180 PULMONARY 08-09-2011 [place] COLLAPSE [facility]ING ASS 5183 PULMONARY 08-09-2011 [place] EOSINOPHILI MEDICAL A IMAGING ASS 67390 PAINFUL 08-09-2011 WEHRMAN III RESPIRATION IGGY 34763 PAIN IN 08-01-2011 [facility] JOINT DIABETIC PELVIC REGION AND THIGH 34931 MUSCLE 08-01-2011 [facility] WEAKNESS DIABETIC (GENERALIZE D) 90183 OTH COMPS 06-27-2011 [facility] IN[facility]IN[facility] PSC ORTHOPED DEVICE IMPL&GFT 29429 OTH COMPS 06-27-2011 NEW [facility]UE [facility]IN[facility] PSC PROSTH DEVICE IMPL&GFT 85842 OTHER 06-27-2011 ANESTHESIA SPECIFIED ASSOC PSC COMPLICATIO NS NEC V7281 PRE-OPERATI 06-27-2011 [facility] CARDIOVASCU CLINIC PSC LAR EXAMINATION 48441 NONUNION OF 06-24-2011 PODIATRIC FRACTURE FOOT & ANKLE SPECI 460 ACUTE 06-11-2011 LEOPOLDO Joaquin NASOPHARYNG ITIS 4720 CHRONIC 03-27-2011 [place] RHINITIS [facility] ASS 4660 ACUTE 02-06-2011 [facility] BRONCHITIS ASSOCIATES 7904 NONSPEC 12-13-2010 [place] ELEVATION MEDICAL OF [place] IMAGING ASS OF TRANSAMINAS E/LDH 7871 HEARTBURN 10-21-2010 [place] [facility] 6823 CELLULITIS 10-03-2010 [facility] AND ABSCESS EMERGENCY OF UPPER SERVICES ARM AND FOREARM 3569 UNSPEC 09-10-2010 [facility] OPATHIC PERIPHERAL NEUROPATHY 3560 HEREDITARY 09-03-2010 ELENITA LORETO PERIPHERAL NEUROPATHY 17670 PAIN IN 08-07-2010 [place] JOINT, ORTHOPEDIC SHOULDER & HAND S REGION 78335 UNSPEC 07-30-2010 [facility] DISORDERS L REHAB BURSAE&TEND [...] EHSAN RHINITIS CAUSE UNSPECIFIED 2662 OTHER 03-13-2010 [facility] B-COMPLEX ASSOCIATES DEFICIENCIE S 6278 OTHER SPEC 02-20-2010 [place] MENOPAUSAL& MEDICAL POSTMENOPAU IMAGING ASS ALEC DISORDER V7612 OTHER 02-20-2010 [place] SCREENING MEDICAL MAMMOGRAM IMAGING ASS V762 SCREENING 02-13-2010 PATHOLOGY & FOR CYTOLOGY MALIGNANT LAB NEOPLASM OF THE CERVIX 94255 SHORTNESS 01-30-2010 [facility] P V4509 OTHER 01-30-2010 [facility] SPECIFIED MEM HOSP CARDIAC INC DEVICE IN SITU 7245 UNSPECIFIED 11-21-2009 [facility] BACKACHE ASSOCIATES 67163 ESOPHAGEAL 10-01-2009 [place] [facility] REFLUX SERV FOUND[facility] 89873 ATROPHIC 10-01-2009 PATHOLOGY & GASTRITIS CYTOLOGY WITHOUT LAB MENTION OF HEMORRHAGE 31062 OTHER SPEC 10-01-2009 [place] [facility] GASTRITIS SERV WITHOUT FOUNDATIO MENTION HEMORRHAGE V5863 LONG-TERM 10-01-2009 [facility] USE OF MEM HOSP ANTIPLATELE INC T/ANTITHROM BOTIC 7873 FLATULENCE 09-17-2009 [place] ERUCTATION MEDICAL AND GAS IMAGING PAIN ASSOCIATES 5990 URINARY 08-07-2009 [facility] TRACT [facility] INFECTION SITE NOT SPECIFIED 44498 LATERAL 08-07-2009 [facility] EPICONDYLIT ASSOCIATES IS OF ELBOW 4553 EXTERNAL 06-25-2009 [place] HEMORRHOIDS EMERGENCY WITHOUT SERVICES MENTION ASSOCIATES COMP 4555 EXTERNAL 06-25-2009 [facility] HEMORRHOIDS MEM HOS[facility] WITH OTHER INC COMPLICATIO N 490 BRONCHITIS 06-11-2009 [facility] NOT ASSOCIATES SPECIFIED ACUTE OR CHRONIC 91352 UNSPECIFIED 05-03-2009 [facility] VIRAL ASSOCIATES INFECTION IN CCE & UNS SITE 85034 CONJUNCTIVA 03-01-2009 [facility] L ASSOCIATES HEMORRHAGE 83584 BLEPHARITIS 02-05-2009 [facility] , ASSOCIATES UNSPECIFIED 19878 [facility] 02-02-2009 NEW COMPLICATIO [place] N DUE CLINIC [facility] CORONARY BYPASS GRAFT 20324 OTHER 01-10-2009 [facility] SPECIFIED ASSOCIATES CIRCULATORY SYSTEM DISORDERS 82004 VOMITING 01-10-2009 [facility] ALONE [facility]OCIATES 2440 POSTSURGICA 01-04-2009 [facility] HYPOTHYROID LABORATORY ISM 06731 GLUCOCORTIC 01-02-2009 [facility]ICI[facility]ICE 23027 OTHER ACUTE 01-02-2009 [place] PAIN EMERGENCY SERVICES ASSOCIATES 7804 DIZZINESS 12-23-2008 [facility] PROF SERV 7919 OTHER 12-23-2008 [facility] EXAMINATION PROF SERV OF URINE 05768 UNSPEC 11-13-2008 [facility]IAL AIDA W/O ASSOCIATES MENTION OBST/GANGRE N V4589 OTHER 10-27-2008 RADIOLOGY POSTSURGICA ASSOCIATES L STATUS PSC OTHER 74694 MIGRAINE 10-23-2008 [facility] UNSP W/O [facility] INTRACT W/O HOSP STATUS MIGRAINOSUS V443 COLOSTOMY 10-23-2008 [facility] STATUS [facility] HOSP 75553 OTH VENTRAL 10-16-2008 [facility] AIDA W/O MEM HOS[facility] MENTION INC OBSTRUCTION /GANGREN 5789 UNSPECIFIED 10-12-2008 [facility] HEMORRHAGE SURGIAL OF ASSOCIATES GASTROINTES TINAL TRACT 51783 ENTHESOPATH 09-13-2008 [facility] Y OF ASSOCIATES UNSPECIFIED SITE 7295 PAIN IN 09-06-2008 [facility] SOFT [facility]OCIATES TISSUES OF LIMB 7212 THORACIC 07-25-2008 [facility], SPONDYLOSIS PHU WITHOUT MYELOPATHY 47728 OTH 07-24-2008 [facility] SPECIFIED MEM HOSP INFLAMMATOR INC Y POLYARTHROP ATHIES OTH 33953 SINOATRIAL 06-18-2008 [facility] AMBULANCE DYSFUNCTION SERVICE 35622 PRECORDIAL 06-17-2008 [facility] 5950 ACUTE 04-11-2008 [facility] CYSTITIS H UROLOGY PSC 6256 FEMALE 03-21-2008 [facility] STRESS H UROLOGY INCONTINENC PSC E 7262 OTHER 02-29-2008 [facility] AFFECTIONS L REHAB OF SHOULDER ASSOC PSC REGION NEC V4582 POSTSURG 02-11-2008 [facility] TRANSLUMINA L COR ANGPLSTY STS 51335 DIAB 01-31-2008 [facility], W/OPHTH JESUS A MANIFESTS TYPE II/UNS TYPE UNCNTRL 57500 BORDERLINE 01-31-2008 [facility] GLAUC OPEN JESUS A ANGLE BL FINDINGS LOW RSK 4785 OTHER 01-27-2008 PATHOLOGY & DISEASES OF CYTOLOGY VOCAL LAB CORDS 39807 DIAB 01-24-2008 [facility] W/NEURO [facility] MANIFESTS HOSP TYPE II/UNS NOT UNCNTRL 3572 POLYNEUROPA 01-24-2008 [facility] THY IN [facility] DIABETES HOSP V4579 OTHER 01-24-2008 [facility] ACQUIRED [facility]ANI ABSENCE OF HOSP ORGAN 2761 HYPOSMOLALI 12-14-2007 [facility] AND/OR [facility] A PROF SERV 07512 OBST 12-14-2007 [facility] CHRONIC [facility] W/ACUTE PROF SERV BRONCHITIS 01652 OTHER ACUTE 12-03-2007 [facility] [place] ANESTHESIA POSTOPERATI VE PAIN 19703 NONTRAUMATI 12-03-2007 [place] ORTHO C RUPTURE AND HAND OF TENDONS SURGEONS OF BICEPS PSC 413 ANGINA 11-22-2007 [facility] 47726 UNSPECIFIED 11-02-2007 [facility] RETENTION H UROLOGY OF URINE PSC 7820 DISTURBANCE 10-29-2007 [facility], OF SKIN ESAU SENSATION 43657 THYROTOX 10-06-2007 [facility] W/O MEM HOSP GOITER/OTH INC CAUSE W/O CRISIS 2859 UNSPECIFIED 08-26-2007 [facility] ANEMIA [facility] 4011 ESSENTIAL 08-23-2007 NEW HYPERTENSIO [place] N, BENIGN CLINIC PSC 4259 UNSPECIFIED 08-03-2007 [facility]EST[facility]IA [facility] ASSOC[facility], CARDIOMYOPA PSC THY 4264 RIGHT 08-03-2007 [facility] PSC BLOCK 5119 UNSPECIFIED 08-03-2007 [facility] [place] PLEURAL RADIOLOGY EFFUSION V148 PERSONAL 07-06-2007 [facility] ALLERGY OTH SPEC MEDICINAL AGTS V462 DEPENDENCE 07-06-2007 [facility] ON MACHINE [facility] FOR [facility]PPLE[facility] L OXYGEN [id number] GEN CONVUL 07-05-2007 STARLA, EPILEPSY SAMSON W/O [...] 08 10 2 90 30 CL 24 MN Ac AZ 59 -0 -0 .0 IN 30 LL ti EP 15 1- 7- 00 IC 35 ER ve AM 62 20 20 01 11 11 PH CA 10 0 AR RO MA L MG CY J TA LL BL C ET DI 00 08 09 2 90 30 CL 24 MN Ac AZ 59 -0 -0 .0 IN [...] 03 08 2 90 30 CL 23 MN Ac AZ 59 -1 -0 .0 IN [...] 03 05 2 90 30 CL 23 MN Ac AZ 59 -1 -0 .0 IN [...] 03 04 2 90 30 CL 23 MN Ac AZ 59 -1 -1 .0 IN 46 LL ti EP 15 4- 2- 00 IC 35 ER ve AM 62 20 20 01 11 11 PH CA 10 0 AR RO MA L MG CY J TA BL C ET DI 00 01 03 2 90 30 CL 22 MN Ac AZ 59 -0 -0 .0 IN [...] 01 02 2 90 30 CL 22 MN Ac AZ 59 -0 -0 .0 IN 98 LL ti EP 15 4- 3- 00 IC 90 ER ve AM 62 20 20 01 11 11 PH CA 10 0 AR RO MA L MG CY J TA BL C ET DI 00 01 01 2 90 30 CL 22 MN Ac AZ 59 -0 -0 .0 IN [...] AL 37 09 09 00 28 28 HI 88 CO Ac IG 00 -0 -1 [...] ET 63 03 04 00 10 5 HI 88 CO Ac 82 -2 -0 .0 [...] Date Code Location Performer Type Date [facility], 7 7 LT HOME INPATIENT HEALTH HOME [...] [facility] - 7 7 [facility] OUTPATIEN [facility] - 7 7 [facility]IEN [facility] - 7 7 [facility] [address] [facility] HOME INPATIENT HEALTH [facility] - 7 7 [facility] INC [facility], [address] [facility] HOME INPATIENT [facility] - [address] [facility] - 6 6 [facility] OUTPATIEN [facility] - 6 6 [facility]IEN [facility], 6 6 LT HOME INPATIENT HEALTH [facility] 6 6 LT HOME [facility] - 6 6 [facility], 6 6 LT HOME INPATIENT HEALTH [facility], 6 6 LT HOME INPATIENT HEALTH HOME [facility], 6 6 LT HOME INPATIENT HEALTH HOME [facility] 6 6 LT HOME INPATIENT HEALTH [facility], 6 6 LTH HOME INPATIENT HEALTH HOME [facility], 6 6 LTH HOME INPATIENT HEALTH HOME [facility], 6 6 LTH HOME INPATIENT [facility]IEN [facility], 5 5 REGISTRY INPATIENT & HOME HE [facility], 5 5 REGISTRY INPATIENT & HOME HE HOME [facility]SES [facility], 5 5 REGISTRY INPATIENT & HOME HOSPITAL [facility] - 5 5 MEM [facility] OUTPATIEN INC [facility] NURSES HEALTH, 5 5 REGISTRY INPATIENT & HOME HE HOME NURSES HEALTH, 5 5 REGISTRY INPATIENT & HOME HOSPITAL [facility] - 5 5 MEM H[facility] OUTPATIEN INC [facility] [facility] - 5 5 [facility]N - 5 5 [facility] [...] 3 REGISTRY OUTPATIEN & HOME HE T [facility] AILYN - 3 3 [facility] - 3 3 HOSPITAL OUTPATIEN T HOME NURSES HEALTH, 2 2 REGISTRY OUTPATIEN & HOME HE T [facility] AILYN - 2 2 [facility] T HOME NURSES HEALTH, 2 2 REGISTRY OUTPATIEN & HOME HE T [facility] - [facility] T HOME NURSES HEALTH, 2 2 REGISTRY OUTPATIEN & HOME HE T [facility] A[facility]N - 2 2 [facility] [...] 1 REGISTRY OUTPATIEN & HOME HE T [facility] AILYN - 1 1 [facility] T [facility] A[facility]N - 1 1 [facility] INC T HOME NURSES HEALTH, 1 1 REGISTRY OUTPATIEN & HOME HE T [facility] A[facility]N - 1 1 [facility] T HOME NURSES HEALTH, 0 0 REGISTRY OUTPATIEN & HOME HE T HOME NURSES HEALTH, 0 0 REGISTRY OUTPATIEN & HOME HE T [facility] AILYN - 0 0 [facility] [...] HEALTH, 0 0 REGISTRY OUTPATIEN & HOME [facility] HOME NURSES HEALTH, 0 0 REGISTRY OUTPATIEN & HOME T [facility] AILYN - 0 0 [facility] HOME NURSES HEALTH, 0 0 REGISTRY OUTPATIEN & HOME T [facility] AILYN - 0 0 [facility] AILYN - 0 0 [facility] INC HOME NURSES HEALTH, 0 0 REGISTRY OUTPATIEN & HOME T [facility] NURSES HEALTH, 0 0 REGISTRY OUTPATIEN & HOME [facility] AILYN - 0 0 [facility] OUTPATIEN [facility] AILYN - 0 0 [facility] OUTPATIEN INC [facility] NURSES HEALTH, 0 0 REGISTRY OUTPATIEN & HOME T [facility] AILYN - 9 9 [facility] INC [facility] AILYN - 9 9 [facility] OUTPATIEN [facility] A[facility]N - 9 9 [facility]PATIEN INC [facility] NURSES HEALTH, 9 9 REGISTRY OUTPATIEN & HOME T [facility] NURSES HEALTH, 9 9 REGISTRY OUTPATIEN & HOME T [facility] NURSES HEALTH, 9 9 REGISTRY OUTPATIEN & HOME T [facility] NURSES HEALTH, 9 9 REGISTRY OUTPATIEN & HOME T [facility] AILYN - 9 9 [facility] AILYN - 9 9 [facility] INC [facility] AILYN - 9 9 [facility] INC [facility] NURSES HEALTH, 9 9 REGISTRY OUTPATIEN & HOME T [facility] AILYN - 9 9 [facility]PAT[facility] INC [facility] AILYN - 9 9 [facility]PATIEN INC [facility] NURSES HEALTH, 9 9 REGISTRY OUTPATIEN & HOME T [facility] NURSES HEALTH, 9 9 REGISTRY OUTPATIEN & HOME T [facility] ACCESS [address] [facility] - 9 9 YARSANI OUTPATIEN [facility] AILYN - 9 9 [facility]PATIEN INC [facility] NURSES HEALTH, 9 9 REGISTRY OUTPATIEN & HOME T [facility] NURSES HEALTH, 9 9 REGISTRY OUTPATIEN & HOME [facility] AILYN - 9 9 [facility] INC [facility] AILYN - 9 9 [facility]PAT[facility] INC [facility] AILYN - 9 9 [facility] INC [facility] NURSES HEALTH, 9 9 REGISTRY OUTPATIEN & HOME [facility] A[facility]N - 9 9 [facility]PATIEN [facility] AILYN - 9 9 [facility]PATI[facility] INC [facility] AILYN - 8 8 [facility]PATIEN INC [facility] NURSES HEALTH, 8 8 REGISTRY OUTPATIEN & HOME [facility] AILYN - 8 8 [facility]PAT[facility]EN INC [facility] NURSES HEALTH, 8 8 REGISTRY OUTPATIEN & HOME T [facility] NURSES HEALTH, 8 8 REGISTRY OUTPATIEN & HOME [facility] NURSES HEALTH, 8 8 REGISTRY OUTPATIEN & HOME [facility] - 8 8 YARSANI OUTPATIEN [facility] - 8 8 [facility]IEN INC [facility] NURSES HEALTH, 8 8 REGISTRY OUTPATIEN & HOME [facility] - 8 8 [facility]EN [facility] - 8 8 [facility]PATIENT [facility] NURSES HEALTH, 8 8 REGISTRY OUTPATIEN & HOME [facility] - 8 8 [facility] INC [facility] NURSES HEALTH, 8 8 REGISTRY OUTPATIEN & HOME T [facility] NURSES HEALTH, 8 8 REGISTRY OUTPATIEN & HOME [facility] - 8 8 [facility]IEN [facility] - 8 8 [facility] - 8 8 [facility] INC [facility] - 8 8 [facility] INC [facility] NURSES HEALTH, 8 8 REGISTRY OUTPATIEN & HOME [facility] - 8 8 [facility]
--- OUTSIDE RECORDS SUMMARY | 2017-05-03 20:55 | External Medical Summary Rpt | CCD ---
Demographics Preferred Language Estonian Marital Status Unknown Worship Affiliation Unknown Race Unknown Ethnic Group Unknown Author Author , MARY HERNANDEZ Address Unknown Phone Immunization No patient found.
--- OUTSIDE RECORDS SUMMARY | 2017-05-03 20:55 | External Medical Summary Rpt | CCD ---
Demographics Preferred Language Montenegrin Marital Status Unknown Sikh Affiliation Unknown Race Unknown Ethnic Group Unknown Author Author , MARY HERNANDEZ Address Unknown Phone Immunization No patient found.
--- OUTSIDE RECORDS SUMMARY | 2017-05-03 20:56 | External Medical Summary Rpt ---
Author Author MARY Mayi, [employer] [employer] Organization [employer] Address Unknown Phone Unavailable Results Troponin I.cardiac [Mass/volume] in Serum or Plasma Observa Value Referen Units Interpr Notes Date tion ce etation Range Troponin 0.00 - ng/mL Normal No Dec 09 I.cardiac 0.06 informati 2016 1:35 on in PM [Mass/vol source ume] in data Serum or Plasma CBC W Auto Differential panel in Blood Observa Value Referen Units Interpr Notes Date tion ce etation Range Basophils 0 - 0.2 K/MM3 Normal No Dec 09 inform2016 [#/volume on in 10:30 AM ] in source Blood by data Automated count Basophils 0.1 - 2.0 % Normal No Dec 09 /100 informati 2016 leukocyte on in 10:30 AM s in source Blood by data Automated count Eosinophi 0.0 - 0.4 K/mm3 Normal No Dec 09 ls informati 2016 [#/volume on in 10:30 AM ] in source Blood by data Automated count Eosinophi 0.1 - % Normal No Dec 09 ls/100 12.0 inform2016 leukocyte on in 10:30 AM s in source Blood by data Automated count Granulocy 1.8 - 7.8 K/mm3 Normal No Dec 09 navneet inform2016 [#/volume on in 10:30 AM ] in source Blood by data Automated count Granulocy 37.0 - % Normal No Dec 09 navneet/100 80.0 informati 2016 leukocyte on in 10:30 AM s in source Blood by data Automated count Hematocri 37.0 - % Normal No Dec 09 t [Volume 47.0 informati 2016 on in 10:30 AM Fraction] source of Blood data Hemoglobi 12.2 - g/dL Normal No Dec 09 n 16.2 informati 2016 [Mass/vol on in 10:30 AM ume] in source Blood data Lymphocyt 0.7 - 4.5 K/mm3 Normal No Dec 09 es inform2016 [#/volume on in 10:30 AM ] in source Unspecifi data ed specimen by Automated count Lymphocyt 10 - 50.0 % Normal No Dec 09 es inform2016 [#/volume on in 10:30 AM ] in source Unspecifi data ed specimen by Automated count Erythrocy 27 - 31.2 pg Normal No Dec 09 te mean 2016 corpuscul on in 10:30 AM ar source hemoglobi data n [Entitic mass] Erythrocy 31.8 - g/dl Normal No Dec 09 te mean 35.4 2016 corpuscul on in 10:30 AM ar source hemoglobi data n concentra tion [Mass/vol ume] by Automated count Erythrocy 82.2 - fl Normal No Dec 09 te mean 97.8 2016 corpuscul on in 10:30 AM ar volume source [Entitic data volume] by Automated count Monocytes 0.1 - 1.0 K/mm3 Normal No Dec 092016 [#/volume on in 10:30 AM ] in source Blood by data Automated count Monocytes 1.7 - 9.3 % Normal No Dec 09 /100 2016 leukocyte on in 10:30 AM s in source Blood by data Automated count Platelet 7.4 - fl Normal No Dec 09 mean 10.4 2016 volume on in 10:30 AM [Entitic source volume] data in Blood by Automated count Platelets 142 - 424 K/mm3 Normal No Dec 092016 [#/volume on in 10:30 AM ] in source Blood data Erythrocy 4.2 - 5.4 M/mm3 Normal No Dec 09 navneet 2016 [#/volume on in 10:30 AM ] in source Amniotic data fluid Erythrocy 11.5 - % Normal No Dec 09 te 17.5 2016 distribut on in 10:30 AM ion width source [Entitic data volume] by Automated count Leukocyte 4.8 - K/MM3 Normal No Dec 09 s 10.8 2016 [#/volume on in 10:30 AM ] in source Blood data DIARRHEA PANEL,PCR Observa Value Referen Units Interpr Notes Date tion ce etation Range Adenovi NOT NOT No No No Nov 27 gonzalo DETECTE DETECTE informa informa informa 2016 40+41 D tion in tion in tion in 10:00 Ag source source source PM [Presen data data data ce] in Stool Aeromon NOT NOT No No No Tal 15 as DETECTE DETECTE informa informa informa 2017 salmoni D tion in tion in tion in 10:00 tamika source source source PM [Presen data data data ce] in Unspeci fied specime n Astrovi NOT NOT No No No Tal 15 gonzalo DETECTE DETECTE informa informa informa 2017 [Presen D tion in tion in tion in 10:00 ce] in source source source PM Stool data data data by Electro n microsc opy Campylo NOT NOT No No No Tal 15 bacter DETECTE DETECTE informa informa informa 2017 sp Ab D tion in tion in tion in 10:00 [Presen source source source PM ce] in data data data Serum Clostri NOT NOT No No No Nov 15 dium DETECTE DETECTE informa informa informa 2017 diffici D tion in tion in tion in 10:00 le source source source PM toxin data data data A+B [Presen ce] in Stool Cryptos NOT NOT No No No Nov 15 poridiu DETECTE DETECTE informa informa informa 2017 m sp Ag D tion in tion in tion in 10:00 source source source PM [Presen data data data ce] in Unspeci fied specime n Cyclosp NOT NOT No No No Nov 15 ora DETECTE DETECTE informa informa informa 2017 cayetan D tion in tion in tion in 10:00 jovanny source source source PM [Presen data data data ce] in Unspeci fied specime n Escheri NOT NOT No No No Nov 15 mel DETECTE DETECTE informa informa informa 2017 coli D tion in tion in tion in 10:00 [Presen source source source PM ce] in data data data Unspeci fied specime n by Culture FDA method Escheri NOT NOT No No No Nov 15 mel DETECTE DETECTE informa informa informa 2017 coli D tion in tion in tion in 10:00 [Presen source source source PM ce] in data data data Unspeci fied specime n by Culture FDA method Escheri NOT NOT No No No Tal 15 mel DETECTE DETECTE informa informa informa 2017 coli D tion in tion in tion in 10:00 Shiga-l source source source PM kwesi data data data toxin 1 assa Escheri NOT NOT No No No Nov 27 mel DETECTE DETECTE informa informa informa 2016 coli D tion in tion in tion in 10:00 O157:[id number] source source source PM data data data [Presen ce] in Stool by Organis m specifi c culture Entamoe NOT NOT No No No Nov 15 ba DETECTE DETECTE informa informa informa 2017 histoly D tion in tion in tion in 10:00 warren source source source PM [Presen data data data ce] in Stool by Trichro me stain Giardia NOT NOT No No No Nov 27 DETECTE DETECTE informa informa informa 2017 lamblia D tion in tion in tion in 10:00 Ag source source source PM [Presen data data data ce] in Stool Norovir NOT NOT No No No Nov 27 us Ag DETECTE DETECTE informa informa informa 2016 [Presen D tion in tion in tion in 10:00 ce] in source source source PM Stool data data data Stool NOT NOT No No No Nov 27 Plesiom DETECTE DETECTE informa informa informa 2017 onas D tion in tion in tion in 10:00 shigell source source source PM oides data data data DNA detec Rotavir NOT NOT No No No Nov 27 us RNA DETECTE DETECTE informa informa informa 2017 detecti D tion in tion in tion in 10:00 on by source source source PM probe data data data and tar Salmone NOT NOT No No No Nov 27 lla sp DETECTE DETECTE informa informa informa 2016 DNA D tion in tion in tion in 10:00 [Identi source source source PM fier] data data data in Unspeci fied specime n by Probe & target amplifi cation method Caliciv NOT NOT No No No Nov 27 irus DETECTE DETECTE informa informa informa 2016 [Identi D tion in tion in tion in 10:00 fier] source source source PM in data data data Stool by Electro n microsc opy Escheri NOT NOT No No No Nov 27 mel DETECTE DETECTE informa informa informa 2016 coli D tion in tion in tion in 10:00 [Presen source source source PM ce] in data data data Unspeci fied specime n by Culture FDA method Escheri NOT NOT No No No Tal 15 mel DETECTE DETECTE informa informa informa 2017 coli D tion in tion in tion in 10:00 SXT source source source PM gene+H7 data data data gene [Identi fier] in Unspeci fied specime n by Probe & target amplifi cation method Vibrio NOT NOT No No No Tal 15 cholera DETECTE DETECTE informa informa informa 2016 e DNA D tion in tion in tion in 10:00 [Presen source source source PM ce] in data data data Unspeci fied specime n by Probe & target amplifi cation method Vibrio NOT NOT No No No Tal 15 sp DNA DETECTE DETECTE informa informa informa 2016 [Identi D tion in tion in tion in 10:00 fier] source source source PM in data data data Unspeci fied specime n by Probe & target amplifi cation method Vibrio NOT NOT No No No Tal 15 sp DETECTE DETECTE informa informa informa 2016 identif D tion in tion in tion in 10:00 ied in source source source PM Stool data data data by Organis m specifi c culture NT Pro-BNP Observa Value Referen Units Interpr Notes Date tion ce etation Range NT 56 <=319 pg/mL No An NT October 16 Pro-BNP informa pro-BNP 2014 tion in level 9:35 PM source less data than 300 pg/mL in any patient , regardl ess of age,\.b r\Effec tively rules out acute CHF with a 99% negativ e predict merrick value. Auto Diff Observa Value Referen Units Interpr Notes Date ti ce etation Range Neutrop 49.0 No % No No October 16 hils informa informa informa 2014 [#/volu tion in tion in tion in 8:59 PM me] in source source source Blood data data data by Automat ed count Lymphoc 42.4 No % No No October 16 ytes informa informa informa 2014 [#/volu tion in tion in tion in 8:59 PM me] in source source source Blood data data data by Automat ed count Monocyt 6.6 No % No No October 16 es informa informa informa 2014 [#/volu tion in tion in tion in 8:59 PM me] in source source source Blood data data data by Automat ed count Eos 1.2 No % No No October 4 Percent informa informa informa 2015 tion in tion in tion in 8:59 PM source source source data data data Baso 0.8 No % No No October 4 Percent informa informa informa 2015 tion in tion in tion in 8:59 PM source source source data data data Neut# 4.7 1.8 - x10(3)/ No No October 16 7.7 mcL informa informa 2015 tion in tion in 8:59 PM source source data data Lymph# 4.1 0.6 - x10(3)/ No No October 16 4.8 mcL informa informa 2015 tion in tion in 8:59 PM source source data data Flagler# 0.6 0.0 - x10(3)/ No No October 16 1.3 mcL informa informa 2015 tion in tion in 8:59 PM source source data data Eos# 0.1 0.0 - x10(3)/ No No October 16 0.5 mcL informa informa 2014 tion in tion in 8:59 PM source source data data Baso# 0.1 0.0 - x10(3)/ No No October 16 0.2 mcL informa informa 2014 tion in tion in 8:59 PM source source data data CBC Observa Value Referen Units Interpr Notes Date tion ce etation Range LEUKOCY 9.6 4.0 - x10(3)/ No No October 16 NAVNEET 11.0 mcL informa informa 2014 tion in tion in 8:59 PM source source data data Erythro 4.57 3.80 - x10(6)/ No No October 16 cytes 5.10 mcL informa informa 2014 [#/volu tion in tion in 8:59 PM me] in source source Blood data data by Automat ed count Hemoglo 13.8 12.0 - gm/dL No No October 16 bin 15.6 informa informa 2014 [Mass/v tion in tion in 8:59 PM olume] source source in data data Blood Hematoc 40.4 35.7 - % No October 16 rit 45.9 informa informa 2014 [Volume tion in tion in 8:59 PM source source Fractio data data n] of Blood by Automat ed count Erythro 88.3 82.5 - fL No October 16 cyte 99.8 informa informa 2014 mean tion in tion in 8:59 PM corpusc source source ular data data volume [Entiti c volume] by Automat ed count Erythro 30.2 27.0 - pg No October 16 cyte 34.3 informa informa 2014 mean tion in tion in 8:59 PM corpusc source source ular data data hemoglo bin [Entiti c mass] by Automat ed count Erythro 34.1 32.1 - gm/dL No October 16 cyte 35.3 informa informa 2014 mean tion in tion in 8:59 PM corpusc source source ular data data hemoglo bin concent ration [Mass/v olume] by Automat ed count Erythro 14.6 11.5 - % No October 16 cyte 15.0 informa informa 2014 distrib tion in tion in 8:59 PM ution source source width data data [Ratio] by Automat ed count Platele 198 144 - x10(3)/ No October 16 ts 423 mcL informa informa 2014 [#/volu tion in tion in 8:59 PM me] in source source Blood data data by Automat ed count MPV 8.7 6.8 - fL No October 16 10.8 informa informa 2014 tion in tion in 8:59 PM source source data data EK EKG 12 LEAD Observa Value Referen Units Interpr Notes Date tion ce etation Range Station No No No No October 16 romario ECG informa informa informa informa 2014 tion in tion in tion in tion in 8:41 PM Study\. source source source source br\St. data data data data Elizabe th Florenc e\.br\I nterpre tive Stateme nts\.br \SINUS RHYTHM\ .br\NON SPECIFI C ST & T-WAVE ABNORMA LITY r/o lateral ischemi a\.br\n o old ekg's for compari son\.br \Electr onicall y Signed On 2014-10 09:12:5 9 EDT by Tariq mason MD XR CHEST PA AND LATERAL Observa Value Referen Units Interpr Notes Date ti ce etation Range XR No No No No October 16 CHEST informa informa informa informa 2014 PA AND tion in tion in tion in tion in 7:49 PM LATERAL source source source source October data data data data 2014 07:49:5 5 PM\.br\ \.br\HI STORY: [Pain ]\.br\\ .br\DREAD HNIQUE: [Two views ]\.br\\ .br\COM PARISON : October 27, 2008\.b r\\.br\ FINDING S:\.br\ \.br\St ernotom y wires have been removed . The heart is normal size. Pulmona ry\.br\ vascula ture is within\ .br\nor mal limits. The lungs appear clear without pleural effusio n or\.br\ pneumot horax.\ .br\\.b r\IMPRE SSION:\ .br\\.b r\No acute disease .
--- OUTSIDE RECORDS SUMMARY | 2017-05-03 20:56 | External Medical Summary Rpt ---
[...] in 8:59 PM source source data data Tensas# 0.6 0.0 - x10(3)/ No No October [...]
[2017-05-03 22:47] VITALS: BP 127/72
--- NOTE | 2017-05-03 22:53 | RADIOLOGY REPORT PS360 ---
CHEST-PORTABLE Ordering Physician: Tasha Hickman MD Patient Age: 56 years: Female HISTORY: CHEST PAIN chest pain TECHNIQUE: AP portable upright chest. COMPARISON :620 12/29 and 05/01/2016 CXR. But also a CT chest 08/09/2011 FINDINGS Large patient. However when compared to the previous November 2016 study I see no significant new findings. Overlying breast and to the density towards the lung bases. There are some mild interstitial coarsening bilaterally most evident towards the lung bases likely chronic changes. . . borderline cardiomegaly.. Likely CABG graft markers noted. Abby and mediastinal structures appear satisfactory. Stable Normal pulmonary vascularity. No pleural effusion IMPRESSION: Stable chest with nothing definitely acute. . Again notedBorderline/mild cardiomegaly.
== END 2017-05-03 22:49 | disposition home or self-care (01) ==
LOC: ER 20:01
PROVIDERS: Emergency Medicine
DX: R07.2 Precordial pain (principal); Z79.82 Long term (current) use of aspirin; I25.10 Atherosclerotic heart disease of native coronary artery without angina pectoris; I10 Essential (primary) hypertension; E78.5 Hyperlipidemia, unspecified; J44.9 Chronic obstructive pulmonary disease, unspecified; F41.9 Anxiety disorder, unspecified; F17.210 Nicotine dependence, cigarettes, uncomplicated; Z88.8 Allergy status to other drugs, medicaments and biological substances